=== PATIENT | male | born 1945 | race Caucasian/White ===

== ENCOUNTER 2017-06-19 22:35 | Inpatient (IN) | payer MEDICARE, BC ==
[2017-06-19] MEDS ORDERED: Cefepime 2 GM/10 ML SYR ONE (23:16)
[2017-06-19] MEDS ORDERED: methylPREDNISolone Sod Succ/PF 125 MG/2 ML VIAL ONE (23:16)
[2017-06-19] MEDS ORDERED: Acetaminophen 500 MG TAB ONE (23:16)
--- NOTE | 2017-06-19 23:19 | RAD ---
PORTABLE CHEST: History: Shortness of breath. FINDINGS: Comparison 01-27-17. Heart size is within normal limits. There are chronic lung changes with elevation of the right hemidi aphragm. No definite acute process. Interstitial change in the left base appears to be scarring and i s less prominent than on the prior exam. IMPRESSION: Chronic lung change. POS: H
[2017-06-19 23:21] LABS: INR-International Normal Ratio 1.1; PTT 29.1 SEC (22.9-36.1); Prothrombin Time 14.1 SEC (12.0-14.7)
[2017-06-19 23:29] LABS: Band 24 % (5-11); Hemoglobin 14.3 g/dL (14.0-18.0); Lymphocytes 5 % (21-51); MDiff Complete? YES; Mean Corpuscular HGB CONC 33.5 g/dL (32.0-36.0); Mean Corpuscular Hemoglobin 31.5 pg (27.0-31.0); Mean Corpuscular Volume 93.9 fl (80.0-94.0); Mean Platelet Volume 7.3 fL (7.4-10.4); Monocytes 2 % (0-10); Neutrophil 69 % (42-75); PLT Morphology Comment Appears Adequate; Platelet Count 261 thou/uL (130-400); RBC Distribution Width 13.5 % (11.5-14.5); Red Blood Cell (RBC) Count 4.54 mill/uL (4.70-6.10); White Blood Cell (WBC) Count 20.5 thou/uL (4.8-10.8)
[2017-06-19] MEDS ORDERED: Oseltamivir 75 MG CAP PO SCH (23:30)
[2017-06-19 23:36] LABS: pH, Arterial 7.34 (7.35-7.45)
[2017-06-19 23:37] LABS: Actual Bicarbonate (HCO3a) 29.7 mEq/L (22-26); Base Excess (BEa) 2.9 mEq/L (0 (+/-) 2.5); CO2 Tension 56.2 mmHg (35.0-45.0); O2 Tension (PaO2) 79.3 mmHg (80.0-100.0)
[2017-06-19 23:38] LABS: ALT (SGPT) 31 U/L (8-55); AST (SGOT) 30 U/L (5-34); Albumin 3.8 g/dL (3.4-4.8); Alkaline Phosphatase 67 U/L (40-150); Anion Gap 13 mmol/L (10-20); BUN (Urea Nitrogen) 12 mg/dL (8.4-25.7); Bilirubin, Total 0.9 mg/dL (0.2-1.2); CK (CPK) 143 U/L (30-200); Calc. Creatinine Clearance 0 mL/min (70-130); Calcium 9.1 mg/dL (7.8-10.44); Carbon Dioxide 29 mmol/L (23-31); Chloride 99 mmol/L (98-107); Estimated GFR-MDRD Greater than 90; Globulin 2.7 g/dL (2.4-3.5); Glucose 116 mg/dL (83-110); Lipase 10 U/L (8-78); Potassium 3.9 mmol/L (3.5-5.1); Protein, Total 6.5 g/dL (5.8-8.1); Sodium 137 mmol/L (136-145)
[2017-06-19 23:38] LABS: Analyzer IN Cardio ER; Calcium, Ionized 1.1 mmol/L (1.12-1.30); Puncture Site RRA
[2017-06-19 23:41] LABS: CKMB 4.6 ng/mL (0-6.6); Troponin I Less than 0.010 ng/mL (< 0.028)
[2017-06-19] MEDS ORDERED: Albuterol Sulfate 2.5 mg/3 ml Neb ONE (23:56)
[2017-06-20] MEDS ORDERED: HYDROcodone/Acetaminophen 10/325 mg Tablet PO PRN (03:18)
[2017-06-20] MEDS ORDERED: Ondansetron HCl/PF 4 MG/2 ML Vial IVP PRN (03:18)
[2017-06-20] MEDS ORDERED: HYDROcodone/Acetaminophen 5/325 mg Tablet PO PRN (03:18)
[2017-06-20] MEDS ORDERED: Ondansetron ODT 4 MG TAB PO PRN (03:18)
[2017-06-20] MEDS ORDERED: Albuterol Sulfate 2.5 mg/3 ml Neb NEB PRN (03:18)
[2017-06-20 03:48] VITALS: BMI 20.6
--- NOTE | 2017-06-20 03:51 | HP ---
DATE OF ADMISSION: 06/20/2017 CHIEF COMPLAINT: Shortness of breath. HISTORY OF PRESENT ILLNESS: This is a 71-year-old white male known patient to Dr. Tidwell for a COPD . Patient has been following up with Dr. Tidwell last time he visited him was on the last Monday as a regular followup visit and the patient was having some persistent cough with sputum production, so he was started on some antibiotic and following that, the patient had visited at home his grandchi ld 1-year-old was sick with a fever and a cough. The patient since then he was feeling very weak and this was followed by cough and shortness of breath worsening. Patient is a nonsmoker and has been t rying to quit smoking. No history of alcohol, no history of illicit drug use. The patient has felt acutely short of breath today and he decided to come to the ER for further evaluation. When the david ent arrived to the ER, the patient was pretty hypoxic with fever and patient was tested for the flu, which came back negative, but he was given Tamiflu in the ER. Respiratory panel was sent for culture s. The patient had an initial ABG with a pH of 7.3 and CO2 retention of 56, pO2 of 79. The patient was started on the BiPAP and he was doing fine. He was able to speak in sentences while he was on th e BiPAP. He denies having any chest pain, no nausea, no vomiting. He had low blood pressures while on the BiPAP, but according to the , he always runs low blood pressures. He was given 2 liters o f fluid bolus in the ER, he still remained in 91/55 with a map of 100. PAST MEDICAL HISTORY: 1. Chronic obstructive pulmonary disease. 2. History of chronic respiratory failure on home oxygen. 3. Posttraumatic stress disorder. 4. Multiple thoracic spine compression fractures. PAST SURGICAL HISTORY: Significant for left knee surgery and bilateral cataract surgery. ALLERGIES: No known drug allergies. SOCIAL HISTORY: The patient is an ex-smoker, quit smoking a few weeks ago. He drinks alcohol occasi onally. No history of illicit drug use. FAMILY HISTORY: Has a history of congestive heart failure at the age of 70s, both the parents. HOME MEDICATIONS: Home medications have been reconciled. Please see the medication list. ALLERGIES: No known drug allergies. REVIEW OF SYSTEMS: All 12 systems are reviewed with the patient thoroughly and found to be negative at this time. Constitutional: Weight loss or gain, sense of well-being, ability to conduct usual ac tivities, exercise tolerance. Skin/Breast: Rash, itching, changes in hair growth or loss, nail herrera ges, breast lumps, tenderness, swelling, nipple discharge. Eyes: Vision, double vision, tearing, bl ind spots, pain. ENT/Mouth: Headaches (location, time of onset, duration, precipitating factors), v ertigo, lightheadedness, injury. Vision, double vision, tearing, blind spots, pain, nose bleeding, c olds, obstruction, discharge, dental difficulties, gingival bleeding, dentures, neck stiffness, pain, tenderness, masses in thyroid or other areas. Cardiovascular: Precordial pain, substernal distress , palpitations, syncope, dyspnea on exertion, orthopnea, nocturnal paroxysmal dyspnea, edema, cyanosi s, hypertension, heart murmurs, varicosities, phlebitis, claudication. Respiratory: Pain, shortness of breath, wheezing, stridor, cough, hemoptysis, fever or night sweats. Gastrointestinal: Poor yoav etite, dysphagia, indigestion, abdominal pain, heartburn, eructation, nausea, vomiting, hematemesis, jaundice, constipation, or diarrhea, abnormal stools (jossie-colored, tarry, bloody, greasy, foul smell ing), flatulence, hemorrhoids, recent changes in bowel habits. Genitourinary: Urgency, frequency, d ysuria, nocturia, hematuria, polyuria, oliguria, unusual (or change in) color of urine, stones, hesit salty, change in size of stream, dribbling, acute retention or incontinence, libido, potency. Musculo skeletal: Pain, swelling, redness or heat of muscles or joints, limitation, of motion, muscular weak ness, atrophy, cramps. Neurologic/Psychiatric: Convulsions, paralyses, tremor, incoordination, para sthesias, difficulties with memory of speech, sensory or motor disturbances, or muscular coordination (ataxia, tremor), emotional problems, anxiety, depression, previous psychiatric care, unusual percep tions, hallucinations. Allergy/Immunologic: Skin rash, anemia, bleeding tendency, polydipsia, polyu mirtha, intolerance to heat or cold. PHYSICAL EXAMINATION: VITAL SIGNS: Blood pressures are 91/55, heart rate is 90, respiratory rate is 18, saturation is 92% on 30% FiO2 on BiPAP. GENERAL: The patient is seen lying in the bed on BiPAP, is alert and oriented. HEENT: Atraumatic, normocephalic. PERRLA. Extraocular movements were intact. Oral mucosa is pink and moist. CARDIOVASCULAR: S1, S2 normal. No murmurs, rubs, or gallops. LUNGS: Bilateral air entry was equal. No wheezing, no crackles. ABDOMEN: Soft, nontender, no guarding, no rebound tenderness. Bowel sounds are normal. MUSCULOSKELETAL: No calf tenderness. No pedal edema. No joint tenderness, no joint swelling. SKIN: No cyanosis, no edema, no rash, no pallor. NEUROLOGIC: Cranial nerve examination II through XII intact. No focal deficits are noted. LABORATORY DATA: WBC is 20.5, hemoglobin is 14.3, hematocrit 42.7, platelets 261. Sodium 137, potas sium 3.9, chloride is 99, bicarbonate is 29, BUN 12, creatinine 0.83. Blood gases pH was 7.3, pCO2 56.2, pO2 of 79.3. Influenza A and B were negative. ASSESSMENT AND PLAN: 1. Acute hypoxic respiratory failure. 2. Acute chronic obstructive pulmonary disease exacerbation. 3. Acute hypotension. 4. Sepsis. 5. Hypertension. PLAN: 1. Plan is to admit this patient to the IMCU. At this time, we will continue the patient on the BiP AP at this settings and we will repeat the ABG in the morning. Patient was on BiPAP almost for an ho ur and he continues to be short of breath, but his wheezing has much improved. We will continue with the DuoNebs and albuterol nebulizer treatments. We will start the patient on Solu-Medrol at 40 mg I V q.6 hours. We will consult Dr. Tidwell, who was known patient to him and has been recently followi ng up. 2. The patient was on antibiotic from Dr. Tidwell. At this time, we will start the patient on Levof loxacin 750 mg IV daily for his sepsis-like picture at this time. We will get the sputum cultures an d blood cultures pending at this time. 3. Patient has low blood pressures, likely from the sepsis. He was given 2 liters of fluid boluses in the ER. We will continue with the normal saline at 100 mL an hour and closely monitor for any rhonda dence of volume overload. 4. Deep venous thrombosis prophylaxis, Lovenox 40 mg subcu daily. I spent 75 minutes of this patient. Of this, one hour is the critical care time.
[2017-06-20] MEDS: Sodium Chloride 0.9% 1,000 ML IV SCH ×3 (04:22→23:10)
[2017-06-20 04:57] LABS: Anion Gap 10 mmol/L (10-20); BUN (Urea Nitrogen) 11 mg/dL (8.4-25.7); Calc. Creatinine Clearance 74 mL/min (70-130); Calcium 7.8 mg/dL (7.8-10.44); Carbon Dioxide 25 mmol/L (23-31); Chloride 105 mmol/L (98-107); Estimated GFR-MDRD Greater than 90; Glucose 162 mg/dL (83-110); Potassium 4.1 mmol/L (3.5-5.1); Sodium 136 mmol/L (136-145)
[2017-06-20 05:20] LABS: Band 34 % (5-11); Hemoglobin 11.9 g/dL (14.0-18.0); Lymphocytes 1 % (21-51); MDiff Complete? YES; Mean Corpuscular HGB CONC 32.2 g/dL (32.0-36.0); Mean Corpuscular Hemoglobin 30.6 pg (27.0-31.0); Mean Corpuscular Volume 94.9 fl (80.0-94.0); Mean Platelet Volume 7.4 fL (7.4-10.4); Monocytes 3 % (0-10); Neutrophil 62 % (42-75); PLT Morphology Comment Appears Adequate; Platelet Count 227 thou/uL (130-400); RBC Distribution Width 13.5 % (11.5-14.5); Red Blood Cell (RBC) Count 3.89 mill/uL (4.70-6.10); White Blood Cell (WBC) Count 26.5 thou/uL (4.8-10.8)
[2017-06-20] MEDS: Budesonide 0.5 MG/2 ML NEB INH SCH ×2 (07:10→19:43)
[2017-06-20] MEDS ORDERED: Oseltamivir 75 MG CAP PO SCH (09:00)
[2017-06-20] MEDS: Enoxaparin Sodium 40 MG/0.4 ML SYRINGE SC SCH (09:36)
[2017-06-20] MEDS: Famotidine/PF 20 mg/2ml Vial SLOW IVP SCH ×2 (09:37→20:34)
[2017-06-20] MEDS: Docusate 100 MG CAP PO SCH ×2 (09:37→20:35)
--- NOTE | 2017-06-20 09:53 | CON ---
DATE OF CONSULTATION: 06/20/2017 HISTORY: He is a 71-year-old gentleman who saw Dr. Tidwell a few days ago with symptoms of shortness of breath. He presents now with fever, cough, and chest discomfort. X-ray in the ER showed elevated right hemidiaphragm. He has a temperature of 102. The patient has known history of COPD. This morning he is on BiPAP. He feels better. Denies any pa in, breathing is better. His sputum is still relatively clear. PAST MEDICAL HISTORY: Pertinent for severe COPD requiring low flow O2 at home. History of reflux. PAST SURGICAL HISTORY: Cataract surgery, knee surgery. HOSPITALIZATIONS: Previous hospitalization here prolonged with reviewing his old medical records lef t-sided pneumonia, posttraumatic stress syndrome, multiple thoracic spine fractures during his last v isit 01/2017. TOBACCO/ALCOHOL: Tobacco, quit smoking last year, no alcohol abuse. SOCIAL/FAMILY HISTORY: Otherwise unremarkable. MEDICATIONS: His list of medication from home included DuoNeb, ibuprofen, budesonide, aspirin, Brova na, clonazepam 0.5, prednisone 10 a day, low flow O2. ALLERGIES: None. FAMILY HISTORY: Unremarkable. Please note I reviewed all his old medical records. No family members here to discuss additional inf ormation from them. REVIEW OF SYSTEMS: Ten point negative. PHYSICAL EXAMINATION: VITAL SIGNS: He sats are 90% on BiPAP. Blood pressure 90/80, respiration 18, pulse 80. GENERAL: Awake, responsive. CHEST: Decreased breath sounds, no wheezing. CARDIAC: Normal S1-S2. No gallops. ABDOMEN: Soft. No masses. NEUROLOGIC: Awake, alert, responsive. LABORATORY: White count 26,000, H&H 9 and 36, platelet count is 270, pO2 of 59, pO2 63.7. Electroly silvana are normal. I reviewed all of his x-ray reports and all of his lab tests. His influenza titer was negative. IMPRESSION: 1. Chronic obstructive pulmonary disease exacerbation with elevated hemidiaphragm. 2. Negative influenza titer 3. Leukocytosis. PLAN: I agree with broad-spectrum antibiotics, Tamiflu. I will repeat influenza titer, if it is neg ative I will discontinue the Tamiflu. Continue hydration, neb treatments, steroids. PT and supportive care. This is a consultation note on the patient of which was 70 minutes, [facility].
[2017-06-20] MEDS: Mometasone/Formoterol 120 PUFF INHALER INH SCH (20:04)
[2017-06-21] MEDS ORDERED: clonazePAM 0.5 MG TAB PO PRN (03:23)
[2017-06-21] MEDS: Sodium Chloride 0.9% 1,000 ML IV SCH (07:35)
[2017-06-21] MEDS: Docusate 100 MG CAP PO SCH (07:57)
[2017-06-21] MEDS: Enoxaparin Sodium 40 MG/0.4 ML SYRINGE SC SCH (07:57)
[2017-06-21] MEDS: Famotidine/PF 20 mg/2ml Vial SLOW IVP SCH (07:57)
[2017-06-21] MEDS: Budesonide 0.5 MG/2 ML NEB INH SCH (08:29)
--- NOTE | 2017-06-21 08:29 | PDOC.PULPN ---
Progress Note: Subj/Obj - Subjective Date: 06/21/17 Time: 08:28 Narrative: Feels better and wants to go home - ROS Constitutional: weakness Respiratory: congestion, short of breath - Objective Allergies/Adverse Reactions: Allergies Allergy/AdvReac Type Severity Reaction Status Date / Time No Known Allergies Allergy Verified 06/20/17 03:47 Medications: Current Medications Hydrocodone Bitart/Acetaminophen ([place] 10/325) 1 tab PO Q4H PRN PRN Reason: Moderate Pain (4-6) Hydrocodone Bitart/Acetaminophen (Independence 5/325) 1 tab PO Q4H PRN PRN Reason: Moderate Pain (4-6) Albuterol Sulfate (Ventolin) 2.5 mg NEB Q2H PRN PRN Reason: SOB &/or Wheezing Albuterol/Ipratropium (Duoneb) 3 ml NEB [id number] [facility] Last Admin: 06/21/17 03:02 Dose: 3 ml Budesonide (Pulmicort Neb Solution) 0.5 mg INH BID-RT [facility] Last Admin: 06/20/17 19:43 Dose: 0.5 mg Clonazepam (Klonopin) 0.5 mg PO BIDPRN PRN PRN Reason: Anxiety/Agitation Last Admin: 06/21/17 03:28 Dose: 0.5 mg Docusate Sodium (Colace) 100 mg PO BID [facility] Last Admin: 06/21/17 07:57 Dose: Not Given Enoxaparin Sodium (Lovenox) 40 mg SC 0900 [facility] Last Admin: 06/21/17 07:57 Dose: 40 mg Famotidine (Pepcid) 20 mg SLOW IVP Q12HR [facility] Last Admin: 06/21/17 07:57 Dose: 20 mg Levofloxacin 750 mg/ Device 150 mls @ 100 mls/hr IVPB Q24HR [facility] Last Admin: 06/20/17 23:09 Dose: 150 mls Sodium Chloride (Normal Saline 0.9%) 1,000 mls @ 100 mls/hr IV .Q10H [facility] Last Admin: 06/21/17 07:35 Dose: Not Given Methylprednisolone Sodium Succinate (Solu-Medrol) 40 mg IVP Q6HR [facility] Last Admin: 06/21/17 05:46 Dose: 40 mg Mometasone Furoate/Formoterol Fumar (Dulera 200 Mcg/5 Mcg Inhaler) 2 puff INH BID-RT [facility] Last Admin: 06/20/17 20:04 Dose: 2 puff Ondansetron HCl (Zofran Odt) 4 mg PO Q6H PRN PRN Reason: Nausea/Vomiting Ondansetron HCl (Zofran) 4 mg IVP Q6H PRN PRN Reason: Nausea/Vomiting MAR Reviewed: Yes Vital Signs: Vital Signs Temp 98.6 F 06/21/17 07:11 Pulse 94 06/21/17 07:11 Resp 19 06/21/17 07:11 BP 97/50 L 06/21/17 07:11 Pulse Ox 100 06/21/17 07:11 Intake & Output 06/20/17 06/21/17 06/21/17 18:59 06:59 18:59 Intake Total 1591 1200 Output Total 2024 610 Balance -434 590 Intake: Intake, IV Amount 891 800 Sodium Chloride 0.9% 1, 891 000 ml @ 100 mls/hr IV . Q10H [facility] Rx#:[id number] Oral 700 400 Output: Urine 2024 610 Other: Voiding Method Urinal Urinal # Bowel Movements 1 Progress Note: Exam - Physical Exam Deviation from normal: chronically dyspnic HEENT: PERRLA Neck: no nodes, no JVD Cardiovascular: RRR Focused Respiratory Location: decreased breath sounds: Right, Left (no wheezes) Gastrointestinal: soft, non-tender Musculoskeletal: edema present Neurological: non-focal, normal sensation, moves all 4 limbs Lymphatic: no nodes Psychiatric: normal affect, A&O x 3 Skin: no rash Progress Note: Data - Labs Result Diagrams: 06/20/17 04:29 06/20/17 04:29 Lab results: Laboratory Results 06/20/17 06/20/17 04:29 04:29 WBC 26.5 H RBC 3.89 L Hgb 11.9 L Hct 36.9 L MCV 94.9 H MCH 30.6 MCHC 32.2 RDW 13.5 Plt Count 227 MPV 7.4 Neutrophils % (Manual) 62 Band Neuts % (Manual) 34 H Lymphocytes % (Manual) 1 L Monocytes % (Manual) 3 Plt Morphology Comment Appears Adequate Sodium 136 Potassium 4.1 Chloride 105 Carbon Dioxide 25 Anion Gap 10 BUN 11 Creatinine 0.75 Estimated GFR (MDRD) Greater than 90 Glucose 162 H Calcium 7.8 Progress Note: A/P - Problems (1) Acute on chronic respiratory failure with hypoxia Current Visit: No Status: Acute Code(s): J96.21 - ACUTE AND CHRONIC RESPIRATORY FAILURE WITH HYPOXIA (2) COPD exacerbation Current Visit: No Status: Acute Code(s): J44.1 - CHRONIC OBSTRUCTIVE PULMONARY DISEASE W (ACUTE) EXACERBATION - Plan Plan: Back to baseline Should be good to go home (he has trilogy ventilator at home) Finish out 10 days of levaquin Can wean back down to his home prednisone dose over the next week
[2017-06-21] MEDS: Mometasone/Formoterol 120 PUFF INHALER INH SCH (08:30)
[2017-06-21 08:45] LABS: Hemoglobin 12.8 g/dL (14.0-18.0); Mean Corpuscular HGB CONC 31.5 g/dL (32.0-36.0); Mean Corpuscular Hemoglobin 30.3 pg (27.0-31.0); Mean Corpuscular Volume 96.2 fl (80.0-94.0); Mean Platelet Volume 7.7 fL (7.4-10.4); Platelet Count 227 thou/uL (130-400); RBC Distribution Width 13.7 % (11.5-14.5); Red Blood Cell (RBC) Count 4.23 mill/uL (4.70-6.10); White Blood Cell (WBC) Count 24.8 thou/uL (4.8-10.8)
[2017-06-21] MEDS ORDERED: predniSONE 20 MG TAB PO SCH (09:00)
[2017-06-21] MEDS ORDERED: clonazePAM 0.5 MG TAB PO SCH (09:00)
[2017-06-21 09:01] LABS: Band 23 % (5-11); Lymphocytes 2 % (21-51); MDiff Complete? YES; Monocytes 2 % (0-10); Neutrophil 73 % (42-75); PLT Morphology Comment Appears Adequate; Toxic Granulation SLIGHT
[2017-06-21 09:03] LABS: Anion Gap 10 mmol/L (10-20); BUN (Urea Nitrogen) 8 mg/dL (8.4-25.7); Calc. Creatinine Clearance 81 mL/min (70-130); Calcium 8.8 mg/dL (7.8-10.44); Carbon Dioxide 29 mmol/L (23-31); Chloride 104 mmol/L (98-107); Estimated GFR-MDRD Greater than 90; Glucose 161 mg/dL (83-110); Magnesium 2.4 mg/dL (1.6-2.6); Potassium 4.3 mmol/L (3.5-5.1); Sodium 139 mmol/L (136-145)
[2017-06-21 11:15] VITALS: BP 113/50; TEMP 99.4
--- NOTE | 2017-06-22 14:41 | DIS ---
DATE OF ADMISSION: 06/20/2017 DATE OF DISCHARGE: 06/21/2017 DISCHARGE DIAGNOSES: 1. Acute hypoxic respiratory failure. 2. Acute exacerbation of chronic obstructive pulmonary disease. 3. Acute hypotension. 4. Essential hypertension, chronic. 5. Sepsis. 6. Posttraumatic stress disorder. 7. History of multiple thoracic spine compression fractures. 8. Acute on chronic hypoxic respiratory failure. CONSULTATIONS: 1. Pulmonary Critical Care, Rolo Vasques M.D. 2. Andres Tidwell M.D. PROCEDURES: None. HISTORY AND PHYSICAL: Mr. Montelongo is a 72-year-old male with a history of chronic hypoxic respiratory failure and COPD who follows with Dr. Tidwell. The patient presented to the Emergency Department wi th shortness of breath and he has recently been having persistent cough and sputum production. He wa s started on antibiotic, visited family members with a sick child and since then he was feeling badly and feeling worse. He felt acutely worse on the day of admission and so he presented to the Emergen cy Department for evaluation. He was reportedly hypoxic with a heart rate of 90, oxygen saturation 9 2% on 30% FIO2 BiPAP, blood pressure low at 91/55 and reportedly febrile. White blood cell count was elevated at 20.5. We were called to admit. HOSPITAL COURSE: The patient was seen by Dr. Hernandez in the Emergency Department. The patient was adm itted to the intermediate care unit on BiPAP and Pulmonary was consulted. The patient was seen by Dr. Vasques same day. He recommended broad spectrum antibiotics, Tamiflu, repea ting influenza titer and hydration and treatment with steroids. Overnight 06/20 to 06/21, Dr. Tidwell took over for the Pulmonary Service. The patient was feeling b michael and wanting to go home. White blood cell count was 26.5 from the steroids. Vital signs were n ormal and his chemistry was normal. The patient has a Trilogy ventilator at home and was cleared for discharge by Dr. Tidwell and was recommended to finish a 10-day course of Levaquin. PHYSICAL EXAMINATION: The patient was seen and examined on the day of discharge. Discharge plan and disposition were discussed with the patient [id number] at the bedside. DISCHARGE MEDICATIONS: 1. Albuterol nebulizer treatment 2.5 mg nebulized every 2 hours as needed. 2. Levofloxacin 750 mg p.o. daily to finish 10 days. 3. Prednisone 20 mg p.o. b.i.d. to decrease by 10 mg every day, every second or third day until tape red off. 4. DuoNeb q.4. hours p.r.n. 5. Brovana 15 mcg inhaled b.i.d. 6. Budesonide 500 mg nebulized b.i.d. 7. Clonazepam 0.5 mg b.i.d. p.r.n. anxiety. 8. Ibuprofen 600 mg p.o. daily as needed for pain. 9. Aspirin 81 mg daily. He is to hold his regular dose of prednisone until he finishes his current steroids. DISCHARGE ACTIVITY: As tolerated per cardiopulmonary limits. DISCHARGE DIET: Heart healthy recommended. FOLLOWUP APPOINTMENTS: 1. Primary care physician within a week, Dr. Cyn Florian. 2. Dr. Andres Tidwell in 2-3 weeks. DISCHARGE CONDITION: Stable. DISPOSITION: Being discharged home via private vehicle.
== END 2017-06-21 13:46 | disposition home or self-care (01) | DRG 871 ==
LOC: ERS 22:35 → CCU 06-20 01:00 → IMCU/EMU 06-20 16:47
PROVIDERS: ADMIT Family Medicine; ATTEND Family Medicine
PROC: 5A09357 Assistance with Respiratory Ventilation, Less than 24 Consecutive Hours, Continuous Positive Airway Pressure (ICD-10-PCS; principal; 2017-06-20)
DX: A41.9 Sepsis, unspecified organism (principal); J96.21 Acute and chronic respiratory failure with hypoxia; J44.1 Chronic obstructive pulmonary disease with (acute) exacerbation; I10 Essential (primary) hypertension; Z87.891 Personal history of nicotine dependence
CPT/HCPCS: 36415; 71045; 80048; 80053; 82553; 82805; 83605; 83690; 83735; 83880; 84443; 84484; 85025; 85610; 85730; 86850; 86900; 86901; 87040; 87070; 87205; 87633; 87804; 93005; 94640; 94660; 94664; 96361; 96365; 96366; 96375; G8978-GP-CM; G8979-GP-CK; J0692; J1650; J1956; J2920; J2930; J3370; J7611; J7620; J7626; S0028

== ENCOUNTER 2017-12-06 09:47 | Outpatient (CLI) | payer MEDICARE, BC ==
--- NOTE | 2017-12-06 11:02 | RAD ---
TWO VIEWS CHEST: 12/06/2017 HISTORY: A 72-year-old with a history of dyspnea. COMPARISON: 07/02/2015 FINDINGS: Two views of the chest demonstrate multiple midthoracic compression fractures, which have increased s jami the previous exam from 2016, with developing kyphosis also being present. There is diffuse oste oporosis seen. There is some elevation of the right hemidiaphragm. There are areas of air space opacities in the left lung base, concerning for areas of left lower lobe pneumonia. IMPRESSION: 1. Marked developing kyphosis and compression fractures in the mid thoracic region. 2. Left lower lobe area of opacity, concerning for possible pneumonia. Follow-up films to resolutio n recommended. POS: [facility]
== END 2017-12-06 09:48 | disposition home or self-care (01) ==
LOC: RAD 09:47
PROVIDERS: ATTEND Internal Medicine Critical Care Medicine
DX: R06.00 Dyspnea, unspecified (principal); M40.209 Unspecified kyphosis, site unspecified; S22.009A Unspecified fracture of unspecified thoracic vertebra, initial encounter for closed fracture; R91.8 Other nonspecific abnormal finding of lung field
CPT/HCPCS: 71046

== ENCOUNTER 2018-04-13 11:10 | Emergency (ER) | payer MEDICARE, BC ==
--- NOTE | 2018-04-13 13:50 | RAD ---
RIGHT WRIST 3 VIEWS: HISTORY: Fall. COMPARISON: None. FINDINGS: There is mild degenerative disease of the distal radial ulnar joint. There is no acute fracture or m alalignment. IMPRESSION: No acute fracture or malalignment. POS: [facility]
--- NOTE | 2018-04-13 13:54 | RAD ---
LUMBAR SPINE 3 VIEWS: HISTORY: Fall. COMPARISON: Lumbar spine radiograph of 2011. FINDINGS: New from the comparison examination is a wedge compression fracture of T12. Moderate degenerative di sk space height loss at L3-4, L4-5, and L5-S1. Advanced disk arthrosis lower lumbar spine. Extensive vascular calcifications. IMPRESSION: New since the prior examination wedge compression fracture of T12 with approximately 10-15% height lo ss. POS: [facility]
--- NOTE | 2018-04-13 13:57 | RAD ---
RIGHT HAND 3 VIEWS: HISTORY: Fall. COMPARISON: None. FINDINGS: No acute displaced fracture or malalignment. Soft tissues are unremarkable. IMPRESSION: No acute displaced fracture or malalignment. POS: [facility]
--- NOTE | 2018-04-13 13:59 | CT ---
CT BRAIN WITHOUT CONTRAST: HISTORY: Fall. COMPARISON: None. FINDINGS: Mild to moderate microvascular ischemic changes in the subcortical and deep white matter. No acute h emorrhage. No infarction. There is a right frontal soft tissue contusion. IMPRESSION: 1. No acute posttraumatic intracranial sequelae. 2. Small forehead soft tissue contusion with intact underlying calvarium. POS: [facility]
--- NOTE | 2018-04-13 16:15 | RAD ---
RADIOGRAPH CERVICAL SPINE 3 VIEWS: DATE: 04/13/2018 TIME: 3:46 p.m. HISTORY: A 72-year-old male status post acute cervical trauma from fall. FINDINGS: The levels inferior to the C5-C6 level are obscured by the shoulders on the lateral view. The odonto id is obscured on the open-mouth view. Hypertrophic degenerative facet changes at several levels on the left. The visualized vertebral body heights are maintained. Moderate disk space narrowing at C4 -C5 and C5-C6. No prevertebral soft tissue swelling. Diffuse osteopenia. IMPRESSION: 1. Significant portions of the cervical spine are not visualized and cannot be evaluated. 2. cervical spondylosis: Moderate degenerative disk changes at C4-C5 and C5-C6, and multilevel left facet osteoarthrosis. 3. Osteopenia. SHIVAM [] POS: [facility]
--- NOTE | 2018-04-13 16:18 | RAD ---
RADIOGRAPH THORACIC SPINE THREE VIEWS: DATE: 04/13/2018 TIME: 3:49 p.m. HISTORY: A 72-year-old male, status post acute thoracic trauma from fall. COMPARISON: 01/08/2016 FINDINGS: Diffuse osteopenia. Multiple compression fractures in the mid and lower thoracic spine. There is a greater number of vertebral bodies involved with the compression fractures, and some of the loss of h eight has worsened, since the previous. Again noted are the old, displaced, healed fracture deformities at the posterior aspects of the right third, fourth, and fifth ribs. IMPRESSION: 1. Multiple compression fractures of the thoracic spine, at the mid and lower levels. At least some of them are old. Others are of indeterminate age, but occurred some time after the previous thoraci c spine radiograph of 01/08/2016. 2. Diffuse osteopenia. 3. Old right rib fracture deformities. POS: [facility]
[2018-04-13] MEDS ORDERED: Acetaminophen 325 MG TAB ONE (16:19)
--- NOTE | 2018-04-13 16:20 | RAD ---
RADIOGRAPH SACRUM AND COCCYX TWO VIEWS: 04/13/2018 HISTORY: A 72-year-old male with acute, traumatic sacrococcygeal pain. FINDINGS: There is diffuse osteopenia. No obvious fracture is identified, but the osteopenia and the overlying bowel gas and stool could easily obscure a fracture. There are high-grade degenerative facet change s in the lower lumbar spine. IMPRESSION: 1. No fracture identified. 2. Osteopenia. 3. Lower lumbar spondylosis with facet osteoarthrosis. POS: [facility]
== END 2018-04-13 19:37 | disposition left against medical advice (07) ==
LOC: ERS 11:10
DX: S22.089A Unspecified fracture of T11-T12 vertebra, initial encounter for closed fracture (principal); J44.9 Chronic obstructive pulmonary disease, unspecified; F90.9 Attention-deficit hyperactivity disorder, unspecified type; Z79.1 Long term (current) use of non-steroidal anti-inflammatories (NSAID); Z79.82 Long term (current) use of aspirin; Z79.899 Other long term (current) drug therapy; W18.09XA Striking against other object with subsequent fall, initial encounter
CPT/HCPCS: 70450; 72040; 72072; 72100; 72220

== ENCOUNTER 2018-04-20 09:40 | Inpatient (IN) | payer MEDICARE, BC ==
[2018-04-20] MEDS ORDERED: EPINEPHrine 1 MG/10 ML Abboject SYRINGE ONE (09:56)
[2018-04-20] MEDS ORDERED: EPINEPHrine 1 MG/ML AMP ONE (09:56)
[2018-04-20] MEDS ORDERED: Midazolam HCl 5 mg/ml Vial ONE (10:03)
[2018-04-20] MEDS ORDERED: fentaNYL Citrate/PF 2,000 MCG in Sodium Chloride 0.9% 60 ML IV SCH (10:09)
[2018-04-20 10:25] LABS: Mean Corpuscular HGB CONC 32.3 g/dL (32.0-36.0); Mean Corpuscular Hemoglobin 31.4 pg (27.0-31.0); Mean Corpuscular Volume 97.1 fL (78.0-98.0); Mean Platelet Volume 7.4 fL (7.4-10.4); Platelet Count 296 thou/uL (130-400); RBC Distribution Width 13.6 % (11.5-14.5); Red Blood Cell (RBC) Count 4.45 mill/uL (4.70-6.10); White Blood Cell (WBC) Count 14.3 thou/uL (4.8-10.8)
[2018-04-20] MEDS ORDERED: Piperacillin/Tazobactam 4.5 GM VIAL ONE (10:35)
--- NOTE | 2018-04-20 10:36 | RAD ---
SUPINE FRONTAL CHEST: Date: 04/20/18 COMPARISON: 06/19/17. HISTORY: Shortness of breath. FINDINGS: An endotracheal tube projects over the tracheal air column, the distal tip approximately 4-5 cm proxi mal to the edgardo. An enteric tube extends into the left upper quadrant. Supine imaging is provided, demonstrating elevation of right hemidiaphragm, stable. There is nonspecific increased linear density in the medial aspect of both lung bases. This nonspecific linear density has increased in the right cardiophrenic angle when compared to the prior examination. The increased linear density in the left base appears stable. Supine imaging limits assessment for pneumothorax and pleural fluid. There are old right-sided rib fr actures. IMPRESSION: Lines and tubes as above. Hazy increased density in the medial lung bases, right greater than left, w hich may signify infectious pneumonitis or aspiration. Follow-up to resolution advised. POS: [facility]
[2018-04-20 10:37] LABS: Actual Bicarbonate (HCO3a) 34.1 mEq/L (22-28); Analyzer IN Cardio ER; Base Excess (BEa) 6.5 mEq/L (-2.0 to +3.0); Calcium, Ionized 1.12 mmol/L (1.12-1.30); Carboxyhemoglobin (COHb) 0.9 gm% (0.0-3.0); Hemoglobin (Hb) 13.7 g/dL (14.0-18.0); Potassium - ABG Lab 3.52 mmol/L (3.70-5.30); pH, Arterial 7.36 (7.35-7.45)
[2018-04-20 10:39] LABS: CO2 Tension 62.3 mmHg (35.0-45.0)
[2018-04-20 10:40] LABS: ALV-art Gradient 162.325 (0-20); Puncture Site RBA
[2018-04-20 10:43] LABS: ALT (SGPT) 61 U/L (8-55); AST (SGOT) 33 U/L (5-34); Albumin 3.3 g/dL (3.4-4.8); Alkaline Phosphatase 135 U/L (40-150); BUN (Urea Nitrogen) 17 mg/dL (8.4-25.7); Bilirubin, Total 1.1 mg/dL (0.2-1.2); Calc. Creatinine Clearance 0 mL/min (70-130); Calcium 9.6 mg/dL (7.8-10.44); Estimated GFR-MDRD Greater than 90; Globulin 3.6 g/dL (2.4-3.5); Glucose 168 mg/dL (83-110); Protein, Total 6.9 g/dL (5.8-8.1)
[2018-04-20 10:47] LABS: CKMB 2.7 ng/mL (0-6.6); Troponin I Less than 0.010 ng/mL (< 0.028)
[2018-04-20 10:49] LABS: Band 38 % (5-11); Lymphocytes 6 % (21-51); MDiff Complete? YES; Monocytes 5 % (0-10); Neutrophil 51 % (42-75); PLT Morphology Comment Appears Adequate; Toxic Granulation SLIGHT
[2018-04-20 10:54] LABS: Anion Gap 18 mmol/L (10-20); Carbon Dioxide 32 mmol/L (23-31); Chloride 93 mmol/L (98-107); Potassium 4.2 mmol/L (3.5-5.1); Sodium 139 mmol/L (136-145)
[2018-04-20 11:31] LABS: Bilirubin Small (Negative); Blood, Urine Negative (Negative); Clarity CLEAR (Clear); Glucose, Urine (Dipstick) Negative (Negative); Leukocyte Negative (Negative); Nitrite Negative (Negative); Protein, Urine (Dipstick) 30 mg/dL (Neg-Trace); Specific Gravity, Urine 1.026 (1.002-1.036); pH, Urine 6.5 (5.0-9.0)
[2018-04-20 11:33] LABS: Bacteria/HPF None Seen HPF (None Seen); Hyaline Casts/LPF 7-10 HYALINE CAST LPF (0-3 Hyaline); Pathc Cast-AUWi Flag 0.58 (0-2.49); RBC/HPF 0-3 HPF (0-3); Squamous Epithelial 0-3 HPF (0-3); WBC/HPF None Seen HPF (0-3)
[2018-04-20] MEDS ORDERED: Norepinephrine 8 MG/0.9% NS 250 ML ONE (11:43)
--- NOTE | 2018-04-20 12:04 | CT ---
CTA OF THE THORAX UTILIZING IV CONTRAST WITH 3D REFORMATTED IMAGING: Date: 04/20/18 COMPARISON: Prior exam dated 06/26/15 and radiograph dated 01/08/16. FINDINGS: There is aspiration pneumonitis involving both lower lobes, as well as the right middle lobe. The con solidation slightly limits evaluation of the segmental vasculature of both lower lobes, right greater than left. No definite central or segmental pulmonary embolus is grossly evident within limitations of exam. There is severe emphysema. There is a calcified granuloma of the right upper lobe. There are calcifications involving the thoracic aorta and coronary arteries. The patient is intubated with a g astric catheter projecting into the stomach. Please see the separately dictated CT of the abdomen for results concerning the abdomen. There are compression abnormalities of T12, T10, T9, T8, and T7. The T8, T10, and T12 compression abnormalities are new from the comparison radiograph dated 01/08/16, bu t are otherwise age-indeterminate. There is diffuse osteopenia. IMPRESSION: 1. Bibasilar aspiration pneumonitis. 2. No definite central pulmonary embolus demonstrated. 3. Age-indeterminate compression abnormalities of T8, T10, and T12. T9 and T7 compression abnormalities were seen on comparison radiograph dated 01/08/16. POS: [facility]
--- NOTE | 2018-04-20 12:12 | CT ---
CT ABDOMEN WITH CONTRAST CT PELVIS WITH CONTRAST: DATE: 04/20/18 HISTORY: 72-year-old male with fever and respiratory distress. COMPARISON: CT abdomen and pelvis of 04/11/14. TECHNIQUE: IV injection of iodinated contrast media: Administered. Oral contrast media: Not administered. FINDINGS: There is chronic elevation of the right hemidiaphragm. There is a new finding of consolidations in th e posterior bilateral lower lobe lung bases. See separate of the chest CT of today. There is colonic interposition. Heavy atherosclerotic calcification of abdominal aorta, common iliac arteries, externa l iliac arteries, and internal iliac arteries, but no aneurysm. Dial catheter within a nearly empty urinary bladder. Diffuse mural thickening of the urinary bladder up to 12 mm. Large amount of stool w ithin the rectum. Normal rectal wall thickness. Multiple sigmoid and descending colonic diverticula a re present, but no signs of diverticulitis. Left renal lower pole parenchymal 1 cm Cyst. Otherwise no rmal kidneys, liver parenchyma, pancreas, adrenals, and spleen. No appendicitis. No small bowel dilat ion. No abscess, free fluid, or pneumoperitoneum, within the abdominal cavity or pelvic cavity. Nasog astric tube distal tip is in the proximal stomach. There is multilevel degenerative disc disease and degenerative facet disease, with scoliosis, in the lumbar spine. IMPRESSION: 1. Bilateral lower lobe pulmonary consolidations. 2. Dial catheter within a collapsed urinary bladder that apparently has mural thickening. It is unc ertain whether the mural thickening is entirely due to its collapsed state, or whether there is an ac stebbins cystitis. Clinical correlation is recommended. 3. Colonic diverticulosis without acute diverticulitis. 4. Severe lumbar spondylosis, with scoliosis. 5. Atherosclerosis of the abdominal aorta and iliac arteries. JNR POS: [facility]
[2018-04-20] MEDS ORDERED: Norepinephrine 8 MG/0.9% NS 250 ML IVPB SCH (12:59)
[2018-04-20] MEDS ORDERED: Ventilator Sedation Protocol 1 EACH FS ONE (12:59)
[2018-04-20] MEDS ORDERED: CCU Electrolyte Replacement 1 EACH FS ONE (12:59)
[2018-04-20] MEDS ORDERED: Potassium Chloride 40 MEQ in Sodium Chloride 0.9% 250 ML 250 ML IVPB PRN (13:03)
[2018-04-20] MEDS ORDERED: Potassium Phosphate 9 MMOL in Sodium Chloride 0.9% 100 ML IVPB PRN (13:03)
[2018-04-20] MEDS ORDERED: Magnesium 2 GM/NS 0.9% 100 ML 2 GM in Premix Bag 1 BAG IVPB PRN (13:03)
[2018-04-20] MEDS ORDERED: Magnesium Oxide 400 MG TAB PO PRN ×2 (13:03)
[2018-04-20] MEDS ORDERED: Potassium Chloride 40 MEQ in Premix Bag 1 BAG IVPB PRN (13:03)
[2018-04-20] MEDS ORDERED: Potassium Chloride 20 MEQ TAB PO PRN (13:03)
[2018-04-20] MEDS ORDERED: CCU ELECTROLYTE REPLACEMENT PROTOCOL FS PRN (13:03)
[2018-04-20] MEDS ORDERED: Potassium Phosphate 15 MMOL in Sodium Chloride 0.9% 250 ML 250 ML IV PRN (13:03)
[2018-04-20] MEDS ORDERED: Potassium Phosphate 12 MMOL in Sodium Chloride 0.9% 250 ML 250 ML IV PRN (13:03)
[2018-04-20] MEDS ORDERED: DISCONTINUE PREVIOUS NARCOTIC PAIN MEDICATIONS AND BENZODIAZEPINES FS SCH (13:05)
[2018-04-20] MEDS ORDERED: Propofol BOLUS 1,000 MG/100 ML VIAL IV PRN (13:05)
[2018-04-20] MEDS ORDERED: Fentanyl BOLUS 250 ML IVPB PRN (13:05)
[2018-04-20] MEDS ORDERED: Fentanyl CADD 250 ML IVPB SCH (13:05)
[2018-04-20] MEDS ORDERED: Morphine 2 MG/ML SYRINGE SLOW IVP PRN (13:05)
[2018-04-20] MEDS ORDERED: Propofol 1,000 MG/100 ML VIAL IV PRN (13:05)
[2018-04-20 13:52] LABS: Troponin I 0.013 ng/mL (< 0.028)
[2018-04-20] MEDS ORDERED: Piperacillin/Tazobactam 3.375 GM in Sodium Chloride 0.9% 100 ML IVPB SCH (14:00)
[2018-04-20] MEDS: Sodium Chloride 0.9% 1,000 ML IV SCH ×2 (14:00→23:51)
[2018-04-20 14:07] LABS: Lactic Acid 1.7 mmol/L (0.5-2.2)
[2018-04-20] MEDS: Piperacillin/Tazobactam 3.375 GM in Sodium Chloride 0.9% 100 ML IVPB SCH ×2 (14:55→21:53)
--- NOTE | 2018-04-20 15:11 | HP ---
PRIMARY CARE PHYSICIAN: Cyn Florian MD REASON FOR ADMISSION: Acute respiratory failure, bibasilar aspiration pneumonia. HISTORY OF PRESENT ILLNESS: A 72-year-old male who has severe COPD, on home oxygen therapy, who was brought to emergency room by paramedics for respiratory distress. The patient was tachypneic, tachycardic, and he was not maintaining oxygen saturation on BiPAP when he came to ER, and he was febrile. The patient was completely incoherent and that is why he required intubation. The patient had a right femoral central line placed and after intubation, his blood pressure dropped to 85/41. He remained tachycardic and febrile. He was in septic shock and that is why Levophed drip was started. Subsequently, the patient is being admitted to ICU for acute respiratory failure with hypoxia and hypercapnia, as well as septic shock, secondary to bibasilar pneumonia secondarily from aspiration. This patient has severe COPD. He has home oxygen therapy. He gets around at home by himself with some support. On when he was going to restroom , he tripped from tube and he fell down. At that time, he injured little bit on his head as well as his glass made him bruised around eye and he had laceration of the skin and that is why they went to local urgent care and the skin care was done. The patient Next day after , the patient was started having intermittent low-grade fever with chills, and he was also having increasing shortness of breath. He was also having cough as well as runny nose and sore throat. He was trying to manage his symptoms with a home medication and [id number] medication without any help. The patient also went to primary care physician who prescribed Augmentin, but the patient was taking those medication , but it was not helping per his . The patient's is present at bedside, who provides most of the history. When paramedics was called today, at that time he was saturating 77%, he was having very poor air entry, he was incoherent, and he was febrile. The patient was given 3 DuoNeb therapies by paramedics, and subsequently, he was brought to ER and then , he was intubated. REVIEW OF SYSTEMS: All review of systems tried to review with the patient, but unable to review at this point because of intubated status. PAST MEDICAL HISTORY: Chronic respiratory failure, on home oxygen therapy, severe COPD, hiatal hernia, and multiple thoracic spine compression fractures. PAST PSYCHIATRIC HISTORY: Posttraumatic stress disorder. PAST SURGICAL HISTORY: Bilateral cataract surgeries and left knee surgery. SOCIAL HISTORY: The patient is . He lives at home. He quit smoking 4 years ago. He drinks alcohol socially and rarely. He denies any other illicit drug abuse. FAMILY HISTORY: The patient's both parents had congestive heart failure in their 70s. CURRENT HOME MEDICATIONS: Based on our hospital record, the patient is on following medications; 1. DuoNeb q.4 hourly. 2. Brovana 15 mcg nebulization b.i.d. 3. Aspirin 81 mg daily. 4. Pulmicort nebulization b.i.d. 5. Clonazepam 0.2 mg b.i.d. p.r.n. 6. Albuterol nebulization q.2 hourly p.r.n. ALLERGIES: NO KNOWN DRUG ALLERGIES. EMERGENCY ROOM COURSE: So far in emergency room, the patient has given Levaquin , Levophed drip, vancomycin, IV fluid, Zosyn, fentanyl drip, and Versed. The patient was also given Zemuron and for intubation. PHYSICAL EXAMINATION: VITAL SIGNS: Currently, blood pressure 86/53, pulse 110, respiratory rate 20, temperature 101.8, and saturation 94% on ventilator. When he came to ER, he was hypotensive, tachycardic, tachypneic, and hypoxic. GENERAL: The patient is currently intubated, sedated. HEENT: Head, normocephalic and atraumatic. Eyes; pupils round and reactive to light. Extraocular muscle intact. ENT, dry mucous membranes. Purulent nasal discharge noted. Pharyngeal erythema noted. NECK: Supple. No JVD. No thyromegaly. No carotid bruits. LUNGS: Bilateral significantly reduced air entry. Few and expiratory wheezing heard at the lower part. Few rales heard. CARDIAC: S1 and S2, regular. Tachycardia. No murmur. No gallop. No rub. ABDOMEN: Soft. Bowel sounds present. No distension. No organomegaly. No mass. No suprapubic tenderness. BACK: Unremarkable. EXTREMITIES: Upper extremities; passive movement of all joints is normal. Lower extremities; passive movement of all joints is normal. SKIN: We noted variable healing stages of multiple bruises on his skin. His skin is very thin. NEUROLOGIC: Unable to assess at this point because the patient is intubated. PSYCHIATRIC: Unable to assess at this point because the patient is intubated. SIGNIFICANT LABORATORY DATA: CT angiography based on my review, bibasilar aspiration pneumonitis, age-indeterminate compression fracture of T8, T10, and T12. CT abdomen and pelvis showing bilateral lower lobe pulmonary consolidation, colonic diverticulitis, severe lumbar spondylosis, scoliosis and atherosclerosis. Chest x-ray based on my review, consistent with basilar pneumonia. CBC; WBC 14.3, hemoglobin 14.0, platelets 296 with bandemia. ABG; pH 7.36, CO2 of 62.3, O2 of 45.0, saturation 80.5%, bicarb 34.1. Sodium 139, potassium 4.2, BUN 17, creatinine 0.76, glucose 168, calcium 9.6, and lactic acid 2.3. LFT; AST 33, ALT 61, alkaline phosphatase 135, albumin 3.3. Urinalysis, unremarkable. ASSESSMENT AND PLAN: Impression: 1. Acute respiratory failure with history of chronic respiratory failure associated with hypoxia and hypercapnia, secondary to underlying bibasilar pneumonia as well as severe chronic obstructive pulmonary disease exacerbation. At this point, the patient is intubated. He did not tolerate BiPAP and require intubation. Pulmonary group is already consulted and evaluated this patient. The patient will remain in CCU. Ventilator will defer to Pulmonary group. Ventilation-sedation protocol will be initiated. We will monitor daily chest x-ray, CBC, BMP, and ABG, and we will treat underlying problem of pneumonia and chronic obstructive pulmonary disease. 2. Septic shock. This patient is hypotensive. He has severe sepsis with acute organ dysfunction with leukocytosis, bandemia, high-grade fever, and tachycardia. Source of infection is likely basilar pneumonia. The patient is already started on broad-spectrum antibiotic therapy with Levaquin 750 mg, Zosyn, and vancomycin. We will follow up on culture result and change antibiotic therapy accordingly. 3. Aspiration/community-acquired pneumonia, suspecting gram-positive cocci and gram-negative isauro. The patient is already on broad-spectrum antibiotic therapy with Levaquin, Zosyn, and vancomycin. 4. Chronic obstructive pulmonary disease exacerbation. DuoNeb therapy q.4 hourly, Brovana nebulization twice daily, Solu-Medrol 40 mg IV q.6 hourly, and empiric antibiotic therapy as mentioned above. 5. Goal of care and advance care directive discussion with . The patient's reports that the patient did not want to be tracheostomy, in case if this patient is not able to extubated successfully, then he does not want to be a tracheostomy. The patient's reports that one-time CPR is okay, but she does not want anymore. At this point, based on her request, we are keeping him as a full code. 6. Posttraumatic stress disorder. At this point, we will hold on anxiety medication. 7. Deep venous thrombosis prophylaxis. Lovenox 40 mg subcu daily. 8. Gastrointestinal prophylaxis. Protonix 40 mg IV daily. 9. Code status. As mentioned above, the patient will be full code. 10. Disposition plan; based on clinical course. We are expecting the patient to stay in hospital more than 2 midnights. Plan of care discussed with the patient 's at bedside in emergency room. Total time spent providing critical care to this patient in the emergency room, 35 minutes. Job ID: [id number] MTDD
[2018-04-20] MEDS ORDERED: Iopamidol 370 76% 100 ML VIAL ONE (16:16)
[2018-04-20] MEDS ORDERED: Acetaminophen 650 MG in Premix Bag 1 BAG IVPB PRN (16:58)
[2018-04-20] MEDS ORDERED: Pantoprazole 40 MG VIAL IVP SCH (17:30)
[2018-04-20] MEDS ORDERED: Enoxaparin Sodium 40 MG/0.4 ML SYRINGE SC SCH (17:30)
[2018-04-20 17:37] LABS: Troponin I 0.011 ng/mL (< 0.028)
[2018-04-20] MEDS: Arformoterol 15 MCG/2 ML NEB NEB SCH (18:42)
[2018-04-20] MEDS: Vancomycin HCl 1 GM in Premix Bag 1 BAG IVPB SCH (20:32)
[2018-04-21] MEDS: Piperacillin/Tazobactam 3.375 GM in Sodium Chloride 0.9% 100 ML IVPB SCH ×4 (03:58→21:49)
[2018-04-21] MEDS: fentaNYL Citrate/PF 2,000 MCG in Sodium Chloride 0.9% 60 ML IV SCH (05:12)
[2018-04-21 05:32] LABS: Anion Gap 10 mmol/L (10-20); BUN (Urea Nitrogen) 14 mg/dL (8.4-25.7); Calc. Creatinine Clearance 79 mL/min (70-130); Calcium 8.3 mg/dL (7.8-10.44); Carbon Dioxide 34 mmol/L (23-31); Chloride 99 mmol/L (98-107); Estimated GFR-MDRD Greater than 90; Glucose 172 mg/dL (83-110); Magnesium 1.8 mg/dL (1.6-2.6); Potassium 3.8 mmol/L (3.5-5.1); Sodium 139 mmol/L (136-145)
[2018-04-21 05:40] LABS: Band 29 % (5-11); Hemoglobin 11.1 g/dL (14.0-18.0); Lymphocytes 1 % (21-51); MDiff Complete? YES; Mean Corpuscular HGB CONC 31.1 g/dL (32.0-36.0); Mean Corpuscular Hemoglobin 30.5 pg (27.0-31.0); Mean Platelet Volume 7.4 fL (7.4-10.4); Monocytes 7 % (0-10); Neutrophil 63 % (42-75); PLT Morphology Comment Appears Adequate; Platelet Count 246 thou/uL (130-400); RBC Distribution Width 13.6 % (11.5-14.5); RBC Morphology Normal; Red Blood Cell (RBC) Count 3.65 mill/uL (4.70-6.10); White Blood Cell (WBC) Count 17.7 thou/uL (4.8-10.8)
[2018-04-21] MEDS: Arformoterol 15 MCG/2 ML NEB NEB SCH ×2 (06:44→18:25)
[2018-04-21 06:52] LABS: Actual Bicarbonate (HCO3a) 37.5 mEq/L (22-28); CO2 Tension 58.8 mmHg (35.0-45.0); Calcium, Ionized 1.15 mmol/L (1.12-1.30); Carboxyhemoglobin (COHb) 0.5 gm% (0.0-3.0); Hemoglobin (Hb) 11.8 g/dL (14.0-18.0); O2 Tension (PaO2) 106.3 mmHg (> 70.0); Potassium - ABG Lab 3.78 mmol/L (3.70-5.30); pH, Arterial 7.42 (7.35-7.45)
[2018-04-21 06:55] LABS: Puncture Site RRA
[2018-04-21 07:36] LABS: Phosphorus 2.5 mg/dL (2.3-4.7)
--- NOTE | 2018-04-21 08:15 | RAD ---
CHEST 1 VIEW: Date: 04/21/18 INDICATION: History of intubation. COMPARISON: Prior study dated 04/20/18. IMPRESSION: Tubes and lines appear unchanged. There is worsening air space opacity in the right lower lobe which may reflect subsegmental atelectasis or pneumonia. No pneumothorax is grossly evident. Positioning li mits the examination. POS: [facility]
[2018-04-21] MEDS: Sodium Chloride 0.9% 1,000 ML IV SCH ×2 (09:09→23:07)
[2018-04-21] MEDS: Vancomycin HCl 1 GM in Premix Bag 1 BAG IVPB SCH ×2 (09:22→20:19)
--- NOTE | 2018-04-21 09:22 | PRG ---
DATE OF SERVICE: 04/21/2018 TIME SPENT: 35 minutes of critical care time SUBJECTIVE: The patient remains intubated on mechanical ventilation. He is awake and alert, and follows commands. There have been no adverse events overnight. OBJECTIVE: VITAL SIGNS: His temperature is 99.0 with a T-max of 101.1, pulse is 91, blood pressure 94/52. He is currently on Levophed at 1 mcg/minute. His intake since admission has been 2133 mL, output 898. HEENT: Unremarkable. NECK: No JVD. LUNGS: Clear, but distant breath sounds. CARDIOVASCULAR: S1, S2 regular without audible murmur. ABDOMEN: Soft, nontender. EXTREMITIES: No clubbing, cyanosis, or edema. LABORATORY DATA: White blood cell count 17.7, hematocrit 35.7, platelet count 246. PH 7.42, pCO2 of 59, PO2 of 106, rate 16, tidal volume 450, PEEP 8, , FiO2 is 50%. Sodium 139, potassium 3.8, chloride 99, CO2 34, BUN 14, creatinine 0.6, glucose 172. ASSESSMENT: 1. Chronic obstructive pulmonary disease with exacerbation. 2. Chronic hypoxic and hypercapnic respiratory failure. 3. Hypotension. 4. Pneumonia. PLAN: I have adjusted the ventilator settings, increased the tube feeds, decreased his IV fluids. We will continue the IV antibiotics. He is not weanable at the current time, but I hope to proceed in that direction in the next day or so. I have adjusted this steroid dose downward. Job ID: [id number]
[2018-04-21] MEDS: Pantoprazole 40 MG VIAL IVP SCH (09:23)
[2018-04-21] MEDS: Enoxaparin Sodium 40 MG/0.4 ML SYRINGE SC SCH (09:23)
--- NOTE | 2018-04-21 09:43 | PDOC.PN ---
- Subjective Encounter Start Date: 04/21/18 Encounter Start Time: 09:20 -: old records requested/rev pt is intubated, he is awake on vent, still on levophed Patient seen and examined. No overnight events - Objective Resuscitation Status - Order Detail: 04/20/18 12:07 Resuscitation Status Routine Resuscitation Status: FULL: Full Resuscitation Discussed with: Dr. Tidwell discussed with pts . She wants one round of CPR MAR Reviewed: Yes Vital Signs & Weight: Vital Signs (12 hours) Pulse Resp Pulse Ox 04/21/18 06:45 82 04/21/18 06:00 16 04/21/18 04:00 16 04/21/18 02:12 87 16 99 04/21/18 02:00 16 04/21/18 00:00 16 04/20/18 22:04 83 04/20/18 22:03 91 16 100 04/20/18 22:00 16 Weight Weight 127 lb 10.362 oz Most Recent Monitor Data Heart Rate from ECG 91 NIBP 94/52 NIBP BP-Mean 66 Respiration from ECG 16 SpO2 99 I&O: 04/20/18 04/21/18 04/22/18 06:59 06:59 06:59 Intake Total 2133 Output Total 898 Balance 1235 Result Diagrams: 04/21/18 04:27 04/21/18 04:27 Additional Labs: Accuchecks 04/20/18 17:02 POC Glucose 159 H Radiology Reviewed by me: Yes (chest xray reviewed) EKG Reviewed by me: Yes (nsr) Phys Exam - Physical Examination Constitutional: NAD intubated HEENT: PERRLA, sclera anicteric Neck: no JVD, supple Respiratory: no wheezing, no rales, no rhonchi reduced air entry both side Cardiovascular: RRR, no significant murmur, no rub Gastrointestinal: soft, non-tender, no distention, positive bowel sounds Musculoskeletal: no edema, pulses present Neurological: moves all 4 limbs Lymphatic: no nodes Psychiatric: normal affect Skin: no rash, normal turgor Dx/Plan (1) Acute on chronic respiratory failure with hypoxia and hypercapnia Code(s): J96.21 - ACUTE AND CHRONIC RESPIRATORY FAILURE WITH HYPOXIA; J96.22 - ACUTE AND CHRONIC RESPIRATORY FAILURE WITH HYPERCAPNIA Status: Acute (2) COPD exacerbation Code(s): J44.1 - CHRONIC OBSTRUCTIVE PULMONARY DISEASE W (ACUTE) EXACERBATION Status: Acute (3) Pneumonia, aspiration Code(s): J69.0 - PNEUMONITIS DUE TO INHALATION OF FOOD AND VOMIT Status: Acute (4) Septic shock Code(s): A41.9 - SEPSIS, UNSPECIFIED ORGANISM; R65.21 - SEVERE SEPSIS WITH SEPTIC SHOCK Status: Acute (5) Anxiety and depression Code(s): F41.9 - ANXIETY DISORDER, UNSPECIFIED; F32.9 - MAJOR DEPRESSIVE DISORDER, SINGLE EPISODE, UNSPECIFIED Status: Chronic (6) Compression fracture of thoracic vertebra Code(s): S22.000A - WEDGE COMPRESSION FRACTURE OF UNSP THORACIC VERTEBRA, INIT Status: Chronic (7) End stage chronic obstructive pulmonary disease Code(s): J44.9 - CHRONIC OBSTRUCTIVE PULMONARY DISEASE, UNSPECIFIED Status: Chronic (8) Former smoker Status: Chronic (9) Physical deconditioning Code(s): R53.81 - OTHER MALAISE Status: Chronic Comment: - Plan cont current plan of care, continue antibiotics, respiratory therapy * continue current iv antibiotics vancomycin, zosyn, levaquin * continue solumedrol * continue respiratory therapy * vent as per pulmonary, not weanable. * follow culture * wean off levophed * medication reviewed as below * symptomatic treatment Review of Systems - Review of Systems Other: unable to review due to intubated status - Medications/Allergies Allergies/Adverse Reactions: Allergies Allergy/AdvReac Type Severity Reaction Status Date / Time No Known Allergies Allergy Verified 06/20/17 03:47 Medications: Current Medications Albuterol/Ipratropium (Duoneb) 3 ml NEB [id number] [facility] Last Admin: 04/21/18 06:44 Dose: 3 ml Arformoterol Tartrate (Brovana) 15 mcg NEB BID-RT [facility] Last Admin: 04/21/18 06:44 Dose: 15 mcg Enoxaparin Sodium (Lovenox) 40 mg SC 0900 [facility] Last Admin: 04/21/18 09:23 Dose: 40 mg Ascorbic Acid 1,500 mg/ Sodium (Chloride) 53 mls @ 100 mls/hr IVPB Q6HR [facility] Stop: 04/24/18 18:01 Last Admin: 04/21/18 05:39 Dose: 53 mls Levofloxacin 750 mg/ Device 150 mls @ 100 mls/hr IVPB 1330 [facility] Last Admin: 04/20/18 14:56 Dose: 150 mls Norepinephrine Bitartrate (Levophed) 250 mls @ 0 mls/hr IVPB INF [facility]; Protocol Thiamine HCl 200 mg/ Sodium (Chloride) 52 mls @ 100 mls/hr IVPB Q12HR [facility] Stop: 04/24/18 21:01 Last Admin: 04/21/18 09:22 Dose: 52 mls Vancomycin HCl 1 gm/ Device 200 mls @ 200 mls/hr IVPB Q12HR [facility] Last Admin: 04/21/18 09:22 Dose: 200 mls Potassium Chloride 40 meq/ (Sodium Chloride) 270 mls @ 135 mls/hr IVPB ASDIR PRN PRN Reason: FOR SERUM K+ 2.5 - 3.5 Potassium Chloride 40 meq/ (Device) 100 mls @ 50 mls/hr IVPB ASDIR PRN PRN Reason: FOR SERUM K+ 2.5 - 3.5 Magnesium Sulfate 1 gm/ Sodium (Chloride) 102 mls @ 102 mls/hr IV PRN PRN PRN Reason: MAG LEVEL 1.4 - 2.0 Magnesium Sulfate 2 gm/ Device 100 mls @ 100 mls/hr IVPB ASDIR PRN PRN Reason: MAGNESIUM < 1.4 Potassium Phosphate 9 mmol/ (Sodium Chloride) 103 mls @ 25.75 mls/hr IVPB ASDIR PRN PRN Reason: Phosphate 1.0-1.8 Potassium Phosphate 12 mmol/ (Sodium Chloride) 254 mls @ 63.5 mls/hr IV ASDIR PRN PRN Reason: Serum phosphate 0.5-0.9 Potassium Phosphate 15 mmol/ (Sodium Chloride) 255 mls @ 63.75 mls/hr IV ASDIR PRN PRN Reason: Serum Phos < 0.5 Fentanyl Citrate 2,000 mcg/ (Sodium Chloride) 100 mls @ 0 mls/hr IV INF [facility]; Protocol Stop: 05/20/18 13:05 Last Admin: 04/21/18 05:12 Dose: 100 mls Fentanyl Citrate (Fentanyl Bolus) 250 mls @ 0 mls/hr IVPB PRN PRN PRN Reason: Breakthrough pain/agitation Stop: 05/20/18 13:05 Piperacillin Sod/Tazobactam (Sod 3.375 gm/ Sodium Chloride) 100 mls @ 200 mls/ hr IVPB 0400,1000,1600,2200 [facility] Last Admin: 04/21/18 09:23 Dose: 100 mls Acetaminophen 650 mg/ Device 65 mls @ 260 mls/hr IVPB Q6H PRN PRN Reason: TEMP > 101 Stop: 04/21/18 16:59 Last Admin: 04/20/18 17:38 Dose: 65 mls Sodium Chloride (Normal Saline 0.9%) 1,000 mls @ 70 mls/hr IV .[id number] [facility] Last Admin: 04/21/18 09:09 Dose: Not Given Lorazepam (Ativan) 2 mg SLOW IVP Q1H PRN PRN Reason: Breakthrough agitation Stop: 05/20/18 13:05 Magnesium Oxide (Magnesium Oxide) 400 mg PO BIDPRN PRN PRN Reason: FOR SERUM MAG 1.4 - 2.0 Magnesium Oxide (Magnesium Oxide) 800 mg PO PRN PRN PRN Reason: FOR SERUM MAG < 1.4 Methylprednisolone Sodium Succinate (Solu-Medrol) 20 mg IVP 0300,0900,1500, 2100 [facility] Last Admin: 04/21/18 09:24 Dose: 20 mg Miscellaneous Medication (Phos-Nak) 1 pkt PO TIDPRN PRN PRN Reason: FOR PHOS LEVEL 1.0 - 1.8 Miscellaneous Medication (Phos-Nak) 2 pkt PO TIDPRN PRN PRN Reason: FOR PHOS LEVEL 0.5 - 1.0 Morphine Sulfate (Morphine) 2 mg SLOW IVP Q1H PRN PRN Reason: BREAKTHROUGH PAIN/Agitation Stop: 05/20/18 13:05 Ccu Electrolyte (Replacement Protocol) 0 each FS PRN PRN PRN Reason: FOR ELECTROLYTE REPLACEMENT Discontinue Previous Narcotic Pain Medications And Benzodiazepines 1 each FS .ONE [facility] Stop: 05/20/18 13:05 Pantoprazole Sodium (Protonix) 40 mg IVP DAILY [facility] Last Admin: 04/21/18 09:23 Dose: 40 mg Potassium Chloride (K-Dur) 40 meq PO ASDIR PRN PRN Reason: FOR SERUM K+ 2.5 - 3.5 Potassium Chloride (Klor-Con) 40 meq PER TUBE ASDIR PRN PRN Reason: FOR SERUM K+ 2.5-3.5 Propofol (Diprivan) 1,000 mg IV INF PRN; Protocol PRN Reason: TO ACHIEVE GOAL RASS Stop: 05/20/18 13:05 Propofol (Diprivan Bolus) 20 mg IV Q5MIN PRN PRN Reason: BREAKTHROUGH AGITATION Stop: 05/20/18 13:05
[2018-04-21] MEDS: Lorazepam 2 MG/ML VIAL SLOW IVP PRN (09:49)
[2018-04-22] MEDS: fentaNYL Citrate/PF 2,000 MCG in Sodium Chloride 0.9% 60 ML IV SCH ×2 (00:15→18:25)
[2018-04-22] MEDS: Acetaminophen 650 MG/20.3 ML UDCUP PO PRN ×3 (00:25→17:08)
[2018-04-22] MEDS: Piperacillin/Tazobactam 3.375 GM in Sodium Chloride 0.9% 100 ML IVPB SCH ×4 (03:00→21:04)
[2018-04-22 04:54] LABS: Anion Gap 10 mmol/L (10-20); BUN (Urea Nitrogen) 22 mg/dL (8.4-25.7); Calc. Creatinine Clearance 78 mL/min (70-130); Calcium 8.7 mg/dL (7.8-10.44); Carbon Dioxide 36 mmol/L (23-31); Chloride 102 mmol/L (98-107); Estimated GFR-MDRD Greater than 90; Glucose 158 mg/dL (83-110); Magnesium 2.1 mg/dL (1.6-2.6); Potassium 4.2 mmol/L (3.5-5.1); Sodium 144 mmol/L (136-145)
[2018-04-22 05:34] LABS: Band 13 % (5-11); Hemoglobin 10.9 g/dL (14.0-18.0); Hypochromia SLIGHT = 6-15 cells (100X) (0-5/hpf); Lymphocytes 2 % (21-51); MDiff Complete? YES; Macrocytosis SLIGHT = 6-15 cells (100X) (0-5/hpf); Mean Corpuscular HGB CONC 31.9 g/dL (32.0-36.0); Mean Corpuscular Hemoglobin 31.5 pg (27.0-31.0); Mean Corpuscular Volume 98.8 fL (78.0-98.0); Mean Platelet Volume 7.2 fL (7.4-10.4); Metamyelocyte 2 % (0-0); Monocytes 5 % (0-10); Myelocyte 2 % (0-0); Neutrophil 76 % (42-75); PLT Morphology Comment Appears Adequate; Platelet Count 292 thou/uL (130-400); RBC Distribution Width 13.7 % (11.5-14.5); Red Blood Cell (RBC) Count 3.46 mill/uL (4.70-6.10); White Blood Cell (WBC) Count 19.3 thou/uL (4.8-10.8)
[2018-04-22 07:22] LABS: Actual Bicarbonate (HCO3a) 38.3 mEq/L (22-28); Calcium, Ionized 1.17 mmol/L (1.12-1.30); Carboxyhemoglobin (COHb) 0.5 gm% (0.0-3.0); Hemoglobin (Hb) 10.8 g/dL (14.0-18.0); O2 Tension (PaO2) 75.5 mmHg (> 70.0); Potassium - ABG Lab 4.07 mmol/L (3.70-5.30); pH, Arterial 7.38 (7.35-7.45)
[2018-04-22 07:24] LABS: ALV-art Gradient 126.325 (0-20); CO2 Tension 66.7 mmHg (35.0-45.0); Puncture Site RRA
[2018-04-22] MEDS: Enoxaparin Sodium 40 MG/0.4 ML SYRINGE SC SCH (07:36)
[2018-04-22] MEDS: Vancomycin HCl 1 GM in Premix Bag 1 BAG IVPB SCH (07:37)
[2018-04-22] MEDS: Pantoprazole 40 MG VIAL IVP SCH (07:37)
[2018-04-22] MEDS ORDERED: Sodium Phosphate 60 MEQ/15 ML VIAL IV SCH (07:45)
[2018-04-22] MEDS: Arformoterol 15 MCG/2 ML NEB NEB SCH ×2 (07:46→18:24)
[2018-04-22] MEDS ORDERED: Sodium Phosphate 30 MEQ in Sodium Chloride 0.9% 250 ML 250 ML IVPB SCH (08:30)
--- NOTE | 2018-04-22 09:28 | RAD ---
CHEST ONE VIEW: INDICATIONS: History of intubation. COMPARISON: 04/21/2018 FINDINGS: There is stable elevation of the right hemidiaphragm. The patient is intubated with gastric catheter placement. Mild left basilar atelectasis persists. No pneumothorax is evident. Osseous structures are unchanged from comparison dated 04/21/2018. There is improved aeration of the right lower lobe, likely related to prior atelectasis, seen on the comparison examination. POS: [facility]
--- NOTE | 2018-04-22 09:37 | PDOC.PN ---
- Subjective Encounter Start Date: 04/22/18 Encounter Start Time: 08:40 pt is on ventilator, awake on vent, Patient seen and examined. No overnight events - Objective Resuscitation Status - Order Detail: 04/20/18 12:07 Resuscitation Status Routine Resuscitation Status: FULL: Full Resuscitation Discussed with: Dr. Tidwell discussed with pts . She wants one round of CPR MAR Reviewed: Yes Vital Signs & Weight: Vital Signs (12 hours) Temp Pulse Resp 04/22/18 07:46 93 04/22/18 06:00 14 04/22/18 04:00 101.0 F H 14 04/22/18 02:55 110 H 04/22/18 02:00 13 04/22/18 00:00 100.3 F H 14 04/21/18 22:32 104 H 04/21/18 22:00 14 Weight Admit Weight 127 lb 10.362 oz Weight 128 lb 15.527 oz Most Recent Monitor Data Heart Rate from ECG 94 NIBP 113/56 NIBP BP-Mean 75 Respiration from ECG 10 SpO2 98 I&O: 04/21/18 04/22/18 04/23/18 06:59 06:59 06:59 Intake Total 2133 3603.9 Output Total 898 905 Balance 1235 2698.9 Result Diagrams: 04/22/18 04:18 04/22/18 04:18 Radiology Reviewed by me: Yes (chest xray reviwed) EKG Reviewed by me: Yes (nsr) Phys Exam - Physical Examination Constitutional: NAD intubated, awake HEENT: PERRLA, sclera anicteric Neck: no JVD, supple Respiratory: no wheezing, no rales, no rhonchi reduced air entry anteriorly Cardiovascular: RRR, no significant murmur, no rub Gastrointestinal: soft, no distention, positive bowel sounds Musculoskeletal: no edema, pulses present Lymphatic: no nodes Skin: no rash, normal turgor Dx/Plan (1) Acute on chronic respiratory failure with hypoxia and hypercapnia Code(s): J96.21 - ACUTE AND CHRONIC RESPIRATORY FAILURE WITH HYPOXIA; J96.22 - ACUTE AND CHRONIC RESPIRATORY FAILURE WITH HYPERCAPNIA Status: Acute (2) COPD exacerbation Code(s): J44.1 - CHRONIC OBSTRUCTIVE PULMONARY DISEASE W (ACUTE) EXACERBATION Status: Acute (3) Pneumonia, aspiration Code(s): J69.0 - PNEUMONITIS DUE TO INHALATION OF FOOD AND VOMIT Status: Acute (4) Septic shock Code(s): A41.9 - SEPSIS, UNSPECIFIED ORGANISM; R65.21 - SEVERE SEPSIS WITH SEPTIC SHOCK Status: Acute (5) Anxiety and depression Code(s): F41.9 - ANXIETY DISORDER, UNSPECIFIED; F32.9 - MAJOR DEPRESSIVE DISORDER, SINGLE EPISODE, UNSPECIFIED Status: Chronic (6) Compression fracture of thoracic vertebra Code(s): S22.000A - WEDGE COMPRESSION FRACTURE OF UNSP THORACIC VERTEBRA, INIT Status: Chronic (7) End stage chronic obstructive pulmonary disease Code(s): J44.9 - CHRONIC OBSTRUCTIVE PULMONARY DISEASE, UNSPECIFIED Status: Chronic (8) Former smoker Status: Chronic (9) Physical deconditioning Code(s): R53.81 - OTHER MALAISE Status: Chronic Comment: - Plan cont current plan of care, continue antibiotics, respiratory therapy * continue current IV antibiotics, vancomycin, zosyn, levaquin * continue current optimum COPD treatment. duoneb, solumedrol, antibiotics * ventilator as per pulmonary * medication reviewed as below * symptomatic treatment Review of Systems - Review of Systems Other: not reliable due to intubated status - Medications/Allergies Allergies/Adverse Reactions: Allergies Allergy/AdvReac Type Severity Reaction Status Date / Time No Known Allergies Allergy Verified 06/20/17 03:47 Medications: Current Medications Acetaminophen (Tylenol Elixir) 650 mg PO Q6H PRN PRN Reason: Headache/Fever or Pain Last Admin: 04/22/18 00:25 Dose: 650 mg Albuterol/Ipratropium (Duoneb) 3 ml NEB [id number] MK Last Admin: 04/22/18 07:45 Dose: 3 ml Arformoterol Tartrate (Brovana) 15 mcg NEB BID-RT MK Last Admin: 04/22/18 07:46 Dose: 15 mcg Enoxaparin Sodium (Lovenox) 40 mg SC 0900 [facility] Last Admin: 04/22/18 07:36 Dose: 40 mg Ascorbic Acid 1,500 mg/ Sodium (Chloride) 53 mls @ 100 mls/hr IVPB Q6HR MK Stop: 04/24/18 18:01 Last Admin: 04/22/18 05:21 Dose: 53 mls Levofloxacin 750 mg/ Device 150 mls @ 100 mls/hr IVPB 1330 MK Last Admin: 04/21/18 13:43 Dose: 150 mls Norepinephrine Bitartrate (Levophed) 250 mls @ 0 mls/hr IVPB INF MK; Protocol Last Admin: 04/22/18 05:22 Dose: 250 mls Thiamine HCl 200 mg/ Sodium (Chloride) 52 mls @ 100 mls/hr IVPB Q12HR MK Stop: 04/24/18 21:01 Last Admin: 04/22/18 07:37 Dose: 52 mls Potassium Chloride 40 meq/ (Sodium Chloride) 270 mls @ 135 mls/hr IVPB ASDIR PRN PRN Reason: FOR SERUM K+ 2.5 - 3.5 Potassium Chloride 40 meq/ (Device) 100 mls @ 50 mls/hr IVPB ASDIR PRN PRN Reason: FOR SERUM K+ 2.5 - 3.5 Magnesium Sulfate 1 gm/ Sodium (Chloride) 102 mls @ 102 mls/hr IV PRN PRN PRN Reason: MAG LEVEL 1.4 - 2.0 Last Admin: 04/21/18 12:16 Dose: 102 mls Magnesium Sulfate 2 gm/ Device 100 mls @ 100 mls/hr IVPB ASDIR PRN PRN Reason: MAGNESIUM < 1.4 Potassium Phosphate 9 mmol/ (Sodium Chloride) 103 mls @ 25.75 mls/hr IVPB ASDIR PRN PRN Reason: Phosphate 1.0-1.8 Potassium Phosphate 12 mmol/ (Sodium Chloride) 254 mls @ 63.5 mls/hr IV ASDIR PRN PRN Reason: Serum phosphate 0.5-0.9 Potassium Phosphate 15 mmol/ (Sodium Chloride) 255 mls @ 63.75 mls/hr IV ASDIR PRN PRN Reason: Serum Phos < 0.5 Fentanyl Citrate 2,000 mcg/ (Sodium Chloride) 100 mls @ 0 mls/hr IV INF MK; Protocol Stop: 05/20/18 13:05 Last Admin: 04/22/18 00:15 Dose: 100 mls Fentanyl Citrate (Fentanyl Bolus) 250 mls @ 0 mls/hr IVPB PRN PRN PRN Reason: Breakthrough pain/agitation Stop: 05/20/18 13:05 Piperacillin Sod/Tazobactam (Sod 3.375 gm/ Sodium Chloride) 100 mls @ 200 mls/ hr IVPB 0400,1000,1600,2200 [facility] Last Admin: 04/22/18 03:00 Dose: 100 mls Sodium Chloride (1/2 Normal Saline) 1,000 mls @ 75 mls/hr IV .[id number] [facility] Sodium Phosphate 30 meq/ (Sodium Chloride) 257.5 mls @ 42.917 mls/hr IVPB 0830 [facility] Stop: 04/22/18 14:29 Last Admin: 04/22/18 08:03 Dose: 257.5 mls Lorazepam (Ativan) 2 mg SLOW IVP Q1H PRN PRN Reason: Breakthrough agitation Stop: 05/20/18 13:05 Last Admin: 04/21/18 09:49 Dose: 2 mg Magnesium Oxide (Magnesium Oxide) 400 mg PO BIDPRN PRN PRN Reason: FOR SERUM MAG 1.4 - 2.0 Magnesium Oxide (Magnesium Oxide) 800 mg PO PRN PRN PRN Reason: FOR SERUM MAG < 1.4 Methylprednisolone Sodium Succinate (Solu-Medrol) 20 mg IVP 0300,0900,1500, 2100 [facility] Last Admin: 04/22/18 07:36 Dose: 20 mg Miscellaneous Medication (Phos-Nak) 1 pkt PO TIDPRN PRN PRN Reason: FOR PHOS LEVEL 1.0 - 1.8 Miscellaneous Medication (Phos-Nak) 2 pkt PO TIDPRN PRN PRN Reason: FOR PHOS LEVEL 0.5 - 1.0 Morphine Sulfate (Morphine) 2 mg SLOW IVP Q1H PRN PRN Reason: BREAKTHROUGH PAIN/Agitation Stop: 05/20/18 13:05 Ccu Electrolyte (Replacement Protocol) 0 each FS PRN PRN PRN Reason: FOR ELECTROLYTE REPLACEMENT Discontinue Previous Narcotic Pain Medications And Benzodiazepines 1 each FS .ONE [facility] Stop: 05/20/18 13:05 Pantoprazole Sodium (Protonix) 40 mg IVP DAILY [facility] Last Admin: 04/22/18 07:37 Dose: 40 mg Potassium Chloride (K-Dur) 40 meq PO ASDIR PRN PRN Reason: FOR SERUM K+ 2.5 - 3.5 Potassium Chloride (Klor-Con) 40 meq PER TUBE ASDIR PRN PRN Reason: FOR SERUM K+ 2.5-3.5 Propofol (Diprivan) 1,000 mg IV INF PRN; Protocol PRN Reason: TO ACHIEVE GOAL RASS Stop: 05/20/18 13:05 Propofol (Diprivan Bolus) 20 mg IV Q5MIN PRN PRN Reason: BREAKTHROUGH AGITATION Stop: 05/20/18 13:05
[2018-04-22] MEDS: Lorazepam 2 MG/ML VIAL SLOW IVP PRN ×2 (10:43→17:15)
[2018-04-22] MEDS: Sodium Chloride 0.45% 1,000 ML IV SCH ×2 (14:38→21:08)
[2018-04-23] MEDS: Lorazepam 2 MG/ML VIAL SLOW IVP PRN (00:06)
[2018-04-23] MEDS: Piperacillin/Tazobactam 3.375 GM in Sodium Chloride 0.9% 100 ML IVPB SCH ×4 (03:51→21:42)
[2018-04-23 04:32] LABS: #Eosinphils 0.1 thou/uL (0.0-0.7); #Lymphocytes 0.3 thou/uL (1.20-3.40); #Monocytes 0.5 thou/uL (0.11-0.59); #Neutrophils 15.7 thou/uL (1.40-6.50); %Eosinophils 0.3 % (0.0-10.0); %Lymphocytes 1.7 % (21.0-51.0); Hemoglobin 10.7 g/dL (14.0-18.0); Mean Corpuscular HGB CONC 32.3 g/dL (32.0-36.0); Mean Corpuscular Hemoglobin 32.1 pg (27.0-31.0); Mean Corpuscular Volume 99.3 fL (78.0-98.0); Mean Platelet Volume 6.9 fL (7.4-10.4); Platelet Count 275 thou/uL (130-400); RBC Distribution Width 13.6 % (11.5-14.5); Red Blood Cell (RBC) Count 3.34 mill/uL (4.70-6.10); White Blood Cell (WBC) Count 16.6 thou/uL (4.8-10.8)
[2018-04-23 04:44] LABS: BUN (Urea Nitrogen) 22 mg/dL (8.4-25.7); Calc. Creatinine Clearance 92 mL/min (70-130); Calcium 8.6 mg/dL (7.8-10.44); Estimated GFR-MDRD Greater than 90; Glucose 154 mg/dL (83-110); Magnesium 2.1 mg/dL (1.6-2.6)
[2018-04-23 04:45] LABS: Phosphorus 2.5 mg/dL (2.3-4.7)
[2018-04-23 04:53] LABS: Anion Gap 12 mmol/L (10-20); Carbon Dioxide 34 mmol/L (23-31); Chloride 103 mmol/L (98-107); Potassium 4.1 mmol/L (3.5-5.1); Sodium 145 mmol/L (136-145)
[2018-04-23 06:37] LABS: Actual Bicarbonate (HCO3a) 41.3 mEq/L (22-28); Base Excess (BEa) 13.5 mEq/L (-2.0 to +3.0); Calcium, Ionized 1.15 mmol/L (1.12-1.30); Carboxyhemoglobin (COHb) 0.3 gm% (0.0-3.0); Hemoglobin (Hb) 11.5 g/dL (14.0-18.0); O2 Tension (PaO2) 76.1 mmHg (> 70.0); Potassium - ABG Lab 4.06 mmol/L (3.70-5.30); pH, Arterial 7.38 (7.35-7.45)
[2018-04-23 06:40] LABS: CO2 Tension 71.1 mmHg (35.0-45.0)
[2018-04-23 06:41] LABS: ALV-art Gradient 120.225 (0-20); Puncture Site RR
[2018-04-23] MEDS: Arformoterol 15 MCG/2 ML NEB NEB SCH ×2 (07:20→18:27)
--- NOTE | 2018-04-23 07:48 | CON ---
DATE OF CONSULTATION: 04/20/2018 CONSULTING PHYSICIAN: [facility]. REASON FOR CONSULTATION: Acute respiratory failure. This encompassed 45 minutes of critical care time. HISTORY OF PRESENT ILLNESS: Mr. Montelongo is a 72-year-old male who presented to the emergency room with a 3-day history of increasing shortness of breath and sputum production. His says he has been doing poorly since about Day. On that day, he took a fall and sustained bruising in his right upper arm and also a black eye on the left. He has been coughing up purulent sputum. He has had a fever up to 100.5. He actually made an appointment to see me in the office yesterday, but refused to come because he felt so bad. PAST MEDICAL HISTORY: 1. Severe end-stage chronic obstructive pulmonary disease. 2. He has had multiple intubations in the past as well as multiple hospitalizations on noninvasive ventilation. At one point, he was on hospice, but revoked that. He is currently using a Trilogy ventilator at home, and is on continuous oxygen as well as daily steroids. 3. Gastroesophageal reflux. 4. Anxiety. PAST SURGICAL HISTORY: 1. Cataract surgery. 2. Left knee surgery. ALLERGIES: NONE. MEDICATIONS: Prior to admission, he was on prednisone 10 mg twice a day, Brovana nebulization treatments twice daily, budesonide twice daily. I do not have the list of his other medications at this time. SOCIAL HISTORY: He formerly smoked quite heavily, has not done so in quite some time. Does not consume alcohol. REVIEW OF SYSTEMS: Cannot be obtained as he is currently intubated in mechanical ventilation. PHYSICAL EXAMINATION: VITAL SIGNS: His pulse is running around 100, blood pressure 86/51, currently on a Levophed drip through a right femoral central line. GENERAL: He is intubated and sedated. HEENT: His pupils are both reactive. He has ecchymosis over his left eyelid and below his left eye. His nares demonstrate mucoid secretions. His mouth has endotracheal tube and orogastric tube present. NECK: No adenopathy, JVD, or bruits. LUNGS: He has poor air movement bilaterally. He has a few crackles on both bases. CARDIOVASCULAR: S1, S2. Slightly tachycardic. There is no audible murmur. ABDOMEN: Soft, nontender. Liver is felt just below the right costal margin. Spleen is not palpable. EXTREMITIES: He has ecchymosis of his right upper extremity. He has 1+ clubbing. No edema. LABORATORY DATA: White blood cell count is 14.3, hematocrit 43.2, platelet count 296 with 51% neutrophils, 38% bands. Sodium 139, potassium 4.2, chloride 93, CO2 of 32, BUN 17, creatinine 0.7, glucose 168. Lactate is 2.3. Troponin less than 0.01. BNP is 127. Albumin 3.3. Blood gas; pH 7.36, pCO2 of 62, PO2 of 45 16, tidal volume 450, PEEP 5, FiO2 of 40%. I suspect that this could be a venous gas. His urinalysis demonstrates proteinuria. No significant white blood cells. His x-ray shows slight elevation of his hemidiaphragm. CT of the chest demonstrates bibasilar infiltrates, right greater than left. ASSESSMENT: 1. Acute respiratory failure, requiring mechanical ventilation. 2. Severe end-stage chronic obstructive pulmonary disease with chronic hypoxic and hypercapnic respiratory failure. 3. Bilateral pneumonia. 4. Severe debilitation. RECOMMENDATIONS: 1. It is quite unfortunate that he is intubated. I have had multiple conversations with the patient and his in the past concerning code status as it is clear that he is at the end of his life. Unfortunately, I have never been able to get either them to budge on this since he was taken off hospice over a year ago. His wishes are to undergo mechanical ventilation. Should he have a cardiac arrest, he wants one attempt at resuscitation. Past that, I think that he and his both have been understanding that he is close to the end. 2. He will be treated with mechanical ventilation. IV antibiotics. IV corticosteroids and nebulization treatments. 3. GI prophylaxis with Protonix. 4. DVT prophylaxis with enoxaparin. 5. The patient's prognosis is quite poor. I spent a significant amount of time with the patient's going over the details of the case and she understands on this. Job ID: [id number]
--- NOTE | 2018-04-23 07:48 | PRG ---
DATE OF SERVICE: 04/22/2018 This is 35 minutes of critical care time. SUBJECTIVE: This patient remains intubated on mechanical ventilation. He will wake up and follow commands. OBJECTIVE: VITAL SIGNS: On exam, his temperature is 101.7, pulse 94, blood pressure 113/56. A 24-hour intake 3603, output 905. HEENT: Unremarkable. NECK: No adenopathy or JVD. LUNGS: He has coarse breath sounds bilaterally without audible wheezing. CARDIAC: S1 and S2 regular without murmur. ABDOMEN: Soft, nontender. EXTREMITIES: Trace edema throughout. IMAGING STUDIES: His chest x-ray demonstrates elevated right hemidiaphragm compared to left, that is not a new finding. His ET tube is in good position. LABORATORY DATA: Sodium 144, potassium 4.2, chloride 102, CO2 36, BUN 22, creatinine 0.6, glucose 158, phosphorus 2.0, magnesium 2.1. PH 7.38, pCO2 of 66, pO2 of 75. White blood cell count 19.3, hematocrit 34.2, platelet count 292. His cultures are growing out gram-positive rods from his central line at the time of admission, that is likely contaminant. ASSESSMENT: 1. Acute respiratory failure. 2. Chronic hypoxic and hypercapnic respiratory failure. 3. Chronic obstructive pulmonary disease with exacerbation. 4. Pneumonia. 5. Hypotension. 6. Sepsis syndrome. PLAN: 1. I have replaced his phosphate. 2. Change IV fluids to half-normal saline. 3. Stop vancomycin, but continue Levaquin and Zosyn. 4. Continue IV steroids. 5. Continue enteral tube feeds. 6. In my opinion, he is not weanable at the current time. I think weaning him mechanical ventilation may be extremely difficult given his underlying illness. Job ID: [id number]
--- NOTE | 2018-04-23 07:52 | PRG ---
DATE OF SERVICE: 04/23/2018 TIME SPENT: 35 minutes of critical care time. SUBJECTIVE: The patient remains intubated on mechanical ventilation. He will wake up and nod to conversation. OBJECTIVE: VITAL SIGNS: On exam, his temperature is 98.8, pulse 84, blood pressure 133/57, and O2 saturation 99%. He is currently on a Levophed drip at 2 mcg/minute. He is also on fentanyl for sedation. A 24-hour intake 4535 and output 1220. HEENT: Unremarkable. NECK: No JVD. LUNGS: Distant breath sounds. CARDIAC: S1 and S2, regular. ABDOMEN: Soft. EXTREMITIES: Edematous. LABORATORY DATA: Chest x-ray shows diaphragmatic blurring on the left base. He has right hemidiaphragm elevation. ET tube is in good position. OG tube is in good position. White blood cell count 16.6, hematocrit 33.2, and platelet count 275. pH 7.38, pCO2 of 71, PO2 of 76, on SIMV rate of 12, tidal volume 450, PEEP 8, pressure support 10, and FiO2 of 40%. Sodium 145, potassium 4.1, chloride 103, CO2 of 34, BUN 22, creatinine 0.5, and glucose 154. ASSESSMENT: 1. Chronic hypoxic and hypercapnic respiratory failure. 2. Acute respiratory failure, requiring mechanical ventilation. 3. Left lower lobe pneumonia. 4. Severe debilitation. PLAN: 1. Hold sedation and try spontaneous breathing trial and further assess if he can be extubated. 2. Continue antibiotics, steroids, and nebulization treatment. 3. Wean off Levophed as tolerated. Job ID: [id number]
[2018-04-23] MEDS: Enoxaparin Sodium 40 MG/0.4 ML SYRINGE SC SCH (08:18)
[2018-04-23] MEDS: Pantoprazole 40 MG VIAL IVP SCH (08:18)
--- NOTE | 2018-04-23 09:07 | RAD ---
PORTABLE SEMIUPRIGHT FRONTAL CHEST RADIOGRAPH: DATE: 04/23/2018. COMPARISON: 04/22/2018. HISTORY: Ventilated patient. FINDINGS: Endotracheal tube and nasogastric tube are in proper position. NO pneumothorax noted. Hazy nonspecific increased linear density noted in the left lung base with increased density in the l eft cardiophrenic angle. There is elevation of the right hemidiaphragm limiting assessment of the ri ght lung base. Stable posteromedial right-sided rib fractures. Dense opacity in the right cardiophr enic angle noted, nonspecific and stable. IMPRESSION: No interval change. POS: [facility]
--- NOTE | 2018-04-23 10:51 | PDOC.PN ---
- Subjective Encounter Start Date: 04/23/18 Encounter Start Time: 07:40 pt is extubated this morning, still short of breath, very weak, has tachycardia , bedside Patient seen and examined. No overnight events - Objective Resuscitation Status - Order Detail: 04/20/18 12:07 Resuscitation Status Routine Resuscitation Status: FULL: Full Resuscitation Discussed with: Dr. Tidwell discussed with pts . She wants one round of CPR MAR Reviewed: Yes Vital Signs & Weight: Vital Signs (12 hours) Pulse Resp BP Pulse Ox 04/23/18 08:47 17 93 L 04/23/18 08:45 107 H 121/101 H 04/23/18 07:21 82 139/61 04/23/18 06:00 12 04/23/18 04:00 12 04/23/18 02:04 85 04/23/18 02:03 85 14 100 04/23/18 02:00 14 04/23/18 00:00 12 Weight Admit Weight 127 lb 10.362 oz Weight 132 lb 15.02 oz Most Recent Monitor Data Heart Rate from ECG 103 NIBP 137/70 NIBP BP-Mean 92 Respiration from ECG 16 SpO2 93 I&O: 04/22/18 04/23/18 04/24/18 06:59 06:59 06:59 Intake Total 3668.9 4535.2 Output Total 905 1220 50 Balance 2763.9 3315.2 -50 Result Diagrams: 04/23/18 04:04 04/23/18 04:04 Radiology Reviewed by me: Yes (chest xray reviewed) EKG Reviewed by me: Yes (sinus tachycardia) Phys Exam - Physical Examination Constitutional: NAD HEENT: PERRLA, moist MMs, sclera anicteric Neck: no JVD, supple reduced air entry both side Cardiovascular: RRR, no significant murmur, no rub tachycardia Gastrointestinal: soft, non-tender, no distention Musculoskeletal: no edema, pulses present Neurological: non-focal, normal sensation, moves all 4 limbs Lymphatic: no nodes Psychiatric: normal affect Skin: no rash, normal turgor Dx/Plan (1) Acute on chronic respiratory failure with hypoxia and hypercapnia Code(s): J96.21 - ACUTE AND CHRONIC RESPIRATORY FAILURE WITH HYPOXIA; J96.22 - ACUTE AND CHRONIC RESPIRATORY FAILURE WITH HYPERCAPNIA Status: Acute (2) COPD exacerbation Code(s): J44.1 - CHRONIC OBSTRUCTIVE PULMONARY DISEASE W (ACUTE) EXACERBATION Status: Acute (3) Pneumonia, aspiration Code(s): J69.0 - PNEUMONITIS DUE TO INHALATION OF FOOD AND VOMIT Status: Acute (4) Septic shock Code(s): A41.9 - SEPSIS, UNSPECIFIED ORGANISM; R65.21 - SEVERE SEPSIS WITH SEPTIC SHOCK Status: Acute (5) Anxiety and depression Code(s): F41.9 - ANXIETY DISORDER, UNSPECIFIED; F32.9 - MAJOR DEPRESSIVE DISORDER, SINGLE EPISODE, UNSPECIFIED Status: Chronic (6) Compression fracture of thoracic vertebra Code(s): S22.000A - WEDGE COMPRESSION FRACTURE OF UNSP THORACIC VERTEBRA, INIT Status: Chronic (7) End stage chronic obstructive pulmonary disease Code(s): J44.9 - CHRONIC OBSTRUCTIVE PULMONARY DISEASE, UNSPECIFIED Status: Chronic (8) Former smoker Status: Chronic (9) Physical deconditioning Code(s): R53.81 - OTHER MALAISE Status: Chronic Comment: - Plan cont current plan of care, plan discussed w/ family, continue antibiotics, respiratory therapy * medication reviewed as below * symptomatic treatment * continue vancomycin, zosyn, levaquin. 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 negative: fever, chills, sweats, other Respiratory: Cough, Shortness of Breath, Sputum. negative: Dry, Hemoptysis, SOB with Excertion, Pleuritic Pain, Wheezing Cardiovascular: negative: chest pain, palpitations, orthopnea, paroxysmal nocturnal dyspnea, edema, light headedness, other Gastrointestinal: negative: Nausea, Vomiting, Abdominal Pain, Diarrhea, Constipation, Melena, Hematochezia, Other Genitourinary: negative: Dysuria, Frequency, Incontinence, Hematuria, Retention , Other Musculoskeletal: negative: Neck Pain, Shoulder Pain, Arm Pain, Back Pain, Hand Pain, Leg Pain, Foot Pain, Other Skin: negative: Rash, Lesions, Alonso, Bruising, Other - Medications/Allergies Allergies/Adverse Reactions: Allergies Allergy/AdvReac Type Severity Reaction Status Date / Time No Known Allergies Allergy Verified 06/20/17 03:47 Medications: Current Medications Acetaminophen (Tylenol Elixir) 650 mg PO Q6H PRN PRN Reason: Headache/Fever or Pain Last Admin: 04/22/18 17:08 Dose: 650 mg Albuterol/Ipratropium (Duoneb) 3 ml NEB [id number] [facility] Last Admin: 04/23/18 07:20 Dose: 3 ml Arformoterol Tartrate (Brovana) 15 mcg NEB BID-RT [facility] Last Admin: 04/23/18 07:20 Dose: 15 mcg Enoxaparin Sodium (Lovenox) 40 mg SC 0900 MK Last Admin: 04/23/18 08:18 Dose: 40 mg Ascorbic Acid 1,500 mg/ Sodium (Chloride) 53 mls @ 100 mls/hr IVPB Q6HR [facility] Stop: 04/24/18 18:01 Last Admin: 04/23/18 05:40 Dose: 53 mls Levofloxacin 750 mg/ Device 150 mls @ 100 mls/hr IVPB 1330 MK Last Admin: 04/22/18 14:37 Dose: 150 mls Norepinephrine Bitartrate (Levophed) 250 mls @ 0 mls/hr IVPB INF MK; Protocol Last Admin: 04/22/18 05:22 Dose: 250 mls Thiamine HCl 200 mg/ Sodium (Chloride) 52 mls @ 100 mls/hr IVPB Q12HR [facility] Stop: 04/24/18 21:01 Last Admin: 04/23/18 09:22 Dose: 52 mls Potassium Chloride 40 meq/ (Sodium Chloride) 270 mls @ 135 mls/hr IVPB ASDIR PRN PRN Reason: FOR SERUM K+ 2.5 - 3.5 Potassium Chloride 40 meq/ (Device) 100 mls @ 50 mls/hr IVPB ASDIR PRN PRN Reason: FOR SERUM K+ 2.5 - 3.5 Magnesium Sulfate 1 gm/ Sodium (Chloride) 102 mls @ 102 mls/hr IV PRN PRN PRN Reason: MAG LEVEL 1.4 - 2.0 Last Admin: 04/21/18 12:16 Dose: 102 mls Magnesium Sulfate 2 gm/ Device 100 mls @ 100 mls/hr IVPB ASDIR PRN PRN Reason: MAGNESIUM < 1.4 Potassium Phosphate 9 mmol/ (Sodium Chloride) 103 mls @ 25.75 mls/hr IVPB ASDIR PRN PRN Reason: Phosphate 1.0-1.8 Potassium Phosphate 12 mmol/ (Sodium Chloride) 254 mls @ 63.5 mls/hr IV ASDIR PRN PRN Reason: Serum phosphate 0.5-0.9 Potassium Phosphate 15 mmol/ (Sodium Chloride) 255 mls @ 63.75 mls/hr IV ASDIR PRN PRN Reason: Serum Phos < 0.5 Piperacillin Sod/Tazobactam (Sod 3.375 gm/ Sodium Chloride) 100 mls @ 200 mls/ hr IVPB 0400,1000,1600,2200 [facility] Last Admin: 04/23/18 09:22 Dose: 100 mls Sodium Chloride (1/2 Normal Saline) 1,000 mls @ 75 mls/hr IV .[id number] [facility] Last Admin: 04/22/18 21:08 Dose: 1,000 mls Magnesium Oxide (Magnesium Oxide) 400 mg PO BIDPRN PRN PRN Reason: FOR SERUM MAG 1.4 - 2.0 Magnesium Oxide (Magnesium Oxide) 800 mg PO PRN PRN PRN Reason: FOR SERUM MAG < 1.4 Methylprednisolone Sodium Succinate (Solu-Medrol) 20 mg IVP 0300,0900,1500, 2100 [facility] Last Admin: 04/23/18 08:18 Dose: 20 mg Miscellaneous Medication (Phos-Nak) 1 pkt PO TIDPRN PRN PRN Reason: FOR PHOS LEVEL 1.0 - 1.8 Miscellaneous Medication (Phos-Nak) 2 pkt PO TIDPRN PRN PRN Reason: FOR PHOS LEVEL 0.5 - 1.0 Ccu Electrolyte (Replacement Protocol) 0 each FS PRN PRN PRN Reason: FOR ELECTROLYTE REPLACEMENT Pantoprazole Sodium (Protonix) 40 mg IVP DAILY [facility] Last Admin: 04/23/18 08:18 Dose: 40 mg Potassium Chloride (K-Dur) 40 meq PO ASDIR PRN PRN Reason: FOR SERUM K+ 2.5 - 3.5 Potassium Chloride (Klor-Con) 40 meq PER TUBE ASDIR PRN PRN Reason: FOR SERUM K+ 2.5-3.5
[2018-04-23] MEDS: Sodium Chloride 0.45% 1,000 ML IV SCH (11:35)
[2018-04-23] MEDS: Cepastat Lozenges 1 LOZ PO PRN (20:34)
[2018-04-23] MEDS: Acetaminophen 650 MG/20.3 ML UDCUP PO PRN (21:43)
[2018-04-24] MEDS: Sodium Chloride 0.45% 1,000 ML IV SCH (02:02)
[2018-04-24] MEDS: Piperacillin/Tazobactam 3.375 GM in Sodium Chloride 0.9% 100 ML IVPB SCH ×4 (03:51→21:03)
[2018-04-24 05:22] LABS: BUN (Urea Nitrogen) 20 mg/dL (8.4-25.7); Calc. Creatinine Clearance 119 mL/min (70-130); Calcium 8.9 mg/dL (7.8-10.44); Estimated GFR-MDRD Greater than 90; Glucose 119 mg/dL (83-110); Magnesium 2.1 mg/dL (1.6-2.6); Phosphorus 2.6 mg/dL (2.3-4.7)
[2018-04-24 05:31] LABS: Anion Gap 11 mmol/L (10-20); Carbon Dioxide 34 mmol/L (23-31); Chloride 100 mmol/L (98-107); Sodium 141 mmol/L (136-145)
[2018-04-24 05:51] LABS: Band 4 % (5-11); Hemoglobin 11.4 g/dL (14.0-18.0); Hypochromia SLIGHT = 6-15 cells (100X) (0-5/hpf); Lymphocytes 6 % (21-51); MDiff Complete? YES; Mean Corpuscular HGB CONC 32.3 g/dL (32.0-36.0); Mean Corpuscular Hemoglobin 31.6 pg (27.0-31.0); Mean Corpuscular Volume 97.8 fL (78.0-98.0); Mean Platelet Volume 6.7 fL (7.4-10.4); Monocytes 1 % (0-10); Neutrophil 89 % (42-75); PLT Morphology Comment Appears Adequate; Platelet Count 257 thou/uL (130-400); RBC Distribution Width 13.5 % (11.5-14.5); Red Blood Cell (RBC) Count 3.61 mill/uL (4.70-6.10); White Blood Cell (WBC) Count 14.1 thou/uL (4.8-10.8)
[2018-04-24] MEDS: Cepastat Lozenges 1 LOZ PO PRN (06:30)
[2018-04-24] MEDS: Arformoterol 15 MCG/2 ML NEB NEB SCH ×2 (06:37→17:58)
[2018-04-24] MEDS ORDERED: acetaZOLAMIDE Sodium 500 mg Vial IVP SCH (08:00)
--- NOTE | 2018-04-24 09:05 | RAD ---
SINGLE VIEW CHEST: Date: 04/24/18 COMPARISON: 04/23/18. HISTORY: Ventilated patient with respiratory failure. FINDINGS: Single view of the chest shows a normal sized cardiomediastinal silhouette. Endotracheal tube and NG tube have been removed. There is stable elevation of the right hemidiaphragm. There is no evidence of consolidation, mass, or pleural effusion. Remote right rib fractures are seen. IMPRESSION: Stable exam status post extubation. POS: [facility]
[2018-04-24] MEDS ORDERED: Sterile Water 10 ML ONE (09:52)
[2018-04-24] MEDS: Enoxaparin Sodium 40 MG/0.4 ML SYRINGE SC SCH (09:53)
[2018-04-24] MEDS: Pantoprazole 40 MG VIAL IVP SCH (09:54)
--- NOTE | 2018-04-24 09:55 | PRG ---
DATE OF SERVICE: 04/24/2018 SUBJECTIVE: Mr. Montelongo was extubated successfully yesterday. He has been wearing the Trilogy ventilator intermittently through the day. OBJECTIVE: VITAL SIGNS: On exam, his temperature is 98.6, pulse 105, blood pressure 168/90, O2 saturation between 88% and 100%. A 24-hour intake 1724, output 1600. Weight yesterday was 132 pounds. HEENT: Unremarkable. NECK: No JVD. LUNGS: Distant, but clear breath sounds. CARDIAC: S1 and S2, regular. ABDOMEN: Soft. Nontender to palpation. EXTREMITIES: Trace edema. LABORATORY DATA: Sodium 141, potassium 4, chloride 100, CO2 34, BUN 20, creatinine 0.5, glucose 119. White blood cell count 14.1, hematocrit 35.3, and platelet count 257. ASSESSMENT: 1. End-stage chronic obstructive pulmonary disease. 2. Acute respiratory failure, requiring mechanical ventilation. 3. Slight fluid overload. 4. Anxiety. PLAN: 1. I will go ahead and stop his IV fluids and give him one dose of Diamox. 2. Continue the antibiotics. 3. Leave in the ICU for the time being. Job ID: [id number]
--- NOTE | 2018-04-24 11:55 | PDOC.PN ---
- Subjective Encounter Start Date: 04/24/18 Encounter Start Time: 09:45 -: old records requested/rev Patient seen and examined. No new complaints. No overnight events - Objective Resuscitation Status - Order Detail: 04/20/18 12:07 Resuscitation Status Routine Resuscitation Status: FULL: Full Resuscitation Discussed with: Dr. Tidwell discussed with pts . She wants one round of CPR MAR Reviewed: Yes Vital Signs & Weight: Vital Signs (12 hours) Temp Pulse Resp Pulse Ox 04/24/18 10:32 96 04/24/18 10:30 101 H 17 96 04/24/18 08:00 98.5 F 96 04/24/18 06:37 90 17 96 04/24/18 06:35 90 17 96 04/24/18 04:06 95 04/24/18 04:00 98.6 F 04/24/18 00:00 98.5 F Weight Admit Weight 127 lb 10.362 oz Weight 162 lb 11.218 oz Most Recent Monitor Data Heart Rate from ECG 105 NIBP 126/78 NIBP BP-Mean 94 Respiration from ECG 21 SpO2 97 I&O: 04/23/18 04/24/18 04/25/18 06:59 06:59 06:59 Intake Total 4535.2 1724.3 Output Total 1220 1600 510 Balance 3315.2 124.3 -510 Result Diagrams: 04/24/18 04:50 04/24/18 04:50 Radiology Reviewed by me: Yes (chest xray reviewed) EKG Reviewed by me: Yes (nsr) Phys Exam - Physical Examination Constitutional: NAD on home cpap HEENT: PERRLA, moist MMs, 2+ tonsils Neck: no JVD, supple Respiratory: no wheezing, no rales, no rhonchi reduced air entry Cardiovascular: RRR, no significant murmur, no rub Gastrointestinal: soft, non-tender, no distention, positive bowel sounds Musculoskeletal: no edema, pulses present Neurological: non-focal, normal sensation Lymphatic: no nodes Psychiatric: normal affect, A&O x 3 Skin: no rash, normal turgor Dx/Plan (1) Acute on chronic respiratory failure with hypoxia and hypercapnia Code(s): J96.21 - ACUTE AND CHRONIC RESPIRATORY FAILURE WITH HYPOXIA; J96.22 - ACUTE AND CHRONIC RESPIRATORY FAILURE WITH HYPERCAPNIA Status: Acute (2) COPD exacerbation Code(s): J44.1 - CHRONIC OBSTRUCTIVE PULMONARY DISEASE W (ACUTE) EXACERBATION Status: Acute (3) Pneumonia, aspiration Code(s): J69.0 - PNEUMONITIS DUE TO INHALATION OF FOOD AND VOMIT Status: Acute (4) Septic shock Code(s): A41.9 - SEPSIS, UNSPECIFIED ORGANISM; R65.21 - SEVERE SEPSIS WITH SEPTIC SHOCK Status: Acute (5) Anxiety and depression Code(s): F41.9 - ANXIETY DISORDER, UNSPECIFIED; F32.9 - MAJOR DEPRESSIVE DISORDER, SINGLE EPISODE, UNSPECIFIED Status: Chronic (6) Compression fracture of thoracic vertebra Code(s): S22.000A - WEDGE COMPRESSION FRACTURE OF UNSP THORACIC VERTEBRA, INIT Status: Chronic (7) End stage chronic obstructive pulmonary disease Code(s): J44.9 - CHRONIC OBSTRUCTIVE PULMONARY DISEASE, UNSPECIFIED Status: Chronic (8) Former smoker Status: Chronic (9) Physical deconditioning Code(s): R53.81 - OTHER MALAISE Status: Chronic Comment: - Plan cont current plan of care, continue antibiotics, respiratory therapy * monitor in ccu * medication reviewed as below * symptomatic treatment * continue current optimum treatment for copd * DC IVF * diamox added and lasix given. Review of Systems - Review of Systems Constitutional: weakness. negative: fever, chills, sweats, malaise, other Respiratory: Cough, Shortness of Breath, SOB with Excertion, Sputum, Wheezing. negative: Dry, Hemoptysis, Pleuritic Pain Cardiovascular: negative: chest pain, palpitations, orthopnea, paroxysmal nocturnal dyspnea, edema, light headedness, other Gastrointestinal: negative: Nausea, Vomiting, Abdominal Pain, Diarrhea, Constipation, Melena, Hematochezia, Other Genitourinary: negative: Dysuria, Frequency, Incontinence, Hematuria, Retention , Other Musculoskeletal: negative: Neck Pain, Shoulder Pain, Arm Pain, Back Pain, Hand Pain, Leg Pain, Foot Pain, Other Skin: negative: Rash, Lesions, Alonso, Bruising, Other - Medications/Allergies Allergies/Adverse Reactions: Allergies Allergy/AdvReac Type Severity Reaction Status Date / Time No Known Allergies Allergy Verified 06/20/17 03:47 Medications: Current Medications Acetaminophen (Tylenol Elixir) 650 mg PO Q6H PRN PRN Reason: Headache/Fever or Pain Last Admin: 04/23/18 21:43 Dose: 650 mg Albuterol/Ipratropium (Duoneb) 3 ml NEB [id number] [facility] Last Admin: 04/24/18 10:30 Dose: 3 ml Arformoterol Tartrate (Brovana) 15 mcg NEB BID-RT MK Last Admin: 04/24/18 06:37 Dose: 15 mcg Aspirin (Aspirin Chewable) 81 mg PO DAILY [facility] Budesonide (Pulmicort Neb Solution) 0.5 mg INH BID-RT MK Clonazepam (Klonopin) 0.5 mg PO BID PRN PRN Reason: Anxiety Enoxaparin Sodium (Lovenox) 40 mg SC 0900 [facility] Last Admin: 04/24/18 09:53 Dose: 40 mg Levofloxacin 750 mg/ Device 150 mls @ 100 mls/hr IVPB 1330 MK Last Admin: 04/23/18 14:09 Dose: 150 mls Norepinephrine Bitartrate (Levophed) 250 mls @ 0 mls/hr IVPB INF MK; Protocol Last Admin: 04/22/18 05:22 Dose: 250 mls Potassium Chloride 40 meq/ (Sodium Chloride) 270 mls @ 135 mls/hr IVPB ASDIR PRN PRN Reason: FOR SERUM K+ 2.5 - 3.5 Potassium Chloride 40 meq/ (Device) 100 mls @ 50 mls/hr IVPB ASDIR PRN PRN Reason: FOR SERUM K+ 2.5 - 3.5 Magnesium Sulfate 1 gm/ Sodium (Chloride) 102 mls @ 102 mls/hr IV PRN PRN PRN Reason: MAG LEVEL 1.4 - 2.0 Last Admin: 04/21/18 12:16 Dose: 102 mls Magnesium Sulfate 2 gm/ Device 100 mls @ 100 mls/hr IVPB ASDIR PRN PRN Reason: MAGNESIUM < 1.4 Potassium Phosphate 9 mmol/ (Sodium Chloride) 103 mls @ 25.75 mls/hr IVPB ASDIR PRN PRN Reason: Phosphate 1.0-1.8 Potassium Phosphate 12 mmol/ (Sodium Chloride) 254 mls @ 63.5 mls/hr IV ASDIR PRN PRN Reason: Serum phosphate 0.5-0.9 Potassium Phosphate 15 mmol/ (Sodium Chloride) 255 mls @ 63.75 mls/hr IV ASDIR PRN PRN Reason: Serum Phos < 0.5 Piperacillin Sod/Tazobactam (Sod 3.375 gm/ Sodium Chloride) 100 mls @ 200 mls/ hr IVPB 0400,1000,1600,2200 [facility] Last Admin: 04/24/18 09:53 Dose: 100 mls Magnesium Oxide (Magnesium Oxide) 400 mg PO BIDPRN PRN PRN Reason: FOR SERUM MAG 1.4 - 2.0 Magnesium Oxide (Magnesium Oxide) 800 mg PO PRN PRN PRN Reason: FOR SERUM MAG < 1.4 Methylprednisolone Sodium Succinate (Solu-Medrol) 20 mg IVP 0300,0900,1500, 2100 [facility] Last Admin: 04/24/18 09:54 Dose: 20 mg Miscellaneous Medication (Phos-Nak) 1 pkt PO TIDPRN PRN PRN Reason: FOR PHOS LEVEL 1.0 - 1.8 Miscellaneous Medication (Phos-Nak) 2 pkt PO TIDPRN PRN PRN Reason: FOR PHOS LEVEL 0.5 - 1.0 Ccu Electrolyte (Replacement Protocol) 0 each FS PRN PRN PRN Reason: FOR ELECTROLYTE REPLACEMENT Pantoprazole Sodium (Protonix) 40 mg IVP DAILY [facility] Last Admin: 04/24/18 09:54 Dose: 40 mg Potassium Chloride (K-Dur) 40 meq PO ASDIR PRN PRN Reason: FOR SERUM K+ 2.5 - 3.5 Potassium Chloride (Klor-Con) 40 meq PER TUBE ASDIR PRN PRN Reason: FOR SERUM K+ 2.5-3.5 Throat Lozenges (Cepastat Lozenges) 1 chao PO Q4H PRN PRN Reason: Sore Throat Last Admin: 04/24/18 06:30 Dose: 1 chao
[2018-04-24] MEDS: clonazePAM 0.5 MG TAB PO PRN ×2 (13:08→20:55)
[2018-04-24] MEDS: Acetaminophen 650 MG/20.3 ML UDCUP PO PRN (17:59)
[2018-04-24] MEDS: Budesonide 0.5 MG/2 ML NEB INH SCH (18:01)
[2018-04-25] MEDS: Piperacillin/Tazobactam 3.375 GM in Sodium Chloride 0.9% 100 ML IVPB SCH (03:33)
[2018-04-25 04:04] LABS: Band 23 % (5-11); Hemoglobin 12.5 g/dL (14.0-18.0); Lymphocytes 1 % (21-51); MDiff Complete? YES; Mean Corpuscular HGB CONC 32.4 g/dL (32.0-36.0); Mean Corpuscular Hemoglobin 31.3 pg (27.0-31.0); Mean Corpuscular Volume 96.6 fL (78.0-98.0); Mean Platelet Volume 6.9 fL (7.4-10.4); Monocytes 1 % (0-10); Neutrophil 75 % (42-75); PLT Morphology Comment Appears Adequate; Platelet Count 269 thou/uL (130-400); RBC Distribution Width 13.7 % (11.5-14.5); Red Blood Cell (RBC) Count 3.99 mill/uL (4.70-6.10); White Blood Cell (WBC) Count 15.7 thou/uL (4.8-10.8)
[2018-04-25 04:06] LABS: Anion Gap 10 mmol/L (10-20); BUN (Urea Nitrogen) 17 mg/dL (8.4-25.7); Calc. Creatinine Clearance 109 mL/min (70-130); Calcium 8.8 mg/dL (7.8-10.44); Carbon Dioxide 30 mmol/L (23-31); Chloride 104 mmol/L (98-107); Estimated GFR-MDRD Greater than 90; Glucose 120 mg/dL (83-110); Magnesium 1.9 mg/dL (1.6-2.6); Potassium 3.9 mmol/L (3.5-5.1); Sodium 140 mmol/L (136-145)
[2018-04-25 04:36] LABS: Phosphorus 3.6 mg/dL (2.3-4.7)
[2018-04-25] MEDS: Budesonide 0.5 MG/2 ML NEB INH SCH ×2 (07:27→19:20)
[2018-04-25] MEDS: Arformoterol 15 MCG/2 ML NEB NEB SCH ×2 (07:28→19:20)
--- NOTE | 2018-04-25 08:44 | PRG ---
DATE OF SERVICE: 04/25/2018 SUBJECTIVE: Mr. Montelongo has done fairly well since extubation. He is still using the Trilogy ventilator OBJECTIVE: VITAL SIGNS: Temperature 98.3, pulse 101, blood pressure 109/76. A 24-hour intake 2413, output 4430. Weight 143 pounds. HEENT: Unremarkable. NECK: No JVD. LUNGS: Distant, but clear breath sounds. CARDIAC: S1 and S2, slightly tachycardic. ABDOMEN: Soft, nontender. EXTREMITIES: No edema. LABORATORY DATA: Sodium 140, potassium 3.9, BUN 17, creatinine 0.6, glucose 120. White blood cell count 13.7, hematocrit 38.5, platelet count 269. ASSESSMENT: 1. Chronic obstructive pulmonary disease with exacerbation. 2. Pneumonia. 3. Acute on chronic respiratory failure. 4. Severe anxiety. PLAN: 1. Moved to the [facility]. 2. Increase Klonopin. 3. Change to oral antibiotics. 4. Continue IV steroids for the time being. Job ID: [id number]
[2018-04-25] MEDS: Enoxaparin Sodium 40 MG/0.4 ML SYRINGE SC SCH (08:46)
[2018-04-25] MEDS: Cefdinir 300 MG CAP PO SCH (08:46)
[2018-04-25] MEDS: clonazePAM 0.5 MG TAB PO PRN ×2 (08:47→20:12)
[2018-04-25] MEDS: Cepastat Lozenges 1 LOZ PO PRN ×2 (08:48→20:38)
--- NOTE | 2018-04-25 09:58 | PDOC.PN ---
- Subjective Encounter Start Date: 04/25/18 Encounter Start Time: 09:00 Patient seen and examined. No new complaints. No overnight events still very weak and dyspnea, heart rate is variable but tachy - Objective Resuscitation Status - Order Detail: 04/20/18 12:07 Resuscitation Status Routine Resuscitation Status: FULL: Full Resuscitation Discussed with: Dr. Tidwell discussed with pts . She wants one round of CPR MAR Reviewed: Yes Vital Signs & Weight: Vital Signs (12 hours) Temp Pulse Resp Pulse Ox 04/25/18 07:57 98 04/25/18 07:27 94 19 97 04/25/18 07:00 98.1 F 04/25/18 04:00 98.3 F 04/25/18 02:15 97 04/25/18 02:14 114 H 18 97 04/25/18 00:00 98.9 F Weight Admit Weight 127 lb 10.362 oz Weight 143 lb 4.807 oz Most Recent Monitor Data Heart Rate from ECG 109 NIBP 123/72 NIBP BP-Mean 89 Respiration from ECG 21 SpO2 99 I&O: 04/24/18 04/25/18 04/26/18 06:59 06:59 06:59 Intake Total 1724.3 2413 120 Output Total 1600 4430 510 Balance 124.3 -2017 -390 Result Diagrams: 04/25/18 03:30 04/25/18 03:30 EKG Reviewed by me: Yes (tachy) Phys Exam - Physical Examination Constitutional: NAD HEENT: PERRLA, sclera anicteric Neck: no JVD, supple very poor air entry Cardiovascular: RRR, no significant murmur, no rub tachycardia distant heart sound Gastrointestinal: soft, non-tender, no distention, positive bowel sounds Musculoskeletal: no edema, pulses present Neurological: non-focal, normal sensation Psychiatric: normal affect Skin: no rash, normal turgor Dx/Plan (1) Acute on chronic respiratory failure with hypoxia and hypercapnia Code(s): J96.21 - ACUTE AND CHRONIC RESPIRATORY FAILURE WITH HYPOXIA; J96.22 - ACUTE AND CHRONIC RESPIRATORY FAILURE WITH HYPERCAPNIA Status: Acute (2) COPD exacerbation Code(s): J44.1 - CHRONIC OBSTRUCTIVE PULMONARY DISEASE W (ACUTE) EXACERBATION Status: Acute (3) Pneumonia, aspiration Code(s): J69.0 - PNEUMONITIS DUE TO INHALATION OF FOOD AND VOMIT Status: Acute (4) Septic shock Code(s): A41.9 - SEPSIS, UNSPECIFIED ORGANISM; R65.21 - SEVERE SEPSIS WITH SEPTIC SHOCK Status: Acute (5) Anxiety and depression Code(s): F41.9 - ANXIETY DISORDER, UNSPECIFIED; F32.9 - MAJOR DEPRESSIVE DISORDER, SINGLE EPISODE, UNSPECIFIED Status: Chronic (6) Compression fracture of thoracic vertebra Code(s): S22.000A - WEDGE COMPRESSION FRACTURE OF UNSP THORACIC VERTEBRA, INIT Status: Chronic (7) End stage chronic obstructive pulmonary disease Code(s): J44.9 - CHRONIC OBSTRUCTIVE PULMONARY DISEASE, UNSPECIFIED Status: Chronic (8) Former smoker Status: Chronic (9) Physical deconditioning Code(s): R53.81 - OTHER MALAISE Status: Chronic Comment: - Plan cont current plan of care, continue antibiotics, respiratory therapy * today transferred to [facility] * antibiotics changed to po * continue IV solumedrol * pulmonary managing * medication reviewed as below * symptomatic treatment * prognosis is poor. Review of Systems - Review of Systems Constitutional: weakness, malaise. negative: fever, chills, sweats, other ENT: negative: Ear Pain, Ear Discharge, Nose Pain, Nose Discharge, Nose Congestion, Mouth Pain, Mouth Swelling, Throat Pain, Throat Swelling, Other Respiratory: Cough, Shortness of Breath, SOB with Excertion, Sputum. negative: Dry, Hemoptysis, Pleuritic Pain, Wheezing Cardiovascular: negative: chest pain, palpitations, orthopnea, paroxysmal nocturnal dyspnea, edema, light headedness, other Gastrointestinal: negative: Nausea, Vomiting, Abdominal Pain, Diarrhea, Constipation, Melena, Hematochezia, Other Genitourinary: negative: Dysuria, Frequency, Incontinence, Hematuria, Retention , Other Musculoskeletal: negative: Neck Pain, Shoulder Pain, Arm Pain, Back Pain, Hand Pain, Leg Pain, Foot Pain, Other - Medications/Allergies Allergies/Adverse Reactions: Allergies Allergy/AdvReac Type Severity Reaction Status Date / Time No Known Allergies Allergy Verified 06/20/17 03:47 Medications: Current Medications Acetaminophen (Tylenol Elixir) 650 mg PO Q6H PRN PRN Reason: Headache/Fever or Pain Last Admin: 04/24/18 17:59 Dose: 650 mg Albuterol/Ipratropium (Duoneb) 3 ml NEB [id number] [facility] Last Admin: 04/25/18 07:27 Dose: 3 ml Arformoterol Tartrate (Brovana) 15 mcg NEB BID-RT [facility] Last Admin: 04/25/18 07:28 Dose: 15 mcg Aspirin (Aspirin Chewable) 81 mg PO DAILY [facility] Last Admin: 04/25/18 08:47 Dose: 81 mg Budesonide (Pulmicort Neb Solution) 0.5 mg INH BID-RT [facility] Last Admin: 04/25/18 07:27 Dose: 0.5 mg Cefdinir (Omnicef) 600 mg PO DAILY [facility] Last Admin: 04/25/18 08:46 Dose: 600 mg Clonazepam (Klonopin) 0.5 mg PO TID PRN PRN Reason: Anxiety Last Admin: 04/25/18 08:47 Dose: 0.5 mg Enoxaparin Sodium (Lovenox) 40 mg SC 0900 [facility] Last Admin: 04/25/18 08:46 Dose: 40 mg Levofloxacin (Levaquin) 500 mg PO 0600 [facility] Levofloxacin (Levaquin) 500 mg PO 0900 [facility] Stop: 04/25/18 11:00 Last Admin: 04/25/18 08:47 Dose: 500 mg Methylprednisolone Sodium Succinate (Solu-Medrol) 20 mg IVP 0300,0900,1500, 2100 [facility] Last Admin: 04/25/18 08:47 Dose: 20 mg Ccu Electrolyte (Replacement Protocol) 0 each FS PRN PRN PRN Reason: FOR ELECTROLYTE REPLACEMENT Pantoprazole Sodium (Protonix) 40 mg PO DAILY [facility] Last Admin: 04/25/18 08:47 Dose: 40 mg Throat Lozenges (Cepastat Lozenges) 1 chao PO Q4H PRN PRN Reason: Sore Throat Last Admin: 04/25/18 08:48 Dose: 1 chao
[2018-04-26] MEDS: Cepastat Lozenges 1 LOZ PO PRN ×3 (02:38→17:20)
[2018-04-26] MEDS: Budesonide 0.5 MG/2 ML NEB INH SCH ×2 (08:00→19:03)
[2018-04-26] MEDS: Arformoterol 15 MCG/2 ML NEB NEB SCH ×2 (08:12→19:02)
[2018-04-26] MEDS: Enoxaparin Sodium 40 MG/0.4 ML SYRINGE SC SCH (09:52)
[2018-04-26] MEDS: Cefdinir 300 MG CAP PO SCH (09:52)
--- NOTE | 2018-04-26 10:20 | PDOC.PN ---
- Subjective Encounter Start Date: 04/26/18 Encounter Start Time: 10:00 Patient seen and examined. No new complaints. No overnight events - Objective Resuscitation Status - Order Detail: 04/20/18 12:07 Resuscitation Status Routine Resuscitation Status: FULL: Full Resuscitation Discussed with: Dr. Tidwell discussed with pts . She wants one round of CPR MAR Reviewed: Yes Vital Signs & Weight: Vital Signs (12 hours) Temp Pulse Resp BP Pulse Ox 04/26/18 08:00 109 H 20 99 04/26/18 07:30 100 04/26/18 07:27 98.1 F 101 H 22 H 106/84 100 04/26/18 03:30 98.1 F 92 20 105/59 L 100 04/26/18 02:35 92 18 100 04/26/18 00:25 93 17 112/56 L 100 04/25/18 22:48 93 18 100 Weight Admit Weight 127 lb 10.362 oz Weight 139 lb 15.896 oz Most Recent Monitor Data Heart Rate from ECG 109 NIBP 123/72 NIBP BP-Mean 89 Respiration from ECG 21 SpO2 99 I&O: 04/25/18 04/26/18 04/27/18 06:59 06:59 06:59 Intake Total 2413 960.5 Output Total 4430 3920 Balance -2016 -2959.5 Result Diagrams: 04/25/18 03:30 04/25/18 03:30 Phys Exam - Physical Examination Constitutional: NAD HEENT: PERRLA, moist MMs, sclera anicteric Neck: no JVD, supple still reduced air entry Cardiovascular: RRR, no significant murmur, no rub Gastrointestinal: soft, non-tender, no distention, positive bowel sounds Musculoskeletal: no edema, pulses present Neurological: non-focal, normal sensation Lymphatic: no nodes Psychiatric: normal affect Skin: no rash, normal turgor Dx/Plan (1) Acute on chronic respiratory failure with hypoxia and hypercapnia Code(s): J96.21 - ACUTE AND CHRONIC RESPIRATORY FAILURE WITH HYPOXIA; J96.22 - ACUTE AND CHRONIC RESPIRATORY FAILURE WITH HYPERCAPNIA Status: Acute (2) COPD exacerbation Code(s): J44.1 - CHRONIC OBSTRUCTIVE PULMONARY DISEASE W (ACUTE) EXACERBATION Status: Acute (3) Pneumonia, aspiration Code(s): J69.0 - PNEUMONITIS DUE TO INHALATION OF FOOD AND VOMIT Status: Acute (4) Septic shock Code(s): A41.9 - SEPSIS, UNSPECIFIED ORGANISM; R65.21 - SEVERE SEPSIS WITH SEPTIC SHOCK Status: Acute (5) Anxiety and depression Code(s): F41.9 - ANXIETY DISORDER, UNSPECIFIED; F32.9 - MAJOR DEPRESSIVE DISORDER, SINGLE EPISODE, UNSPECIFIED Status: Chronic (6) Compression fracture of thoracic vertebra Code(s): S22.000A - WEDGE COMPRESSION FRACTURE OF UNSP THORACIC VERTEBRA, INIT Status: Chronic (7) End stage chronic obstructive pulmonary disease Code(s): J44.9 - CHRONIC OBSTRUCTIVE PULMONARY DISEASE, UNSPECIFIED Status: Chronic (8) Former smoker Status: Chronic (9) Physical deconditioning Code(s): R53.81 - OTHER MALAISE Status: Chronic Comment: - Plan cont current plan of care, continue antibiotics, respiratory therapy * currently on maximum treatment for COPD * pulmonary following * he needs more time to recover * medication reviewed as below * symptomatic treatment. Review of Systems - Review of Systems Constitutional: weakness. negative: fever, chills, sweats, malaise, other Respiratory: Cough, Shortness of Breath, SOB with Excertion, Sputum. negative: Dry, Hemoptysis, Pleuritic Pain, Wheezing Cardiovascular: negative: chest pain, palpitations, orthopnea, paroxysmal nocturnal dyspnea, edema, light headedness, other Gastrointestinal: negative: Nausea, Vomiting, Abdominal Pain, Diarrhea, Constipation, Melena, Hematochezia, Other Genitourinary: negative: Dysuria, Frequency, Incontinence, Hematuria, Retention , Other Musculoskeletal: negative: Neck Pain, Shoulder Pain, Arm Pain, Back Pain, Hand Pain, Leg Pain, Foot Pain, Other Skin: negative: Rash, Lesions, Alonso, Bruising, Other - Medications/Allergies Allergies/Adverse Reactions: Allergies Allergy/AdvReac Type Severity Reaction Status Date / Time No Known Allergies Allergy Verified 06/20/17 03:47 Medications: Current Medications Acetaminophen (Tylenol Elixir) 650 mg PO Q6H PRN PRN Reason: Headache/Fever or Pain Last Admin: 04/24/18 17:59 Dose: 650 mg Albuterol/Ipratropium (Duoneb) 3 ml NEB [id number] [facility] Last Admin: 04/26/18 08:00 Dose: 3 ml Arformoterol Tartrate (Brovana) 15 mcg NEB BID-RT [facility] Last Admin: 04/26/18 08:12 Dose: 15 mcg Aspirin (Aspirin Chewable) 81 mg PO DAILY [facility] Last Admin: 04/26/18 09:52 Dose: 81 mg Budesonide (Pulmicort Neb Solution) 0.5 mg INH BID-RT [facility] Last Admin: 04/26/18 08:00 Dose: 0.5 mg Cefdinir (Omnicef) 600 mg PO DAILY [facility] Last Admin: 04/26/18 09:52 Dose: 600 mg Clonazepam (Klonopin) 0.5 mg PO TID PRN PRN Reason: Anxiety Last Admin: 04/25/18 20:12 Dose: 0.5 mg Enoxaparin Sodium (Lovenox) 40 mg SC 0900 [facility] Last Admin: 04/26/18 09:52 Dose: 40 mg Levofloxacin (Levaquin) 500 mg PO 0600 [facility] Last Admin: 04/26/18 03:28 Dose: 500 mg Methylprednisolone Sodium Succinate (Solu-Medrol) 20 mg IVP 0300,0900,1500, 2100 [facility] Last Admin: 04/26/18 09:52 Dose: 20 mg Ccu Electrolyte (Replacement Protocol) 0 each FS PRN PRN PRN Reason: FOR ELECTROLYTE REPLACEMENT Pantoprazole Sodium (Protonix) 40 mg PO DAILY [facility] Last Admin: 04/26/18 09:52 Dose: 40 mg Throat Lozenges (Cepastat Lozenges) 1 chao PO Q4H PRN PRN Reason: Sore Throat Last Admin: 04/26/18 02:38 Dose: 1 chao
--- NOTE | 2018-04-26 10:57 | PRG ---
DATE OF SERVICE: 04/26/2018 SUBJECTIVE: The patient has been moved to the Intermediate Care Unit. He rested last night. He seems more alert this morning. OBJECTIVE: VITAL SIGNS: His temperature is 98.1, pulse 109, respirations 20, O2 saturation 99% on 3 L, and blood pressure 106/84. HEENT: Remarkable for disheveled appearance. NECK: No JVD. LUNGS: Clear, but distant breath sounds. CARDIAC: S1 and S2. Slightly tachycardic. ABDOMEN: Soft and nontender. EXTREMITIES: No edema. LABORATORY DATA: No labs were done today. ASSESSMENT: 1. Severe chronic obstructive pulmonary disease with exacerbation. 2. End-stage chronic obstructive pulmonary disease. 3. Chronic hypoxic and hypercapnic respiratory failure. PLAN: I have initiated Physical Therapy consult. We are continuing IV steroids, breathing treatments, and oral antibiotics. Job ID: [id number]
[2018-04-26] MEDS: clonazePAM 0.5 MG TAB PO PRN ×2 (12:44→19:02)
[2018-04-26] MEDS: Acetaminophen 650 MG/20.3 ML UDCUP PO PRN (20:32)
[2018-04-27] MEDS: Cepastat Lozenges 1 LOZ PO PRN ×3 (04:08→20:21)
[2018-04-27] MEDS: Arformoterol 15 MCG/2 ML NEB NEB SCH ×2 (07:45→18:26)
[2018-04-27] MEDS: Budesonide 0.5 MG/2 ML NEB INH SCH ×2 (07:45→18:26)
--- NOTE | 2018-04-27 08:56 | PRG ---
DATE OF SERVICE: 04/27/2018 SUBJECTIVE: Mr. Montelongo is in fairly good spirits today. He slept on Trilogy some last night. OBJECTIVE: VITAL SIGNS: On exam, his temperature is 98.3, pulse 102, respirations 19, and O2 sat 98% on 4 L. HEENT: Unremarkable. NECK: No JVD. CHEST: Clear anteriorly. CARDIAC: S1 and S2, regular. ABDOMEN: Soft. EXTREMITIES: No edema. ASSESSMENT: End-stage chronic obstructive pulmonary disease, currently exacerbated. PLAN: I will go ahead and reduce his steroid dose. He will continue his oral antibiotics. We are mainly dealing with deconditioning at this point. The patient is on chronic Trilogy ventilation up to 18 hours per day. He is continuing to insist that he be full code. My hope is to get him home early next week. Job ID: [id number]
[2018-04-27] MEDS: Cefdinir 300 MG CAP PO SCH (10:33)
[2018-04-27] MEDS: Enoxaparin Sodium 40 MG/0.4 ML SYRINGE SC SCH (10:33)
[2018-04-27] MEDS: clonazePAM 0.5 MG TAB PO PRN ×2 (10:35→20:21)
--- NOTE | 2018-04-27 11:03 | PDOC.PN ---
- Subjective Encounter Start Date: 04/27/18 Encounter Start Time: 10:00 Patient seen and examined. No new complaints. No overnight events very weak - Objective Resuscitation Status - Order Detail: 04/20/18 12:07 Resuscitation Status Routine Resuscitation Status: FULL: Full Resuscitation Discussed with: Dr. Tidwell discussed with pts . She wants one round of CPR MAR Reviewed: Yes Vital Signs & Weight: Vital Signs (12 hours) Temp Pulse Resp BP Pulse Ox 04/27/18 10:50 114 H 25 H 96 04/27/18 08:00 94 L 04/27/18 07:46 98 04/27/18 07:43 102 H 19 97 04/27/18 07:36 98.3 F 99 22 H 105/66 99 04/27/18 03:48 97.2 F L 99 18 94/62 94 L 04/27/18 03:10 100 20 94 L 04/26/18 23:40 97.4 F L 102 H 18 116/65 97 Weight Admit Weight 127 lb 10.362 oz Weight 135 lb 2.294 oz Most Recent Monitor Data Heart Rate from ECG 109 NIBP 123/72 NIBP BP-Mean 89 Respiration from ECG 21 SpO2 99 I&O: 04/26/18 04/27/18 04/28/18 06:59 06:59 06:59 Intake Total 960.5 701 Output Total 3920 2350 Balance -2959.5 -1649 Result Diagrams: 04/25/18 03:30 04/25/18 03:30 EKG Reviewed by me: Yes (nsr) Phys Exam - Physical Examination Constitutional: NAD HEENT: PERRLA, moist MMs, sclera anicteric Neck: no JVD, supple Respiratory: no wheezing, no rhonchi reduced air entry Cardiovascular: RRR, no significant murmur, no rub Gastrointestinal: soft, non-tender, no distention, positive bowel sounds Musculoskeletal: no edema, pulses present Neurological: non-focal Lymphatic: no nodes Psychiatric: normal affect Skin: no rash, normal turgor Dx/Plan (1) Acute on chronic respiratory failure with hypoxia and hypercapnia Code(s): J96.21 - ACUTE AND CHRONIC RESPIRATORY FAILURE WITH HYPOXIA; J96.22 - ACUTE AND CHRONIC RESPIRATORY FAILURE WITH HYPERCAPNIA Status: Acute (2) COPD exacerbation Code(s): J44.1 - CHRONIC OBSTRUCTIVE PULMONARY DISEASE W (ACUTE) EXACERBATION Status: Acute (3) Pneumonia, aspiration Code(s): J69.0 - PNEUMONITIS DUE TO INHALATION OF FOOD AND VOMIT Status: Acute (4) Septic shock Code(s): A41.9 - SEPSIS, UNSPECIFIED ORGANISM; R65.21 - SEVERE SEPSIS WITH SEPTIC SHOCK Status: Acute (5) Anxiety and depression Code(s): F41.9 - ANXIETY DISORDER, UNSPECIFIED; F32.9 - MAJOR DEPRESSIVE DISORDER, SINGLE EPISODE, UNSPECIFIED Status: Chronic (6) Compression fracture of thoracic vertebra Code(s): S22.000A - WEDGE COMPRESSION FRACTURE OF UNSP THORACIC VERTEBRA, INIT Status: Chronic (7) End stage chronic obstructive pulmonary disease Code(s): J44.9 - CHRONIC OBSTRUCTIVE PULMONARY DISEASE, UNSPECIFIED Status: Chronic (8) Former smoker Status: Chronic (9) Physical deconditioning Code(s): R53.81 - OTHER MALAISE Status: Chronic Comment: - Plan cont current plan of care, continue antibiotics, respiratory therapy * today dose of steroid reduced * continue PT * continue current respiratory therapy * he still not ready for discharge * medication reviewed as below * symptomatic treatment. Review of Systems - Review of Systems Constitutional: weakness. negative: fever, chills, sweats, malaise, other ENT: negative: Ear Pain, Ear Discharge, Nose Pain, Nose Discharge, Nose Congestion, Mouth Pain, Mouth Swelling, Throat Pain, Throat Swelling, Other Respiratory: Cough, Shortness of Breath, SOB with Excertion, Sputum. negative: Dry, Hemoptysis, Pleuritic Pain, Wheezing Cardiovascular: negative: chest pain, palpitations, orthopnea, paroxysmal nocturnal dyspnea, edema, light headedness, other Gastrointestinal: negative: Nausea, Vomiting, Abdominal Pain, Diarrhea, Constipation, Melena, Hematochezia, Other Genitourinary: negative: Dysuria, Frequency, Incontinence, Hematuria, Retention , Other Musculoskeletal: negative: Neck Pain, Shoulder Pain, Arm Pain, Back Pain, Hand Pain, Leg Pain, Foot Pain, Other Skin: negative: Rash, Lesions, Alonso, Bruising, Other - Medications/Allergies Allergies/Adverse Reactions: Allergies Allergy/AdvReac Type Severity Reaction Status Date / Time No Known Allergies Allergy Verified 06/20/17 03:47 Medications: Current Medications Acetaminophen (Tylenol Elixir) 650 mg PO Q6H PRN PRN Reason: Headache/Fever or Pain Last Admin: 04/26/18 20:32 Dose: 650 mg Albuterol/Ipratropium (Duoneb) 3 ml NEB [id number] [facility] Last Admin: 04/27/18 10:50 Dose: 3 ml Arformoterol Tartrate (Brovana) 15 mcg NEB BID-RT [facility] Last Admin: 04/27/18 07:45 Dose: 15 mcg Aspirin (Aspirin Chewable) 81 mg PO DAILY [facility] Last Admin: 04/27/18 10:33 Dose: 81 mg Budesonide (Pulmicort Neb Solution) 0.5 mg INH BID-RT [facility] Last Admin: 04/27/18 07:45 Dose: 0.5 mg Cefdinir (Omnicef) 600 mg PO DAILY [facility] Last Admin: 04/27/18 10:33 Dose: 600 mg Clonazepam (Klonopin) 0.5 mg PO TID PRN PRN Reason: Anxiety Last Admin: 04/27/18 10:35 Dose: 0.5 mg Enoxaparin Sodium (Lovenox) 40 mg SC 0900 [facility] Last Admin: 04/27/18 10:33 Dose: 40 mg Levofloxacin (Levaquin) 500 mg PO 0600 [facility] Last Admin: 04/27/18 05:00 Dose: 500 mg Methylprednisolone Sodium Succinate (Solu-Medrol) 20 mg IVP BID [facility] Last Admin: 04/27/18 10:33 Dose: 20 mg Ccu Electrolyte (Replacement Protocol) 0 each FS PRN PRN PRN Reason: FOR ELECTROLYTE REPLACEMENT Pantoprazole Sodium (Protonix) 40 mg PO DAILY [facility] Last Admin: 04/27/18 10:33 Dose: 40 mg Throat Lozenges (Cepastat Lozenges) 1 chao PO Q4H PRN PRN Reason: Sore Throat Last Admin: 04/27/18 04:08 Dose: 1 chao
[2018-04-27] MEDS: Acetaminophen 650 MG/20.3 ML UDCUP PO PRN ×2 (14:42→20:20)
[2018-04-28] MEDS: Cepastat Lozenges 1 LOZ PO PRN ×3 (00:45→20:37)
[2018-04-28] MEDS: clonazePAM 0.5 MG TAB PO PRN ×2 (05:55→20:38)
[2018-04-28] MEDS: Budesonide 0.5 MG/2 ML NEB INH SCH ×2 (07:16→19:34)
[2018-04-28] MEDS: Arformoterol 15 MCG/2 ML NEB NEB SCH ×2 (07:16→19:34)
[2018-04-28] MEDS: Enoxaparin Sodium 40 MG/0.4 ML SYRINGE SC SCH (08:19)
[2018-04-28] MEDS: Cefdinir 300 MG CAP PO SCH (08:20)
[2018-04-28] MEDS: Acetaminophen 650 MG/20.3 ML UDCUP PO PRN ×3 (08:32→20:38)
--- NOTE | 2018-04-28 10:40 | PDOC.PN ---
- Subjective Encounter Start Date: 04/28/18 Encounter Start Time: 09:45 pt has very little reserve with activity, he gets tachycardic and tachypneic, that requires time to settle down , very weak, appears depressed - Objective Resuscitation Status - Order Detail: 04/20/18 12:07 Resuscitation Status Routine Resuscitation Status: FULL: Full Resuscitation Discussed with: Dr. Tidwell discussed with pts . She wants one round of CPR MAR Reviewed: Yes Vital Signs & Weight: Vital Signs (12 hours) Temp Pulse Resp BP Pulse Ox 04/28/18 07:58 93 L 04/28/18 07:40 97.9 F 108 H 32 H 114/62 96 04/28/18 07:17 95 04/28/18 07:14 109 H 22 H 95 04/28/18 04:00 97.5 F L 115 H 21 H 105/60 95 04/28/18 02:50 112 H 20 92 L 04/28/18 00:30 98.0 F 107 H 23 H 117/69 94 L Weight Admit Weight 127 lb 3.307 oz Weight 136 lb 14.513 oz Most Recent Monitor Data Heart Rate from ECG 109 NIBP 123/72 NIBP BP-Mean 89 Respiration from ECG 21 SpO2 99 I&O: 04/27/18 04/28/18 04/29/18 06:59 06:59 06:59 Intake Total 701 700 Output Total 2350 600 Balance -1649 100 Result Diagrams: 04/25/18 03:30 04/25/18 03:30 EKG Reviewed by me: Yes (tachycardia) Phys Exam - Physical Examination Constitutional: NAD weak HEENT: PERRLA, moist MMs, sclera anicteric Neck: no JVD, supple reduced air entry, perse lip breathing, tachypneic Cardiovascular: RRR, no significant murmur tachycardia Gastrointestinal: soft, non-tender, no distention, positive bowel sounds Musculoskeletal: no edema, pulses present Neurological: non-focal, normal sensation Lymphatic: no nodes Psychiatric: normal affect Skin: no rash, normal turgor Dx/Plan (1) Acute on chronic respiratory failure with hypoxia and hypercapnia Code(s): J96.21 - ACUTE AND CHRONIC RESPIRATORY FAILURE WITH HYPOXIA; J96.22 - ACUTE AND CHRONIC RESPIRATORY FAILURE WITH HYPERCAPNIA Status: Acute (2) COPD exacerbation Code(s): J44.1 - CHRONIC OBSTRUCTIVE PULMONARY DISEASE W (ACUTE) EXACERBATION Status: Acute (3) Pneumonia, aspiration Code(s): J69.0 - PNEUMONITIS DUE TO INHALATION OF FOOD AND VOMIT Status: Acute (4) Septic shock Code(s): A41.9 - SEPSIS, UNSPECIFIED ORGANISM; R65.21 - SEVERE SEPSIS WITH SEPTIC SHOCK Status: Acute (5) Anxiety and depression Code(s): F41.9 - ANXIETY DISORDER, UNSPECIFIED; F32.9 - MAJOR DEPRESSIVE DISORDER, SINGLE EPISODE, UNSPECIFIED Status: Chronic (6) Compression fracture of thoracic vertebra Code(s): S22.000A - WEDGE COMPRESSION FRACTURE OF UNSP THORACIC VERTEBRA, INIT Status: Chronic (7) End stage chronic obstructive pulmonary disease Code(s): J44.9 - CHRONIC OBSTRUCTIVE PULMONARY DISEASE, UNSPECIFIED Status: Chronic (8) Former smoker Status: Chronic (9) Physical deconditioning Code(s): R53.81 - OTHER MALAISE Status: Chronic Comment: - Plan cont current plan of care, continue antibiotics, respiratory therapy * medication reviewed as below * symptomatic treatment * continue current optimum respiratory therapy * 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 Review of Systems - Review of Systems Constitutional: weakness, malaise. negative: fever, chills, sweats, other Respiratory: Cough, Shortness of Breath, SOB with Excertion, Sputum. negative: Dry, Hemoptysis, Pleuritic Pain, Wheezing Cardiovascular: negative: chest pain, palpitations, orthopnea, paroxysmal nocturnal dyspnea, edema, light headedness, other Gastrointestinal: negative: Nausea, Vomiting, Abdominal Pain, Diarrhea, Constipation, Melena, Hematochezia, Other Genitourinary: negative: Dysuria, Frequency, Incontinence, Hematuria, Retention , Other Musculoskeletal: negative: Neck Pain, Shoulder Pain, Arm Pain, Back Pain, Hand Pain, Leg Pain, Foot Pain, Other Skin: negative: Rash, Lesions, Alonso, Bruising, Other - Medications/Allergies Allergies/Adverse Reactions: Allergies Allergy/AdvReac Type Severity Reaction Status Date / Time No Known Allergies Allergy Verified 06/20/17 03:47 Medications: Current Medications Acetaminophen (Tylenol Elixir) 650 mg PO Q6H PRN PRN Reason: Headache/Fever or Pain Last Admin: 04/28/18 08:32 Dose: 650 mg Albuterol/Ipratropium (Duoneb) 3 ml NEB [id number] Last Admin: 04/28/18 07:14 Dose: 3 ml Arformoterol Tartrate (Brovana) 15 mcg NEB BID-RT [facility] Last Admin: 04/28/18 07:16 Dose: 15 mcg Aspirin (Aspirin Chewable) 81 mg PO DAILY [facility] Last Admin: 04/28/18 08:19 Dose: 81 mg Budesonide (Pulmicort Neb Solution) 0.5 mg INH BID-RT [facility] Last Admin: 04/28/18 07:16 Dose: 0.5 mg Cefdinir (Omnicef) 600 mg PO DAILY [facility] Last Admin: 04/28/18 08:20 Dose: 600 mg Clonazepam (Klonopin) 0.5 mg PO TID PRN PRN Reason: Anxiety Last Admin: 04/28/18 05:55 Dose: 0.5 mg Enoxaparin Sodium (Lovenox) 40 mg SC 0900 [facility] Last Admin: 04/28/18 08:19 Dose: 40 mg Levofloxacin (Levaquin) 500 mg PO 0600 [facility] Last Admin: 04/28/18 05:55 Dose: 500 mg Methylprednisolone Sodium Succinate (Solu-Medrol) 20 mg IVP BID [facility] Last Admin: 04/28/18 08:20 Dose: 20 mg Ccu Electrolyte (Replacement Protocol) 0 each FS PRN PRN PRN Reason: FOR ELECTROLYTE REPLACEMENT Pantoprazole Sodium (Protonix) 40 mg PO DAILY [facility] Last Admin: 04/28/18 08:20 Dose: 40 mg Throat Lozenges (Cepastat Lozenges) 1 chao PO Q4H PRN PRN Reason: Sore Throat Last Admin: 04/28/18 08:19 Dose: 1 chao
--- NOTE | 2018-04-28 12:05 | EKG ---
Test Reason : Blood Pressure : / mmHG Vent. Rate : 150 BPM Atrial Rate : 150 BPM P-R Int : 130 ms QRS Dur : 078 ms QT Int : 272 ms P-R-T Axes : 081 -13 071 degrees QTc Int : 429 ms Sinus tachycardia with frequent Premature ventricular complexes Possible Left atrial enlargement Borderline ECG Confirmed by DI MONROY DO ([id number]), editorial director KAMAR BELL ([id number]) on 04/28/2018 12:05:17 PM Referred By: Confirmed By:DI MONROY DO
[2018-04-28] MEDS ORDERED: Furosemide 20 MG/2 ML VIAL SLOW IVP SCH (19:45)
--- NOTE | 2018-04-28 20:27 | PRG ---
DATE OF SERVICE: 04/28/2018 SERVICE: Pulmonary Medicine. INTERVAL HISTORY: The patient is doing okay from respiratory standpoint. He is breathing okay. He is coughing up a lot of yellow sputum. Otherwise, there has been no interval change to his condition. OBJECTIVE: VITAL SIGNS: Afebrile, pulse 112, blood pressure is 122/66, respirations 33, saturation 95% on AVAPS. HEENT: Normocephalic and atraumatic. Sclerae white. Conjunctivae pink. Oral mucosa is moist without lesions. LUNGS: Really reduced air entry. There is prolonged expiratory phase. I cannot appreciate any adventitious sounds because he is not moving enough air. HEART: Normal rate and regular. ABDOMEN: Soft, nontender, and nondistended. Bowel sounds are positive. MUSCULOSKELETAL: No cyanosis or clubbing. There is 1 to 2+ pitting in the bilateral lower extremities. NEUROLOGIC: Grossly nonfocal. ASSESSMENT: 1. Acute on chronic hypoxic and hypercapnic respiratory failure. 2. Chronic obstructive pulmonary disease with current exacerbation, end-stage. 3. Minimal volume overload. DISCUSSION AND PLAN: We will continue our nebulized medications, steroids, and antibiotics. I will give him a dose of Lasix today and tomorrow morning to see if we can optimize his volume status slightly. I will repeat some laboratories tomorrow morning as it has been a while since we have had them. Pulmonary/Critical Care will continue to follow along in the [facility]. Job ID: [id number]
[2018-04-29] MEDS: Acetaminophen 650 MG/20.3 ML UDCUP PO PRN ×2 (05:24→10:52)
[2018-04-29 06:01] LABS: #Lymphocytes 0.3 thou/uL (1.20-3.40); #Monocytes 0.8 thou/uL (0.11-0.59); #Neutrophils 12.1 thou/uL (1.40-6.50); %Basophils 0.1 % (0.0-1.0); %Eosinophils 0.2 % (0.0-10.0); %Lymphocytes 2.5 % (21.0-51.0); %Monocytes 6.1 % (0.0-10.0); %Neutrophils 91.2 % (42.0-75.0); Hemoglobin 12.9 g/dL (14.0-18.0); Mean Corpuscular Hemoglobin 31.4 pg (27.0-31.0); Mean Corpuscular Volume 98.2 fL (78.0-98.0); Mean Platelet Volume 7.7 fL (7.4-10.4); Platelet Count 291 thou/uL (130-400); RBC Distribution Width 14.1 % (11.5-14.5); Red Blood Cell (RBC) Count 4.11 mill/uL (4.70-6.10); White Blood Cell (WBC) Count 13.3 thou/uL (4.8-10.8)
[2018-04-29 06:14] LABS: Phosphorus 3.5 mg/dL (2.3-4.7)
[2018-04-29 06:15] LABS: BUN (Urea Nitrogen) 16 mg/dL (8.4-25.7); Calc. Creatinine Clearance 109 mL/min (70-130); Calcium 8.5 mg/dL (7.8-10.44); Estimated GFR-MDRD Greater than 90; Glucose 109 mg/dL (83-110)
[2018-04-29 06:29] LABS: Anion Gap 12 mmol/L (10-20); Carbon Dioxide 38 mmol/L (23-31); Chloride 93 mmol/L (98-107); Potassium 4.3 mmol/L (3.5-5.1); Sodium 139 mmol/L (136-145)
[2018-04-29] MEDS: Budesonide 0.5 MG/2 ML NEB INH SCH ×2 (07:27→18:48)
[2018-04-29] MEDS: Arformoterol 15 MCG/2 ML NEB NEB SCH ×2 (07:27→18:47)
--- NOTE | 2018-04-29 08:26 | PDOC.PN ---
- Subjective Encounter Start Date: 04/29/18 Encounter Start Time: 06:50 -: old records requested/rev Patient seen and examined. No overnight events still very weak, - Objective Resuscitation Status - Order Detail: 04/20/18 12:07 Resuscitation Status Routine Resuscitation Status: FULL: Full Resuscitation Discussed with: Dr. Tidwell discussed with pts . She wants one round of CPR MAR Reviewed: Yes Vital Signs & Weight: Vital Signs (12 hours) Temp Pulse Resp BP Pulse Ox 04/29/18 08:00 97.6 F 95 18 109/54 L 98 04/29/18 07:32 94 L 04/29/18 07:27 96 04/29/18 07:25 94 25 H 96 04/29/18 03:58 97.5 F L 105 H 18 111/53 L 93 L 04/29/18 02:44 101 H 20 95 04/28/18 23:53 97.8 F 113 H 20 113/46 L 94 L 04/28/18 22:23 103 H 20 97 Weight Admit Weight 127 lb 3.307 oz Weight 130 lb 15.273 oz Most Recent Monitor Data Heart Rate from ECG 109 NIBP 123/72 NIBP BP-Mean 89 Respiration from ECG 21 SpO2 99 I&O: 04/28/18 04/29/18 04/30/18 06:59 06:59 06:59 Intake Total 700 1450 Output Total 600 1950 Balance 100 -500 Result Diagrams: 04/29/18 05:39 04/29/18 05:39 EKG Reviewed by me: Yes (sinus tachycardia) Phys Exam - Physical Examination Constitutional: NAD HEENT: PERRLA, sclera anicteric Neck: no JVD, supple Respiratory: no wheezing, no rhonchi reduced air entry Cardiovascular: RRR, no significant murmur, no rub tachycardia Gastrointestinal: soft, non-tender, no distention, positive bowel sounds Musculoskeletal: no edema, pulses present Neurological: non-focal, normal sensation Lymphatic: no nodes Psychiatric: normal affect Skin: no rash, normal turgor Dx/Plan (1) Acute on chronic respiratory failure with hypoxia and hypercapnia Code(s): J96.21 - ACUTE AND CHRONIC RESPIRATORY FAILURE WITH HYPOXIA; J96.22 - ACUTE AND CHRONIC RESPIRATORY FAILURE WITH HYPERCAPNIA Status: Acute (2) COPD exacerbation Code(s): J44.1 - CHRONIC OBSTRUCTIVE PULMONARY DISEASE W (ACUTE) EXACERBATION Status: Acute (3) Pneumonia, aspiration Code(s): J69.0 - PNEUMONITIS DUE TO INHALATION OF FOOD AND VOMIT Status: Acute (4) Septic shock Code(s): A41.9 - SEPSIS, UNSPECIFIED ORGANISM; R65.21 - SEVERE SEPSIS WITH SEPTIC SHOCK Status: Acute (5) Anxiety and depression Code(s): F41.9 - ANXIETY DISORDER, UNSPECIFIED; F32.9 - MAJOR DEPRESSIVE DISORDER, SINGLE EPISODE, UNSPECIFIED Status: Chronic (6) Compression fracture of thoracic vertebra Code(s): S22.000A - WEDGE COMPRESSION FRACTURE OF UNSP THORACIC VERTEBRA, INIT Status: Chronic (7) End stage chronic obstructive pulmonary disease Code(s): J44.9 - CHRONIC OBSTRUCTIVE PULMONARY DISEASE, UNSPECIFIED Status: Chronic (8) Former smoker Status: Chronic (9) Physical deconditioning Code(s): R53.81 - OTHER MALAISE Status: Chronic Comment: - Plan cont current plan of care, continue antibiotics, PT/OT, respiratory therapy * medication reviewed as below * symptomatic treatment * continue current maximum treatment for COPD * he is still very dyspneic even with current treatment. Review of Systems - Review of Systems Constitutional: weakness. negative: fever, chills, sweats, malaise, other Respiratory: Cough, Shortness of Breath, SOB with Excertion. negative: Dry, Hemoptysis, Pleuritic Pain, Sputum, Wheezing Cardiovascular: negative: chest pain, palpitations, orthopnea, paroxysmal nocturnal dyspnea, edema, light headedness, other Gastrointestinal: negative: Nausea, Vomiting, Abdominal Pain, Diarrhea, Constipation, Melena, Hematochezia, Other Genitourinary: negative: Dysuria, Frequency, Incontinence, Hematuria, Retention , Other Musculoskeletal: negative: Neck Pain, Shoulder Pain, Arm Pain, Back Pain, Hand Pain, Leg Pain, Foot Pain, Other - Medications/Allergies Allergies/Adverse Reactions: Allergies Allergy/AdvReac Type Severity Reaction Status Date / Time No Known Allergies Allergy Verified 06/20/17 03:47 Medications: Current Medications Acetaminophen (Tylenol Elixir) 650 mg PO Q6H PRN PRN Reason: Headache/Fever or Pain Last Admin: 04/29/18 05:24 Dose: 650 mg Albuterol/Ipratropium (Duoneb) 3 ml NEB [id number] [facility] Last Admin: 04/29/18 07:25 Dose: 3 ml Arformoterol Tartrate (Brovana) 15 mcg NEB BID-RT [facility] Last Admin: 04/29/18 07:27 Dose: 15 mcg Aspirin (Aspirin Chewable) 81 mg PO DAILY [facility] Last Admin: 04/28/18 08:19 Dose: 81 mg Budesonide (Pulmicort Neb Solution) 0.5 mg INH BID-RT [facility] Last Admin: 04/29/18 07:27 Dose: 0.5 mg Cefdinir (Omnicef) 600 mg PO DAILY [facility] Last Admin: 04/28/18 08:20 Dose: 600 mg Clonazepam (Klonopin) 0.5 mg PO TID PRN PRN Reason: Anxiety Last Admin: 04/28/18 20:38 Dose: 0.5 mg Enoxaparin Sodium (Lovenox) 40 mg SC 0900 [facility] Last Admin: 04/28/18 08:19 Dose: 40 mg Furosemide (Lasix) 20 mg SLOW IVP DAILY [facility] Stop: 04/29/18 11:00 Levofloxacin (Levaquin) 500 mg PO 0600 [facility] Last Admin: 04/29/18 05:24 Dose: 500 mg Methylprednisolone Sodium Succinate (Solu-Medrol) 20 mg IVP BID [facility] Last Admin: 04/28/18 20:38 Dose: 20 mg Ccu Electrolyte (Replacement Protocol) 0 each FS PRN PRN PRN Reason: FOR ELECTROLYTE REPLACEMENT Pantoprazole Sodium (Protonix) 40 mg PO DAILY [facility] Last Admin: 04/28/18 08:20 Dose: 40 mg Throat Lozenges (Cepastat Lozenges) 1 chao PO Q4H PRN PRN Reason: Sore Throat Last Admin: 04/28/18 20:37 Dose: 1 chao
[2018-04-29] MEDS ORDERED: Furosemide 20 MG/2 ML VIAL SLOW IVP SCH (09:00)
[2018-04-29] MEDS: Cefdinir 300 MG CAP PO SCH (09:05)
[2018-04-29] MEDS: Enoxaparin Sodium 40 MG/0.4 ML SYRINGE SC SCH (09:05)
[2018-04-29] MEDS ORDERED: Fluconazole In NaCl,Iso-Osm 200 MG in Premix Bag 1 BAG IVPB SCH (13:00)
--- NOTE | 2018-04-29 16:05 | PRG ---
DATE OF SERVICE: 04/29/2018 SERVICE: Pulmonary Medicine. INTERVAL HISTORY: The patient is doing fine today. He is breathing a little easier. His biggest complaint once again is his sore throat. By looking in his mouth, he has a little bit of white plaque that is easily dislodged from his tongue. He likely has some thrush back there. He denies any current fevers or chills. There were no significant overnight events. He is using his ventilator at night , but currently he is comfortable on a break. OBJECTIVE: VITAL SIGNS: Afebrile, pulse 95, blood pressure 109/54, respirations 18, saturation 98%, and on 4 L nasal cannula. GENERAL: The patient is awake and alert. He is in mild respiratory distress with accessory muscle use. HEENT: Normocephalic and atraumatic. Sclerae white. Conjunctivae pink. Oral mucosa is moist without lesions. LUNGS: There is improved air entry. There is a prolonged expiratory phase. Wheezing is present. No crackles or rhonchi appreciated. HEART: Normal rate, regular. ABDOMEN: Soft, nontender, and nondistended. Bowel sounds are positive. MUSCULOSKELETAL: No cyanosis or clubbing. There is trace pitting in the bilateral lower extremities. NEUROLOGIC: Grossly nonfocal. LABORATORY DATA: WBC 13.3 and downtrending, hemoglobin 12.9, platelets 291,000 and stable. Chloride 93, bicarb 38. Basic metabolic profile, magnesium and phosphorus are otherwise unremarkable. ASSESSMENT: 1. Acute on chronic hypoxic and hypercapnic respiratory failure. 2. Chronic obstructive pulmonary disease with current exacerbation. 3. Minimal volume overload, resolved. 4. Thrush. DISCUSSION AND PLAN: The patient has already been started on fluconazole. We will give him a little bit of Magic mouthwash to see if this improves on some of his sore throat. We will repeat laboratory holiday starting tomorrow morning. Pulmonary will continue to follow in this location. Ultimately, the patient has end-stage COPD and it is a possibility that he will not recover from this hospital stay. If we can, we will start mobilization efforts. Job ID: [id number] [facility]
[2018-04-29] MEDS: Aluminum & Magnesium Hydroxide 60 ML, diphenhydrAMINE 150 MG, Lidocaine 2% Viscous Solu... SSW PRN (17:59)
[2018-04-29] MEDS: clonazePAM 0.5 MG TAB PO PRN (20:55)
[2018-04-30] MEDS: Acetaminophen 650 MG/20.3 ML UDCUP PO PRN ×3 (01:37→20:51)
[2018-04-30] MEDS: Budesonide 0.5 MG/2 ML NEB INH SCH ×2 (07:26→18:31)
[2018-04-30] MEDS: Arformoterol 15 MCG/2 ML NEB NEB SCH ×2 (07:27→18:31)
[2018-04-30] MEDS: Cefdinir 300 MG CAP PO SCH (09:18)
[2018-04-30] MEDS: Enoxaparin Sodium 40 MG/0.4 ML SYRINGE SC SCH (09:18)
[2018-04-30] MEDS: clonazePAM 0.5 MG TAB PO PRN ×2 (09:35→20:41)
[2018-04-30] MEDS: Aluminum & Magnesium Hydroxide 60 ML, diphenhydrAMINE 150 MG, Lidocaine 2% Viscous Solu... SSW PRN (09:35)
--- NOTE | 2018-04-30 09:43 | PRG ---
DATE OF SERVICE: 04/30/2018 SUBJECTIVE: Mr. Montelongo is about the same. He is complaining of sore throat. He is currently being treated for thrush. He has gotten out of bed some with help. He has not walked any. He has been very minimal and is using a Trilogy ventilator. He says it dries his throat out too much. OBJECTIVE: VITAL SIGNS: On exam, his temperature is 99.0, pulse 97, respirations 22, and O2 saturation 97% on 3 L. HEENT: Exam is remarkable for faint whitish plaque on tongue. NECK: No JVD. CHEST: Distant, but clear breath sounds. CARDIAC: S1 and S2. Regular. ABDOMEN: Soft. EXTREMITIES: No edema. LABORATORY DATA: No labs were done today. ASSESSMENT: 1. End-stage chronic obstructive pulmonary disease. 2. Chronic obstructive pulmonary disease exacerbation. 3. Chronic respiratory failure. 4. Thrush. PLAN: 1. Rehab screen. 2. Increase activity as tolerated. 3. Try to humidify his Trilogy ventilator if at all possible. 4. Prognosis is quite poor. Job ID: [id number]
--- NOTE | 2018-04-30 09:55 | PDOC.PN ---
- Subjective Encounter Start Date: 04/30/18 Encounter Start Time: 08:30 Patient seen and examined. No new complaints. No overnight events - Objective Resuscitation Status - Order Detail: 04/20/18 12:07 Resuscitation Status Routine Resuscitation Status: FULL: Full Resuscitation Discussed with: Dr. Tidwell discussed with pts . She wants one round of CPR MAR Reviewed: Yes Vital Signs & Weight: Vital Signs (12 hours) Temp Pulse Resp BP Pulse Ox 04/30/18 07:27 97 22 H 97 04/30/18 07:26 97 22 H 97 04/30/18 07:24 97 22 H 97 04/30/18 04:00 99.0 F 112 H 24 H 102/50 L 95 04/30/18 02:15 110 H 20 94 L 04/30/18 00:00 97.9 F 119 H 28 H 124/59 L 91 L 04/29/18 22:14 109 H 20 91 L Weight Admit Weight 127 lb 3.307 oz Weight 134 lb 1.6 oz Most Recent Monitor Data Heart Rate from ECG 109 NIBP 123/72 NIBP BP-Mean 89 Respiration from ECG 21 SpO2 99 I&O: 04/29/18 04/30/18 05/01/18 06:59 06:59 06:59 Intake Total 1450 800 Output Total 1950 2275 Balance -500 -1475 Result Diagrams: 04/29/18 05:39 04/29/18 05:39 EKG Reviewed by me: Yes Phys Exam - Physical Examination Constitutional: NAD HEENT: PERRLA, moist MMs, sclera anicteric Neck: no JVD, supple Respiratory: no wheezing, no rales, no rhonchi reduced air entry Cardiovascular: RRR, no significant murmur, no rub Gastrointestinal: soft, non-tender, no distention, positive bowel sounds Musculoskeletal: no edema, pulses present Neurological: non-focal, normal sensation Lymphatic: no nodes Psychiatric: normal affect Skin: no rash, normal turgor Dx/Plan (1) Acute on chronic respiratory failure with hypoxia and hypercapnia Code(s): J96.21 - ACUTE AND CHRONIC RESPIRATORY FAILURE WITH HYPOXIA; J96.22 - ACUTE AND CHRONIC RESPIRATORY FAILURE WITH HYPERCAPNIA Status: Acute (2) COPD exacerbation Code(s): J44.1 - CHRONIC OBSTRUCTIVE PULMONARY DISEASE W (ACUTE) EXACERBATION Status: Acute (3) Pneumonia, aspiration Code(s): J69.0 - PNEUMONITIS DUE TO INHALATION OF FOOD AND VOMIT Status: Acute (4) Septic shock Code(s): A41.9 - SEPSIS, UNSPECIFIED ORGANISM; R65.21 - SEVERE SEPSIS WITH SEPTIC SHOCK Status: Resolved (5) Anxiety and depression Code(s): F41.9 - ANXIETY DISORDER, UNSPECIFIED; F32.9 - MAJOR DEPRESSIVE DISORDER, SINGLE EPISODE, UNSPECIFIED Status: Chronic (6) Compression fracture of thoracic vertebra Code(s): S22.000A - WEDGE COMPRESSION FRACTURE OF UNSP THORACIC VERTEBRA, INIT Status: Chronic (7) End stage chronic obstructive pulmonary disease Code(s): J44.9 - CHRONIC OBSTRUCTIVE PULMONARY DISEASE, UNSPECIFIED Status: Chronic (8) Former smoker Status: Chronic (9) Physical deconditioning Code(s): R53.81 - OTHER MALAISE Status: Chronic Comment: (10) Dysphagia Code(s): R13.10 - DYSPHAGIA, UNSPECIFIED Status: Acute - Plan cont current plan of care, continue antibiotics, PT/OT, health social work professor, respiratory therapy * continue omnicef * continue steroid * add diflucan * rehab screen * medication reviewed as below * symptomatic treatment * prognosis is poor. Review of Systems - Review of Systems Constitutional: weakness, malaise. negative: fever, chills, sweats, other ENT: negative: Ear Pain, Ear Discharge, Nose Pain, Nose Discharge, Nose Congestion, Mouth Pain, Mouth Swelling, Throat Pain, Throat Swelling, Other Respiratory: Cough, Shortness of Breath, SOB with Excertion, Wheezing. negative : Dry, Hemoptysis, Pleuritic Pain, Sputum Cardiovascular: negative: chest pain, palpitations, orthopnea, paroxysmal nocturnal dyspnea, edema, light headedness, other Gastrointestinal: negative: Nausea, Vomiting, Abdominal Pain, Diarrhea, Constipation, Melena, Hematochezia, Other Genitourinary: negative: Dysuria, Frequency, Incontinence, Hematuria, Retention , Other Musculoskeletal: negative: Neck Pain, Shoulder Pain, Arm Pain, Back Pain, Hand Pain, Leg Pain, Foot Pain, Other - Medications/Allergies Allergies/Adverse Reactions: Allergies Allergy/AdvReac Type Severity Reaction Status Date / Time No Known Allergies Allergy Verified 06/20/17 03:47 Medications: Current Medications Acetaminophen (Tylenol Elixir) 650 mg PO Q6H PRN PRN Reason: Headache/Fever or Pain Last Admin: 04/30/18 09:35 Dose: 650 mg Albuterol/Ipratropium (Duoneb) 3 ml NEB [id number] [facility] Last Admin: 04/30/18 07:24 Dose: 3 ml Arformoterol Tartrate (Brovana) 15 mcg NEB BID-RT [facility] Last Admin: 04/30/18 07:27 Dose: 15 mcg Aspirin (Aspirin Chewable) 81 mg PO DAILY [facility] Last Admin: 04/30/18 09:18 Dose: 81 mg Budesonide (Pulmicort Neb Solution) 0.5 mg INH BID-RT [facility] Last Admin: 04/30/18 07:26 Dose: 0.5 mg Cefdinir (Omnicef) 600 mg PO DAILY [facility] Last Admin: 04/30/18 09:18 Dose: 600 mg Clonazepam (Klonopin) 0.5 mg PO TID PRN PRN Reason: Anxiety Last Admin: 04/30/18 09:35 Dose: 0.5 mg Al Hydroxide/Mg Hydroxide 60 ml/ Diphenhydramine HCl 150 mg / Lidocaine HCl 60 ml/Nystatin 6,000,000 units 0 ml SSW PRN PRN PRN Reason: Mouth Irritation Last Admin: 04/30/18 09:35 Dose: 10 ml Enoxaparin Sodium (Lovenox) 40 mg SC 0900 [facility] Last Admin: 04/30/18 09:18 Dose: 40 mg Fluconazole/Sodium Chloride 100 mg/ Miscellaneous Medication 50 mls @ 100 mls/ hr IVPB 1400 [facility] Levofloxacin (Levaquin) 500 mg PO 0600 [facility] Last Admin: 04/30/18 05:59 Dose: 500 mg Methylprednisolone Sodium Succinate (Solu-Medrol) 20 mg IVP BID [facility] Last Admin: 04/30/18 09:18 Dose: 20 mg Ccu Electrolyte (Replacement Protocol) 0 each FS PRN PRN PRN Reason: FOR ELECTROLYTE REPLACEMENT Pantoprazole Sodium (Protonix) 40 mg PO DAILY [facility] Last Admin: 04/30/18 09:19 Dose: 40 mg Sodium Chloride ([place] Nasal [place] 0.65%) 1 ml EA NARE TID [facility] Throat Lozenges (Cepastat Lozenges) 1 chao PO Q4H PRN PRN Reason: Sore Throat Last Admin: 04/28/18 20:37 Dose: 1 chao
[2018-04-30] MEDS: Sodium Chloride 0.65% Nasal 44 ML BOT EA NARE SCH ×2 (10:09→14:22)
[2018-04-30] MEDS: ADMIXTURE FEE CHEMO IVPB SCH (14:21)
[2018-04-30] MEDS: NACL ISO OSM IVPB SCH (14:21)
[2018-04-30] MEDS: FLUCONAZOLE IVPB SCH (14:21)
[2018-05-01] MEDS: Sodium Chloride 0.65% Nasal 44 ML BOT EA NARE SCH ×4 (00:13→21:09)
[2018-05-01] MEDS: Budesonide 0.5 MG/2 ML NEB INH SCH ×2 (07:14→18:28)
[2018-05-01] MEDS: Arformoterol 15 MCG/2 ML NEB NEB SCH ×2 (07:14→18:28)
[2018-05-01] MEDS: Cefdinir 300 MG CAP PO SCH (09:19)
[2018-05-01] MEDS: Enoxaparin Sodium 40 MG/0.4 ML SYRINGE SC SCH (09:19)
[2018-05-01] MEDS: Acetaminophen 650 MG/20.3 ML UDCUP PO PRN (09:20)
--- NOTE | 2018-05-01 10:27 | PRG ---
DATE OF SERVICE: 05/01/2018 SUBJECTIVE: The patient remains in the intermediate care unit, extremely weak since he did get up yesterday and participate some with physical therapy. OBJECTIVE: VITAL SIGNS: Temperature 97.8, pulse 104, respirations are about 30, O2 saturation 94% on 4 L, and blood pressure 104/71. HEENT: Remarkable for clearing of the thrush on his tongue. NECK: No JVD. LUNGS: Clear, but distant breath sounds. CARDIAC: S1 and S2, regular. ABDOMEN: Soft. EXTREMITIES: Trace edema. LABORATORY DATA: No labs were done today. ASSESSMENT: 1. End-stage chronic obstructive pulmonary disease, which is currently exacerbated. 2. Thrush. 3. Severe debilitation. PLAN: 1. Continue the antifungal therapy. 2. Continue physical therapy. 3. Waiting rehab recommendations. The patient is in very poor shape, and I doubt he would be able to tolerate transfer to home at the current time. Job ID: [id number]
--- NOTE | 2018-05-01 11:49 | PDOC.PN ---
- Subjective Encounter Start Date: 05/01/18 Encounter Start Time: 08:50 Patient seen and examined. No new complaints. No overnight events very weak, poor apatite - Objective Resuscitation Status - Order Detail: 04/20/18 12:07 Resuscitation Status Routine Resuscitation Status: FULL: Full Resuscitation Discussed with: Dr. Tidwell discussed with pts . She wants one round of CPR MAR Reviewed: Yes Vital Signs & Weight: Vital Signs (12 hours) Temp Pulse Resp BP Pulse Ox 05/01/18 11:45 98.1 F 105 H 20 94/57 L 97 05/01/18 10:54 109 H 36 H 95 05/01/18 07:39 97.8 F 104 H 20 104/71 94 L 05/01/18 07:22 96 05/01/18 07:14 106 H 22 H 94 L 05/01/18 07:12 106 H 22 H 94 L 05/01/18 04:32 98.2 F 103 H 23 H 114/74 95 05/01/18 02:58 95 18 98 05/01/18 00:26 98.0 F 102 H 25 H 107/70 98 Weight Admit Weight 127 lb 3.307 oz Weight 125 lb 12.8 oz Most Recent Monitor Data Heart Rate from ECG 109 NIBP 123/72 NIBP BP-Mean 89 Respiration from ECG 21 SpO2 99 I&O: 04/30/18 05/01/18 05/02/18 06:59 06:59 06:59 Intake Total 800 1120 Output Total 2275 1200 Balance -1475 -80 Result Diagrams: 04/29/18 05:39 04/29/18 05:39 EKG Reviewed by me: Yes (tachycardia) Phys Exam - Physical Examination Constitutional: NAD HEENT: PERRLA, sclera anicteric Neck: no JVD, supple Respiratory: no wheezing, no rales, no rhonchi reduced air entry Cardiovascular: RRR, no significant murmur, no rub Gastrointestinal: soft, non-tender, no distention Musculoskeletal: no edema, pulses present Neurological: non-focal, normal sensation Lymphatic: no nodes Psychiatric: normal affect Skin: no rash, normal turgor Dx/Plan (1) Acute on chronic respiratory failure with hypoxia and hypercapnia Code(s): J96.21 - ACUTE AND CHRONIC RESPIRATORY FAILURE WITH HYPOXIA; J96.22 - ACUTE AND CHRONIC RESPIRATORY FAILURE WITH HYPERCAPNIA Status: Acute (2) COPD exacerbation Code(s): J44.1 - CHRONIC OBSTRUCTIVE PULMONARY DISEASE W (ACUTE) EXACERBATION Status: Acute (3) Pneumonia, aspiration Code(s): J69.0 - PNEUMONITIS DUE TO INHALATION OF FOOD AND VOMIT Status: Acute (4) Septic shock Code(s): A41.9 - SEPSIS, UNSPECIFIED ORGANISM; R65.21 - SEVERE SEPSIS WITH SEPTIC SHOCK Status: Resolved (5) Anxiety and depression Code(s): F41.9 - ANXIETY DISORDER, UNSPECIFIED; F32.9 - MAJOR DEPRESSIVE DISORDER, SINGLE EPISODE, UNSPECIFIED Status: Chronic (6) Compression fracture of thoracic vertebra Code(s): S22.000A - WEDGE COMPRESSION FRACTURE OF UNSP THORACIC VERTEBRA, INIT Status: Chronic (7) End stage chronic obstructive pulmonary disease Code(s): J44.9 - CHRONIC OBSTRUCTIVE PULMONARY DISEASE, UNSPECIFIED Status: Chronic (8) Former smoker Status: Chronic (9) Physical deconditioning Code(s): R53.81 - OTHER MALAISE Status: Chronic Comment: (10) Dysphagia Code(s): R13.10 - DYSPHAGIA, UNSPECIFIED Status: Acute - Plan cont current plan of care, plan discussed w/ family, continue antibiotics, PT/OT , social worker psychiatric, respiratory therapy * overall he is very weak, he can not tolerate even little effort * he can not be managed by at home * he appears depressed, not getting better * hospice is best option but he refuses * medication reviewed as below * symptomatic treatment. Review of Systems - Review of Systems Constitutional: weakness, malaise. negative: fever, chills, sweats, other Respiratory: Cough, Shortness of Breath, SOB with Excertion, Wheezing. negative : Dry, Hemoptysis, Pleuritic Pain, Sputum Cardiovascular: negative: chest pain, palpitations, orthopnea, paroxysmal nocturnal dyspnea, edema, light headedness, other Gastrointestinal: negative: Nausea, Vomiting, Abdominal Pain, Diarrhea, Constipation, Melena, Hematochezia, Other Genitourinary: negative: Dysuria, Frequency, Incontinence, Hematuria, Retention , Other Musculoskeletal: negative: Neck Pain, Shoulder Pain, Arm Pain, Back Pain, Hand Pain, Leg Pain, Foot Pain, Other Skin: negative: Rash, Lesions, Alonso, Bruising, Other - Medications/Allergies Allergies/Adverse Reactions: Allergies Allergy/AdvReac Type Severity Reaction Status Date / Time No Known Allergies Allergy Verified 06/20/17 03:47 Medications: Current Medications Acetaminophen (Tylenol Elixir) 650 mg PO Q6H PRN PRN Reason: Headache/Fever or Pain Last Admin: 05/01/18 09:20 Dose: 650 mg Albuterol/Ipratropium (Duoneb) 3 ml NEB [id number] [facility] Last Admin: 05/01/18 10:54 Dose: 3 ml Arformoterol Tartrate (Brovana) 15 mcg NEB BID-RT [facility] Last Admin: 05/01/18 07:14 Dose: 15 mcg Aspirin (Aspirin Chewable) 81 mg PO DAILY [facility] Last Admin: 05/01/18 09:19 Dose: 81 mg Budesonide (Pulmicort Neb Solution) 0.5 mg INH BID-RT [facility] Last Admin: 05/01/18 07:14 Dose: 0.5 mg Cefdinir (Omnicef) 600 mg PO DAILY [facility] Last Admin: 05/01/18 09:19 Dose: 600 mg Clonazepam (Klonopin) 0.5 mg PO TID PRN PRN Reason: Anxiety Last Admin: 04/30/18 20:41 Dose: 0.5 mg Al Hydroxide/Mg Hydroxide 60 ml/ Diphenhydramine HCl 150 mg / Lidocaine HCl 60 ml/Nystatin 6,000,000 units 0 ml SSW PRN PRN PRN Reason: Mouth Irritation Last Admin: 04/30/18 09:35 Dose: 10 ml Enoxaparin Sodium (Lovenox) 40 mg SC 0900 [facility] Last Admin: 05/01/18 09:19 Dose: 40 mg Fluconazole/Sodium Chloride 100 mg/ Miscellaneous Medication 50 mls @ 100 mls/ hr IVPB 1400 [facility] Last Admin: 04/30/18 14:21 Dose: 50 mls Methylprednisolone Sodium Succinate (Solu-Medrol) 20 mg IVP BID [facility] Last Admin: 05/01/18 09:19 Dose: 20 mg Ccu Electrolyte (Replacement Protocol) 0 each FS PRN PRN PRN Reason: FOR ELECTROLYTE REPLACEMENT Pantoprazole Sodium (Protonix) 40 mg PO DAILY [facility] Last Admin: 05/01/18 09:20 Dose: 40 mg Sodium Chloride ([place] Nasal [place] 0.65%) 1 ml EA NARE TID [facility] Last Admin: 05/01/18 09:17 Dose: 1 spr Throat Lozenges (Cepastat Lozenges) 1 chao PO Q4H PRN PRN Reason: Sore Throat Last Admin: 04/28/18 20:37 Dose: 1 chao
[2018-05-01] MEDS: NACL ISO OSM IVPB SCH (14:46)
[2018-05-01] MEDS: Aluminum & Magnesium Hydroxide 60 ML, diphenhydrAMINE 150 MG, Lidocaine 2% Viscous Solu... SSW PRN (14:46)
[2018-05-01] MEDS: ADMIXTURE FEE CHEMO IVPB SCH (14:46)
[2018-05-01] MEDS: FLUCONAZOLE IVPB SCH (14:46)
[2018-05-01] MEDS: clonazePAM 0.5 MG TAB PO PRN (22:23)
[2018-05-02] MEDS: Arformoterol 15 MCG/2 ML NEB NEB SCH ×2 (07:17→19:07)
[2018-05-02] MEDS: Budesonide 0.5 MG/2 ML NEB INH SCH ×2 (07:17→19:07)
[2018-05-02] MEDS: Cefdinir 300 MG CAP PO SCH (09:42)
[2018-05-02] MEDS: Sodium Chloride 0.65% Nasal 44 ML BOT EA NARE SCH ×3 (09:43→20:02)
[2018-05-02] MEDS: Enoxaparin Sodium 40 MG/0.4 ML SYRINGE SC SCH (09:43)
--- NOTE | 2018-05-02 09:48 | PRG ---
DATE OF SERVICE: SUBJECTIVE: The patient is about the same. He has not used his Trelegy in several days. OBJECTIVE: VITAL SIGNS: Temperature 98.1, pulse 106, respirations 22, O2 sat 98% on 3 L, blood pressure 160/61. GENERAL: He has a general disheveled appearance. HEENT: His oropharynx does not show any yeast. NECK: No JVD. LUNGS: Distant breath sounds. CARDIAC: S1, S2 regular. ABDOMEN: Soft. EXTREMITIES: Severe muscle wasting. LABORATORY DATA: No labs were done today. ASSESSMENT: 1. Chronic obstructive pulmonary disease with exacerbation. 2. Extreme deconditioning. PLAN: Basically needs rehab and strengthening. Physical therapy can be more aggressive with him. Job ID: [id number]
--- NOTE | 2018-05-02 10:05 | PDOC.PN ---
- Subjective Encounter Start Date: 05/02/18 Encounter Start Time: 08:15 Patient seen and examined. No new complaints. No overnight events - Objective Resuscitation Status - Order Detail: 04/20/18 12:07 Resuscitation Status Routine Resuscitation Status: FULL: Full Resuscitation Discussed with: Dr. Tidwell discussed with pts . She wants one round of CPR MAR Reviewed: Yes Vital Signs & Weight: Vital Signs (12 hours) Temp Pulse Resp BP Pulse Ox 05/02/18 07:29 98.1 F 106 H 22 H 106/61 90 L 05/02/18 07:17 103 H 26 H 90 L 05/02/18 03:51 97.1 F L 98 16 103/58 L 100 05/02/18 02:07 107 H 28 H 92 L 05/02/18 00:00 99.5 F 93 16 105/57 L 94 L 05/01/18 22:33 102 H 24 H 95 Weight Admit Weight 127 lb 3.307 oz Weight 124 lb 12.8 oz Most Recent Monitor Data Heart Rate from ECG 109 NIBP 123/72 NIBP BP-Mean 89 Respiration from ECG 21 SpO2 99 I&O: 05/01/18 05/02/18 05/03/18 06:59 06:59 06:59 Intake Total 1120 240 Output Total 1200 950 Balance -80 -710 Result Diagrams: 04/29/18 05:39 04/29/18 05:39 EKG Reviewed by me: Yes (nsr) Phys Exam - Physical Examination Constitutional: NAD HEENT: PERRLA, moist MMs, sclera anicteric Neck: no JVD, supple Respiratory: no wheezing, no rales, no rhonchi Cardiovascular: RRR, no significant murmur, no rub Gastrointestinal: soft, non-tender, no distention, positive bowel sounds Musculoskeletal: no edema, pulses present Neurological: non-focal, normal sensation Lymphatic: no nodes Psychiatric: normal affect Skin: no rash, normal turgor Dx/Plan (1) Acute on chronic respiratory failure with hypoxia and hypercapnia Code(s): J96.21 - ACUTE AND CHRONIC RESPIRATORY FAILURE WITH HYPOXIA; J96.22 - ACUTE AND CHRONIC RESPIRATORY FAILURE WITH HYPERCAPNIA Status: Acute (2) COPD exacerbation Code(s): J44.1 - CHRONIC OBSTRUCTIVE PULMONARY DISEASE W (ACUTE) EXACERBATION Status: Acute (3) Pneumonia, aspiration Code(s): J69.0 - PNEUMONITIS DUE TO INHALATION OF FOOD AND VOMIT Status: Acute (4) Septic shock Code(s): A41.9 - SEPSIS, UNSPECIFIED ORGANISM; R65.21 - SEVERE SEPSIS WITH SEPTIC SHOCK Status: Resolved (5) Anxiety and depression Code(s): F41.9 - ANXIETY DISORDER, UNSPECIFIED; F32.9 - MAJOR DEPRESSIVE DISORDER, SINGLE EPISODE, UNSPECIFIED Status: Chronic (6) Compression fracture of thoracic vertebra Code(s): S22.000A - WEDGE COMPRESSION FRACTURE OF UNSP THORACIC VERTEBRA, INIT Status: Chronic (7) End stage chronic obstructive pulmonary disease Code(s): J44.9 - CHRONIC OBSTRUCTIVE PULMONARY DISEASE, UNSPECIFIED Status: Chronic (8) Former smoker Status: Chronic (9) Physical deconditioning Code(s): R53.81 - OTHER MALAISE Status: Chronic Comment: (10) Dysphagia Code(s): R13.10 - DYSPHAGIA, UNSPECIFIED Status: Acute - Plan cont current plan of care, continue antibiotics, respiratory therapy * will continue current treatment plan * will consider discharge when pulmonary ok * medication reviewed as below * symptomatic treatment. Review of Systems - Review of Systems ENT: negative: Ear Pain, Ear Discharge, Nose Pain, Nose Discharge, Nose Congestion, Mouth Pain, Mouth Swelling, Throat Pain, Throat Swelling, Other Respiratory: negative: Cough, Dry, Shortness of Breath, Hemoptysis, SOB with Excertion, Pleuritic Pain, Sputum, Wheezing Cardiovascular: negative: chest pain, palpitations, orthopnea, paroxysmal nocturnal dyspnea, edema, light headedness, other Gastrointestinal: negative: Nausea, Vomiting, Abdominal Pain, Diarrhea, Constipation, Melena, Hematochezia, Other Genitourinary: negative: Dysuria, Frequency, Incontinence, Hematuria, Retention , Other Musculoskeletal: negative: Neck Pain, Shoulder Pain, Arm Pain, Back Pain, Hand Pain, Leg Pain, Foot Pain, Other - Medications/Allergies Allergies/Adverse Reactions: Allergies Allergy/AdvReac Type Severity Reaction Status Date / Time No Known Allergies Allergy Verified 06/20/17 03:47 Medications: Current Medications Acetaminophen (Tylenol Elixir) 650 mg PO Q6H PRN PRN Reason: Headache/Fever or Pain Last Admin: 05/01/18 09:20 Dose: 650 mg Albuterol/Ipratropium (Duoneb) 3 ml NEB [id number] [facility] Last Admin: 05/02/18 07:17 Dose: 3 ml Arformoterol Tartrate (Brovana) 15 mcg NEB BID-RT [facility] Last Admin: 05/02/18 07:17 Dose: 15 mcg Aspirin (Aspirin Chewable) 81 mg PO DAILY [facility] Last Admin: 05/02/18 09:42 Dose: 81 mg Budesonide (Pulmicort Neb Solution) 0.5 mg INH BID-RT [facility] Last Admin: 05/02/18 07:17 Dose: 0.5 mg Cefdinir (Omnicef) 600 mg PO DAILY [facility] Last Admin: 05/02/18 09:42 Dose: 600 mg Clonazepam (Klonopin) 0.5 mg PO TID PRN PRN Reason: Anxiety Last Admin: 05/01/18 22:23 Dose: 0.5 mg Al Hydroxide/Mg Hydroxide 60 ml/ Diphenhydramine HCl 150 mg / Lidocaine HCl 60 ml/Nystatin 6,000,000 units 0 ml SSW PRN PRN PRN Reason: Mouth Irritation Last Admin: 05/01/18 14:46 Dose: 10 ml Enoxaparin Sodium (Lovenox) 40 mg SC 0900 [facility] Last Admin: 05/02/18 09:43 Dose: 40 mg Fluconazole/Sodium Chloride 100 mg/ Miscellaneous Medication 50 mls @ 100 mls/ hr IVPB 1400 [facility] Last Admin: 05/01/18 14:46 Dose: 50 mls Methylprednisolone Sodium Succinate (Solu-Medrol) 20 mg IVP BID [facility] Last Admin: 05/02/18 09:43 Dose: 20 mg Ccu Electrolyte (Replacement Protocol) 0 each FS PRN PRN PRN Reason: FOR ELECTROLYTE REPLACEMENT Pantoprazole Sodium (Protonix) 40 mg PO DAILY [facility] Last Admin: 05/02/18 09:43 Dose: 40 mg Sodium Chloride ([place] Nasal [place] 0.65%) 1 ml EA NARE TID [facility] Last Admin: 05/02/18 09:43 Dose: 1 spr Throat Lozenges (Cepastat Lozenges) 1 chao PO Q4H PRN PRN Reason: Sore Throat Last Admin: 04/28/18 20:37 Dose: 1 chao
[2018-05-02] MEDS: NACL ISO OSM IVPB SCH (15:42)
[2018-05-02] MEDS: ADMIXTURE FEE CHEMO IVPB SCH (15:42)
[2018-05-02] MEDS: FLUCONAZOLE IVPB SCH (15:42)
[2018-05-02] MEDS: Acetaminophen 650 MG/20.3 ML UDCUP PO PRN ×2 (15:43→23:37)
[2018-05-02] MEDS: Aluminum & Magnesium Hydroxide 60 ML, diphenhydrAMINE 150 MG, Lidocaine 2% Viscous Solu... SSW PRN (18:15)
[2018-05-02] MEDS: clonazePAM 0.5 MG TAB PO PRN (19:55)
[2018-05-03] MEDS: Arformoterol 15 MCG/2 ML NEB NEB SCH ×2 (07:32→18:31)
[2018-05-03] MEDS: Budesonide 0.5 MG/2 ML NEB INH SCH ×2 (07:34→18:32)
[2018-05-03] MEDS: Sodium Chloride 0.65% Nasal 44 ML BOT EA NARE SCH ×3 (09:15→20:33)
[2018-05-03] MEDS: Enoxaparin Sodium 40 MG/0.4 ML SYRINGE SC SCH (09:20)
[2018-05-03] MEDS: Cefdinir 300 MG CAP PO SCH (09:20)
[2018-05-03] MEDS: predniSONE 20 MG TAB PO SCH ×2 (10:33→20:29)
[2018-05-03] MEDS: Fluconazole 100 MG TAB PO SCH (10:33)
--- NOTE | 2018-05-03 10:33 | PRG ---
DATE OF SERVICE: 05/03/2018 SUBJECTIVE: Mr. Montelongo still looks very depressed. He says that he wants to go home. OBJECTIVE: VITAL SIGNS: Temperature 97.6, pulse 97, respirations 21 to 28, O2 saturation 95% on 3 L, and blood pressure 116/64. GENERAL: He looks disheveled. HEENT: Improved mucositis. NECK: No JVD. LUNGS: Distant, but clear breath sounds. CARDIOVASCULAR: S1 and S2. Regular. ABDOMEN: Soft and nontender. EXTREMITIES: Bruising, but no edema. LABORATORY DATA: No labs were obtained today. ASSESSMENT: 1. Severe chronic obstructive pulmonary disease with exacerbation. 2. End-stage chronic obstructive pulmonary disease and some chronic hypercapnic and hypoxic respiratory failure. RECOMMENDATIONS: 1. I will go ahead and switch him over to oral prednisone and stop his IV steroids. 2. Switch to oral antifungals. 3. I told him he had to increase his level of activity with physical therapy. I think in his current condition, he would not do well at home. I do not think that his is capable of doing everything that is necessary to take care of him. Unfortunately, the patient had a bad experience with hospice in the past and is reluctant to go that route. Job ID: [id number]
--- NOTE | 2018-05-03 11:04 | PDOC.PN ---
- Subjective Encounter Start Date: 05/03/18 Encounter Start Time: 07:40 Patient seen and examined. No new complaints. No overnight events he is very weak, not participating with therapy, he needs help even for eating food - Objective Resuscitation Status - Order Detail: 04/20/18 12:07 Resuscitation Status Routine Resuscitation Status: FULL: Full Resuscitation Discussed with: Dr. Tidwell discussed with pts . She wants one round of CPR MAR Reviewed: Yes Vital Signs & Weight: Vital Signs (12 hours) Temp Pulse Resp BP Pulse Ox 05/03/18 07:48 97.6 F 97 21 H 116/64 95 05/03/18 07:32 84 20 93 L 05/03/18 04:00 96.6 F L 96 20 110/60 95 05/03/18 02:45 93 20 95 05/03/18 00:00 97.6 F 93 22 H 117/67 95 Weight Admit Weight 127 lb 3.307 oz Weight 125 lb 1.6 oz Most Recent Monitor Data Heart Rate from ECG 109 NIBP 123/72 NIBP BP-Mean 89 Respiration from ECG 21 SpO2 99 I&O: 05/02/18 05/03/18 05/04/18 06:59 06:59 06:59 Intake Total 240 240 Output Total 950 600 Balance -710 -360 Result Diagrams: 04/29/18 05:39 04/29/18 05:39 EKG Reviewed by me: Yes (sinus tachycardia) Phys Exam - Physical Examination Constitutional: NAD HEENT: PERRLA, moist MMs, sclera anicteric Neck: no JVD, supple Respiratory: no wheezing, no rales, no rhonchi reduced air entry Cardiovascular: RRR, no significant murmur, no rub Gastrointestinal: soft, non-tender, no distention, positive bowel sounds Musculoskeletal: no edema, pulses present Neurological: non-focal, normal sensation Lymphatic: no nodes Psychiatric: normal affect Skin: no rash, normal turgor Dx/Plan (1) Acute on chronic respiratory failure with hypoxia and hypercapnia Code(s): J96.21 - ACUTE AND CHRONIC RESPIRATORY FAILURE WITH HYPOXIA; J96.22 - ACUTE AND CHRONIC RESPIRATORY FAILURE WITH HYPERCAPNIA Status: Acute (2) COPD exacerbation Code(s): J44.1 - CHRONIC OBSTRUCTIVE PULMONARY DISEASE W (ACUTE) EXACERBATION Status: Acute (3) Pneumonia, aspiration Code(s): J69.0 - PNEUMONITIS DUE TO INHALATION OF FOOD AND VOMIT Status: Acute (4) Septic shock Code(s): A41.9 - SEPSIS, UNSPECIFIED ORGANISM; R65.21 - SEVERE SEPSIS WITH SEPTIC SHOCK Status: Resolved (5) Anxiety and depression Code(s): F41.9 - ANXIETY DISORDER, UNSPECIFIED; F32.9 - MAJOR DEPRESSIVE DISORDER, SINGLE EPISODE, UNSPECIFIED Status: Chronic (6) Compression fracture of thoracic vertebra Code(s): S22.000A - WEDGE COMPRESSION FRACTURE OF UNSP THORACIC VERTEBRA, INIT Status: Chronic (7) End stage chronic obstructive pulmonary disease Code(s): J44.9 - CHRONIC OBSTRUCTIVE PULMONARY DISEASE, UNSPECIFIED Status: Chronic (8) Former smoker Status: Chronic (9) Physical deconditioning Code(s): R53.81 - OTHER MALAISE Status: Chronic Comment: (10) Dysphagia Code(s): R13.10 - DYSPHAGIA, UNSPECIFIED Status: Acute - Plan cont current plan of care, continue antibiotics, PT/OT, 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 Review of Systems - Review of Systems Constitutional: weakness Respiratory: Cough, Shortness of Breath, SOB with Excertion. negative: Dry, Hemoptysis, Pleuritic Pain, Sputum, Wheezing Cardiovascular: negative: chest pain, palpitations, orthopnea, paroxysmal nocturnal dyspnea, edema, light headedness, other Gastrointestinal: negative: Nausea, Vomiting, Abdominal Pain, Diarrhea, Constipation, Melena, Hematochezia, Other Genitourinary: negative: Dysuria, Frequency, Incontinence, Hematuria, Retention , Other Musculoskeletal: negative: Neck Pain, Shoulder Pain, Arm Pain, Back Pain, Hand Pain, Leg Pain, Foot Pain, Other Skin: negative: Rash, Lesions, Alonso, Bruising, Other - Medications/Allergies Allergies/Adverse Reactions: Allergies Allergy/AdvReac Type Severity Reaction Status Date / Time No Known Allergies Allergy Verified 06/20/17 03:47 Medications: Current Medications Acetaminophen (Tylenol Elixir) 650 mg PO Q6H PRN PRN Reason: Headache/Fever or Pain Last Admin: 05/02/18 23:37 Dose: 650 mg Albuterol/Ipratropium (Duoneb) 3 ml NEB [id number] [facility] Last Admin: 05/03/18 10:43 Dose: Not Given Arformoterol Tartrate (Brovana) 15 mcg NEB BID-RT [facility] Last Admin: 05/03/18 07:32 Dose: 15 mcg Aspirin (Aspirin Chewable) 81 mg PO DAILY [facility] Last Admin: 05/03/18 09:19 Dose: 81 mg Budesonide (Pulmicort Neb Solution) 0.5 mg INH BID-RT [facility] Last Admin: 05/03/18 07:34 Dose: 0.5 mg Cefdinir (Omnicef) 600 mg PO DAILY [facility] Last Admin: 05/03/18 09:20 Dose: 600 mg Clonazepam (Klonopin) 0.5 mg PO TID PRN PRN Reason: Anxiety Last Admin: 05/02/18 19:55 Dose: 0.5 mg Al Hydroxide/Mg Hydroxide 60 ml/ Diphenhydramine HCl 150 mg / Lidocaine HCl 60 ml/Nystatin 6,000,000 units 0 ml SSW PRN PRN PRN Reason: Mouth Irritation Last Admin: 05/02/18 18:15 Dose: 10 ml Enoxaparin Sodium (Lovenox) 40 mg SC 0900 [facility] Last Admin: 05/03/18 09:20 Dose: 40 mg Fluconazole (Diflucan) 100 mg PO DAILY [facility] Last Admin: 05/03/18 10:33 Dose: 100 mg Ccu Electrolyte (Replacement Protocol) 0 each FS PRN PRN PRN Reason: FOR ELECTROLYTE REPLACEMENT Pantoprazole Sodium (Protonix) 40 mg PO DAILY [facility] Last Admin: 05/03/18 09:19 Dose: 40 mg Prednisone (Prednisone) 20 mg PO BID [facility] Last Admin: 05/03/18 10:33 Dose: 20 mg Sodium Chloride ([place] Nasal [place] 0.65%) 1 ml EA NARE TID [facility] Last Admin: 05/02/18 20:02 Dose: Not Given Throat Lozenges (Cepastat Lozenges) 1 chao PO Q4H PRN PRN Reason: Sore Throat Last Admin: 04/28/18 20:37 Dose: 1 chao
[2018-05-03] MEDS: Acetaminophen 650 MG/20.3 ML UDCUP PO PRN ×2 (11:24→17:13)
[2018-05-03 13:17] VITALS: BMI 20.2
[2018-05-03] MEDS: clonazePAM 0.5 MG TAB PO PRN (20:32)
[2018-05-04] MEDS: Arformoterol 15 MCG/2 ML NEB NEB SCH (07:49)
[2018-05-04] MEDS: Budesonide 0.5 MG/2 ML NEB INH SCH (07:49)
[2018-05-04] MEDS: Fluconazole 100 MG TAB PO SCH (08:41)
[2018-05-04] MEDS: Cefdinir 300 MG CAP PO SCH (08:41)
[2018-05-04] MEDS: Sodium Chloride 0.65% Nasal 44 ML BOT EA NARE SCH ×2 (08:42→15:48)
[2018-05-04] MEDS: predniSONE 20 MG TAB PO SCH (08:42)
[2018-05-04] MEDS: Enoxaparin Sodium 40 MG/0.4 ML SYRINGE SC SCH (08:42)
--- NOTE | 2018-05-04 09:48 | PRG ---
DATE OF SERVICE: 05/04/2018 SUBJECTIVE: The patient remains in the IMCU. He is talking more deliberately today. He has not had to use the Trilogy ventilator. OBJECTIVE: VITAL SIGNS: On exam, his temperature is 98.6, pulse 92, respirations 28, O2 saturation 99% on 4 L, and blood pressure 93/63. HEENT: Unchanged. NECK: No JVD. LUNGS: Diminished, but clear breath sounds. CARDIAC: S1 and S2, regular. ABDOMEN: Soft. EXTREMITIES: No edema. ASSESSMENT: 1. End-stage chronic obstructive pulmonary disease. 2. Chronic obstructive pulmonary disease with exacerbation. PLAN: The patient wants to go home and I really have no issue with that. We have tried to address the code status, but he continues to be insisting on being a full code. I do think he would benefit from some home health. His steroids need to be continued indefinitely at a prednisone dose of 20 mg twice daily. His antibiotic can be stopped after 10 full days of therapy between hospital and home. Fluconazole can probably be stopped at anytime. Job ID: [id number]
--- NOTE | 2018-05-04 13:08 | DIS ---
DATE OF ADMISSION: 04/20/2018 DATE OF DISCHARGE: 05/04/2018 PRIMARY CARE PHYSICIAN: Dr. Tidwell. DISCHARGE DISPOSITION: Home. PRIMARY DISCHARGE DIAGNOSES: 1. Acute on chronic respiratory failure with hypoxia and hypercapnia. 2. End-stage chronic obstructive pulmonary disease with chronic obstructive pulmonary disease exacerbation. 3. Aspiration pneumonia. 4. Septic shock on admission, resolved. SECONDARY DISCHARGE DIAGNOSES: 1. Physical deconditioning. 2. Former smoker. 3. End-stage chronic obstructive pulmonary disease. 4. Compression fracture of thoracic vertebrae. 5. Anxiety and depression. 6. Protein-calorie malnutrition, moderate. PRIMARY PROCEDURE/OPERATION: Endotracheal intubation and mechanical ventilatory support. RADIOLOGICAL INVESTIGATION: Abdomen and pelvis CT scan, CT angiography, several chest x-rays, initial presentation and radiology report were consistent with aspiration pneumonia. LABORATORY DATA: Significant labs; WBC 13.3, hemoglobin 12.9, platelets 291. PCO2 of 71.1, pH 7.38. Sodium 139, potassium 4.3, BUN 16, creatinine 0.50, calcium 8.5, magnesium 2.0. Urinalysis unremarkable. Blood culture was contaminated and positive for Corynebacterium. Urine culture negative. DISCHARGE MEDICATIONS: 1. Brovana 15 mcg nebulization b.i.d. 2. Aspirin 81 mg daily. 3. Pulmicort nebulization twice daily. 4. Clonazepam 0.5 mg p.o. b.i.d. p.r.n. 5. DuoNeb q.4 hourly. 6. Ventolin nebulization q.2 hourly p.r.n. 7. Omnicef 600 mg p.o. daily for 7 more days. 8. Diflucan 100 mg p.o. daily for 7 days. 9. Protonix 40 mg daily. 10. Prednisone 20 mg p.o. b.i.d. CONTRAINDICATION: None. CODE STATUS: Full code. INPATIENT PROMOTIONAL MARKETING AGENT: Dr. Tidwell was following while in hospital. TEST RESULTS PENDING ON DISCHARGE: None. ALLERGIES: NO KNOWN DRUG ALLERGIES. DISCHARGE PLAN: 1. Posthospital, the patient is discharged to home with his request. 2. The patient will follow up with Dr. Tidwell as instructed. HOSPITAL COURSE: A 72-year-old male who was admitted by me on April 20, 2018. Please see my HPI for further details. On admission, the patient was having septic shock. He was in respiratory failure, and based on investigation with a chest x-ray and CT of abdomen and pelvis sent, the patient was found with aspiration pneumonia. He was full code. He required intubation. He was admitted to CCU. Pulmonary group was managing ventilator. The patient was treated with broad-spectrum antibiotic therapy. He was optimally treated with Brovana nebulizer, DuoNeb, Pulmicort therapy. Subsequently, the patient was extubated. Before intubation in the emergency room, the patient was given trial of BiPAP, but the patient did not tolerate it and that is why he required intubation. After extubation, the patient also required BiPAP. The patient was transferred to medical [facility], where we observed for several days. This patient was not improving in his condition overall. He was in severe respiratory distress even after extubation. His physical capacity was significantly reduced. Even with little exertion, he was getting tachycardic, tachypneic. This patient does not have any reserve in his body and he does not want to go for any hospice care because he had bad experience with hospice in the past. While in hospital, Palliative Care was following. He remained full code while in hospital. Despite hospital stay of almost 15 days for his COPD, he did not improve well and he was complaining of dysphagia and we presumed from [place] and that is why we treated with Diflucan with some clinical improvement. At this point, the patient does not have any clinical improvement. He is still not up to his baseline level, but the patient requested to go home. I spoke with Dr. Tidwell and he okayed with discharge because there is nothing else can be done and this patient is not wanted to go with the home hospice. We are arranging his transport through the ambulance. Based on his request, we are discharging this patient home. This patient is very high risk for recurrent admission because of his terminal COPD and his long-term prognosis is extremely poor. The patient also understands this and his also expressed understanding about his prognosis. DISCHARGE PHYSICAL EXAMINATION: VITAL SIGNS: Today, the patient is seen and examined at bedside. Currently, temperature 98.9, pulse 105, respiratory rate 22, saturation 95% on 4 L, and blood pressure 96/59. Weight 123 pounds. GENERAL: The patient is currently alert and awake, in no obvious acute distress. HEENT: Head; normocephalic, atraumatic. LUNGS: Air entry reduced significantly bilaterally. CARDIAC: S1 and S2 regular, tachycardia. No murmur. No gallop. No rub. ABDOMEN: Soft and benign. EXTREMITIES: No edema. NEUROLOGIC: Nonfocal examination. DISCHARGE MEDICATION: Reconciliation done. TOTAL TIME SPENT: On discharge day, 31 minutes. Job ID: [id number]
--- NOTE | 2018-05-04 13:14 | PDOC.PN ---
- Subjective Encounter Start Date: 05/04/18 Encounter Start Time: 13:12 Patient seen and examined. No new complaints. No overnight events - Objective Resuscitation Status - Order Detail: 04/20/18 12:07 Resuscitation Status Routine Resuscitation Status: FULL: Full Resuscitation Discussed with: Dr. Tidwell discussed with pts . She wants one round of CPR MAR Reviewed: Yes Vital Signs & Weight: Vital Signs (12 hours) Temp Pulse Resp BP Pulse Ox 05/04/18 11:18 105 H 22 H 95 05/04/18 10:44 98.9 F 104 H 22 H 96/59 L 97 05/04/18 07:50 99 05/04/18 07:46 93 28 H 99 05/04/18 07:44 100 05/04/18 07:21 98.6 F 89 18 93/63 100 05/04/18 03:40 97.8 F 96 22 H 107/65 100 Weight Admit Weight 127 lb 3.307 oz Weight 123 lb Most Recent Monitor Data Heart Rate from ECG 109 NIBP 123/72 NIBP BP-Mean 89 Respiration from ECG 21 SpO2 99 I&O: 05/03/18 05/04/18 05/05/18 06:59 06:59 06:59 Intake Total 600 1440 240 Output Total 675 1500 Balance -75 -60 240 Result Diagrams: 04/29/18 05:39 04/29/18 05:39 EKG Reviewed by me: Yes Phys Exam - Physical Examination Constitutional: NAD HEENT: PERRLA, moist MMs, sclera anicteric Neck: no JVD, supple Respiratory: no wheezing, no rhonchi Cardiovascular: RRR, no significant murmur, no rub Gastrointestinal: soft, non-tender, no distention Musculoskeletal: no edema, pulses present Neurological: moves all 4 limbs Lymphatic: no nodes Psychiatric: normal affect Skin: no rash, normal turgor Dx/Plan (1) Acute on chronic respiratory failure with hypoxia and hypercapnia Code(s): J96.21 - ACUTE AND CHRONIC RESPIRATORY FAILURE WITH HYPOXIA; J96.22 - ACUTE AND CHRONIC RESPIRATORY FAILURE WITH HYPERCAPNIA Status: Acute (2) COPD exacerbation Code(s): J44.1 - CHRONIC OBSTRUCTIVE PULMONARY DISEASE W (ACUTE) EXACERBATION Status: Acute (3) Pneumonia, aspiration Code(s): J69.0 - PNEUMONITIS DUE TO INHALATION OF FOOD AND VOMIT Status: Acute (4) Septic shock Code(s): A41.9 - SEPSIS, UNSPECIFIED ORGANISM; R65.21 - SEVERE SEPSIS WITH SEPTIC SHOCK Status: Resolved (5) Anxiety and depression Code(s): F41.9 - ANXIETY DISORDER, UNSPECIFIED; F32.9 - MAJOR DEPRESSIVE DISORDER, SINGLE EPISODE, UNSPECIFIED Status: Chronic (6) Compression fracture of thoracic vertebra Code(s): S22.000A - WEDGE COMPRESSION FRACTURE OF UNSP THORACIC VERTEBRA, INIT Status: Chronic (7) End stage chronic obstructive pulmonary disease Code(s): J44.9 - CHRONIC OBSTRUCTIVE PULMONARY DISEASE, UNSPECIFIED Status: Chronic (8) Former smoker Status: Chronic (9) Physical deconditioning Code(s): R53.81 - OTHER MALAISE Status: Chronic Comment: (10) Dysphagia Code(s): R13.10 - DYSPHAGIA, UNSPECIFIED Status: Acute - Plan cont current plan of care, licensed social worker * medication reviewed as below * symptomatic treatment * will arrange bedside commode as he will need it at home * see discharge mikhail. Review of Systems - Review of Systems Respiratory: Cough, Shortness of Breath, SOB with Excertion. negative: Dry, Hemoptysis, Pleuritic Pain, Sputum, Wheezing Cardiovascular: negative: chest pain, palpitations, orthopnea, paroxysmal nocturnal dyspnea, edema, light headedness, other Gastrointestinal: negative: Nausea, Vomiting, Abdominal Pain, Diarrhea, Constipation, Melena, Hematochezia, Other Genitourinary: negative: Dysuria, Frequency, Incontinence, Hematuria, Retention , Other Musculoskeletal: negative: Neck Pain, Shoulder Pain, Arm Pain, Back Pain, Hand Pain, Leg Pain, Foot Pain, Other Skin: negative: Rash, Lesions, Alonso, Bruising, Other - Medications/Allergies Allergies/Adverse Reactions: Allergies Allergy/AdvReac Type Severity Reaction Status Date / Time No Known Allergies Allergy Verified 06/20/17 03:47 Medications: Current Medications Acetaminophen (Tylenol Elixir) 650 mg PO Q6H PRN PRN Reason: Headache/Fever or Pain Last Admin: 05/03/18 17:13 Dose: 650 mg Albuterol/Ipratropium (Duoneb) 3 ml NEB [id number] Last Admin: 05/04/18 11:18 Dose: 3 ml Arformoterol Tartrate (Brovana) 15 mcg NEB BID-RT [facility] Last Admin: 05/04/18 07:49 Dose: 15 mcg Aspirin (Aspirin Chewable) 81 mg PO DAILY [facility] Last Admin: 05/04/18 08:41 Dose: 81 mg Budesonide (Pulmicort Neb Solution) 0.5 mg INH BID-RT [facility] Last Admin: 05/04/18 07:49 Dose: 0.5 mg Cefdinir (Omnicef) 600 mg PO DAILY [facility] Last Admin: 05/04/18 08:41 Dose: 600 mg Clonazepam (Klonopin) 0.5 mg PO TID PRN PRN Reason: Anxiety Last Admin: 05/03/18 20:32 Dose: 0.5 mg Al Hydroxide/Mg Hydroxide 60 ml/ Diphenhydramine HCl 150 mg / Lidocaine HCl 60 ml/Nystatin 6,000,000 units 0 ml SSW PRN PRN PRN Reason: Mouth Irritation Last Admin: 05/02/18 18:15 Dose: 10 ml Enoxaparin Sodium (Lovenox) 40 mg SC 0900 [facility] Last Admin: 05/04/18 08:42 Dose: 40 mg Fluconazole (Diflucan) 100 mg PO DAILY [facility] Last Admin: 05/04/18 08:41 Dose: 100 mg Ccu Electrolyte (Replacement Protocol) 0 each FS PRN PRN PRN Reason: FOR ELECTROLYTE REPLACEMENT Pantoprazole Sodium (Protonix) 40 mg PO DAILY [facility] Last Admin: 05/04/18 08:42 Dose: 40 mg Prednisone (Prednisone) 20 mg PO BID [facility] Last Admin: 05/04/18 08:42 Dose: 20 mg Sodium Chloride ([place] Nasal [place] 0.65%) 1 ml EA NARE TID [facility] Last Admin: 05/04/18 08:42 Dose: 1 spr Throat Lozenges (Cepastat Lozenges) 1 chao PO Q4H PRN PRN Reason: Sore Throat Last Admin: 04/28/18 20:37 Dose: 1 chao
[2018-05-04 15:19] VITALS: BP 98/63; TEMP 98.3
== END 2018-05-04 18:03 | disposition home health service (06) | DRG 871 ==
LOC: ERS 09:40 → CCU 12:06 → IMCU/EMU 04-25 10:37
PROVIDERS: ADMIT Internal Medicine; ATTEND Internal Medicine
PROC: 5A1945Z Respiratory Ventilation, 24-96 Consecutive Hours (ICD-10-PCS; principal; 2018-04-20)
PROC: 0BH17EZ Insertion of Endotracheal Airway into Trachea, Via Natural or Artificial Opening (ICD-10-PCS; 2018-04-20)
PROC: 06HM33Z Insertion of Infusion Device into Right Femoral Vein, Percutaneous Approach (ICD-10-PCS; 2018-04-20)
PROC: 5A09357 Assistance with Respiratory Ventilation, Less than 24 Consecutive Hours, Continuous Positive Airway Pressure (ICD-10-PCS; 2018-04-24)
DX: A41.9 Sepsis, unspecified organism (principal); J69.0 Pneumonitis due to inhalation of food and vomit; R65.21 Severe sepsis with septic shock; J96.21 Acute and chronic respiratory failure with hypoxia; J44.1 Chronic obstructive pulmonary disease with (acute) exacerbation; B37.0 Candidal stomatitis; E44.0 Moderate protein-calorie malnutrition; Z68.1 Body mass index [BMI] 19.9 or less, adult; Z51.5 Encounter for palliative care; F43.10 Post-traumatic stress disorder, unspecified; F41.9 Anxiety disorder, unspecified; Z99.81 Dependence on supplemental oxygen; K21.9 Gastro-esophageal reflux disease without esophagitis; Z87.891 Personal history of nicotine dependence; F32.9 Major depressive disorder, single episode, unspecified; Z79.82 Long term (current) use of aspirin; Z79.52 Long term (current) use of systemic steroids; Z79.899 Other long term (current) drug therapy
CPT/HCPCS: 31500; 36415; 36416; 36556; 51702; 71045; 71275; 74177; 80048; 80053; 81003; 81015; 82553; 82805; 83605; 83735; 83880; 84100; 84484; 85025; 87040; 87086; 93005; 94002; 94003; 94640; 96361; 96365; 96366; 96367; 96368; 96375; A4216; C9113; G8978-GP-CL; G8979-GP-CJ; G8987-GO-CL; G8988-GO-CJ; J0131; J0171; J1120; J1450; J1650; J1940; J1956; J2060; J2250; J2543; J2920; J3010; J3370; J3411; J3475; J7050; J7506; J7620; J7626

== ENCOUNTER 2018-07-26 13:54 | Outpatient (CLI) | payer MEDICARE, BC ==
--- NOTE | 2018-07-26 15:33 | CT ---
MRI LUMBAR SPINE: History: Low back pain for months. Technique: Axial images are obtained with coronal and sagittal reconstructions. FINDINGS: T12-L1: Vacuum disc changes seen. There is approximately 30% compression fracture of the upper margin of the L1 vertebral body. This appears to be acute. No evidence of retropulsed fragments seen into t he spinal canal. There is also a Schmorl's node seen in the inferior endplate of T12. L1-2: Unremarkable. L2-3: Vacuum disc changes seen at this level. There is minimal facet hypertrophy. Facet and ligamentu m flavum hypertrophy is seen. This results in mild central and lateral recess stenosis. L3-4: Vacuum disc changes seen at this level. There is a broad based disc bulge with bilateral facet and ligamentum flavum hypertrophy resulting in moderate to severe central and lateral recess stenosis . Moderate left and mild right sided neural foraminal narrowing also present due to broad based disc bulge and facet hypertrophy. L4-5: There is a broad based disc bulge with bilateral facet and ligamentum flavum hypertrophy. This results in moderate to severe central and lateral recess stenosis. There is severe bilateral neural f oraminal narrowing due to broad based disc bulges as well as the facet and ligamentum flavum hypertro phy at this level. L5-S1: There is a broad based disc bulge centrally. This does not significantly compress the thecal s ac. There is moderate to severe right and moderate left sided neural foraminal narrowing due to facet hypertrophy as well as the broad based disc bulge extending into the neural foramen. IMPRESSION: Multilevel disc degenerative changes and spinal stenosis and neural foraminal narrowing at L3-4 and L 4-5. There is acute fracture of the superior endplate of L1 vertebral level. POS: [facility]
== END 2018-07-26 13:55 | disposition home or self-care (01) ==
LOC: CT 13:54
PROVIDERS: ATTEND Anesthesiology Pain Medicine
DX: S32.019A Unspecified fracture of first lumbar vertebra, initial encounter for closed fracture (principal); M51.36 Other intervertebral disc degeneration, lumbar region; M48.061 Spinal stenosis, lumbar region without neurogenic claudication
CPT/HCPCS: 72131

== ENCOUNTER 2018-08-24 11:17 | Outpatient (CLI) | payer MEDICARE, BC ==
--- NOTE | 2018-08-24 11:46 | RAD ---
FExam: Left RIBS 2 views COMPARISON: None HISTORY: Osteitis deformans. Pain. FINDINGS: No fracture. No cortical irregularity or periosteal reaction IMPRESSION: No fracture.
--- NOTE | 2018-08-24 11:46 | RAD ---
FExam: Right ribs 2 views HISTORY: Osteitis deformans. Pain. Tenderness. Comparison: None FINDINGS: No fracture. No cortical irregularity or periosteal reaction. IMPRESSION: Unremarkable right ribs 2 views.
--- NOTE | 2018-08-24 11:48 | RAD ---
F2 views of the chest: 08/24/2018 COMPARISON: 04/24/2018 HISTORY: Left-sided pain and tenderness for 2 weeks, COPD FINDINGS: There is no pneumothorax. There is mild elevation of right hemidiaphragm. Coarse increased linear interstitial density noted. Old right-sided rib fractures are present. There is atherosclerotic calcification of the aortic arch. No focal consolidation or alveolar edema. There are numerous poorly assessed fractures involving numerous mid and lower thoracic vertebral bodi es. IMPRESSION: Interstitial prominence and pulmonary hyperinflation consistent with the provided history of COPD. Numerous poorly assessed thoracic spine fractures. Multiple old right-sided rib fractures.
== END 2018-08-24 11:18 | disposition home or self-care (01) ==
LOC: BICRAD 11:17
PROVIDERS: ATTEND Internal Medicine
DX: J44.9 Chronic obstructive pulmonary disease, unspecified (principal); M88.88 Osteitis deformans of other bones; R07.89 Other chest pain; S22.009A Unspecified fracture of unspecified thoracic vertebra, initial encounter for closed fracture; R91.8 Other nonspecific abnormal finding of lung field
CPT/HCPCS: 71046

== ENCOUNTER 2020-04-05 18:51 | Inpatient (IN) | payer MEDICARE, BC ==
[2020-04-05] MEDS ORDERED: Dexamethasone 10 MG/ML VIAL ONE (19:16)
[2020-04-05 19:26] LABS: #Eosinphils 0.1 thou/uL (0.0-0.7); #Lymphocytes 0.6 thou/uL (1.20-3.40); #Monocytes 1.1 thou/uL (0.11-0.59); #Neutrophils 7.1 thou/uL (1.40-6.50); %Basophils 0.1 % (0.0-1.0); %Eosinophils 0.6 % (0.0-10.0); %Lymphocytes 6.8 % (21.0-51.0); %Monocytes 12.6 % (0.0-10.0); %Neutrophils 79.9 % (42.0-75.0); Hemoglobin 13.3 g/dL (14.0-18.0); Mean Corpuscular HGB CONC 32.9 g/dL (32.0-36.0); Mean Corpuscular Hemoglobin 32.5 pg (27.0-31.0); Mean Corpuscular Volume 98.6 fL (78.0-98.0); Mean Platelet Volume 7.6 fL (7.4-10.4); Platelet Count 260 thou/uL (130-400); RBC Distribution Width 13.8 % (11.5-14.5); White Blood Cell (WBC) Count 8.9 thou/uL (4.8-10.8)
[2020-04-05 19:47] LABS: ALT (SGPT) 22 U/L (8-55); AST (SGOT) 25 U/L (5-34); Albumin 3.9 g/dL (3.4-4.8); Alkaline Phosphatase 61 U/L (40-110); BUN (Urea Nitrogen) 12 mg/dL (8.4-25.7); Bilirubin, Total 0.5 mg/dL (0.2-1.2); Calc. Creatinine Clearance 0 mL/min (70-130); Calcium 9.3 mg/dL (7.8-10.44); Estimated GFR-MDRD Greater than 90; Globulin 2.6 g/dL (2.4-3.5); Glucose 112 mg/dL (83-110); Protein, Total 6.5 g/dL (5.8-8.1)
[2020-04-05 19:48] LABS: INR-International Normal Ratio 0.9; PTT 25.2 sec (22.9-36.1); Prothrombin Time 12.2 sec (12.0-14.7)
[2020-04-05 19:56] LABS: Anion Gap 17 mmol/L (10-20); Carbon Dioxide 38 mmol/L (23-31); Chloride 91 mmol/L (98-107); Potassium 4.5 mmol/L (3.5-5.1); Sodium 141 mmol/L (136-145)
--- NOTE | 2020-04-05 21:11 | PDOC.BPN ---
- Brief Progress Note Encounter Date: 04/05/20 [id number] HP
[2020-04-05] MEDS ORDERED: Enoxaparin Sodium 60 MG/0.6 ML SYRINGE ONE (21:22)
--- NOTE | 2020-04-05 21:22 | RAD ---
ONE VIEW CHEST: Comparison: 04-24-2018 History: Chest pain x 2 days. Patient uses oxygen at home. FINDINGS: Normal cardiac silhouette. There is atherosclerosis of the aorta. Pulmonary vessels and hilum are nor mal. Costophrenic angles are clear. Chronic changes. Lung volumes are diminished. There is no pneumot horax or acute osseous abnormalities. There is diffuse bone demineralization. IMPRESSION: 1. Atherosclerosis. Chronic changes. 2. Persistent elevation of the right hemidiaphragm. POS: [facility]
--- NOTE | 2020-04-05 21:44 | ULT ---
EXAM: Right lower extremity venous ultrasound HISTORY: Right lower extremity pain and edema COMPARISON: None TECHNIQUE: Multiplanar grayscale and color Doppler images were obtained in a right lower extremity ve nous ultrasound. Spectral analysis of the Doppler waveforms were performed. FINDINGS: The common femoral vein, profunda femoral vein, superficial femoral vein, and popliteal vei n are normal in appearance without visible thrombus. These vessels demonstrate normal compression, flow, and augmentation. The posterior tibial vein and greater saphenous vein are patent without evidence of thrombus. IMPRESSION: No evidence of DVT.
[2020-04-05] MEDS ORDERED: Famotidine/PF 20 mg/2ml Vial ONE (22:33)
[2020-04-05] MEDS ORDERED: cefTRIAXone\\ROCEPHIN 2 GM VIAL ONE (22:33)
[2020-04-05] MEDS: cefTRIAXone\\ROCEPHIN 2 GM in Sodium Chloride 0.9% 100 ML IVPB SCH (22:44)
[2020-04-05] MEDS: Famotidine/PF 20 mg/2ml Vial SLOW IVP SCH (22:44)
--- NOTE | 2020-04-05 23:38 | HP ---
CHIEF COMPLAINT: Shortness of breath. HISTORY OF PRESENT ILLNESS: Mr. Montelongo is a 74-year-old male with past medical history of severe COPD, chronic respiratory failure on home oxygen/p.r.n. CPAP, among others, presents to the emergency room with shortness of breath associated with chest pain. The patient has chronic shortness of breath, but it got worse today. Also, he had chest pain/discomfort. The patient, at baseline, is on 5 L/minute nasal cannula. Workup in the emergency room including initial troponin showed troponin 0.012. The patient was tachycardic. EKG shows sinus tachycardia. The patient was placed on BiPAP 14/6. It was noted also patient has a right leg swelling, which has been going on for few days as per . Discussed the case with ED and advised to give one dose of Lovenox and get a venous ultrasound of the right lower extremity to rule out DVT. The patient is being admitted to hospital for further management. PAST MEDICAL HISTORY: As mentioned above in the history of present illness. PAST SURGICAL HISTORY: 1. Cataract surgery. 2. Microscopic knee surgery. PAST PSYCHIATRIC HISTORY: PTSD. SOCIAL HISTORY: He drinks socially. He has a history of smoking, but he cannot remember when did he quit. FAMILY HISTORY: Noncontributory. HOME MEDICATIONS: Please see home medication reconciliation form for updated medications. ALLERGIES: NO KNOWN ALLERGIES. REVIEW OF SYSTEMS: Review of 14 systems negative except what is mentioned in the history of present illness. PHYSICAL EXAMINATION: GENERAL: The patient is awake, alert, in moderate respiratory distress on BiPAP 14/6. VITAL SIGNS: Blood pressure 112/59, pulse is 93, respiratory rate is 30. Oxygen saturation 100% on BiPAP and temperature 97.9. HEAD AND NECK: Normocephalic, atraumatic. NECK: Supple. CHEST: Decreased air entry bilaterally, respirations are labored. HEART: S1, S2. Regular. ABDOMEN: Soft, nontender. NEUROLOGIC: Awake, alert. Moving extremities. PSYCH: Unable to assess. EXTREMITIES: Right leg is swollen, warm with mild erythema to the anterior chin. GENITOURINARY: No suprapubic tenderness. No flank tenderness. LABORATORY DATA: As mentioned above in history of present illness. Chest x-ray was reported as no acute finding. Venous Doppler of the right lower extremity ordered, awaiting the results. ASSESSMENT: 1. Acute on chronic respiratory failure. 2. Chronic obstructive pulmonary disease with exacerbation. 3. Chest pain, rule out acute coronary syndrome. 4. Right leg swelling, rule out deep vein thrombosis. PLAN: 1. Admit to IMCU. 2. Continue with BiPAP. 3. Bronchodilator scheduled and as needed. 4. IV steroids. 5. Empiric IV antibiotics. 6. Venous Doppler of the right leg is being ordered to rule out DVT results. 7. We will give the patient one dose of Lovenox 1 mg/kg now. Reassess in the a.m. after the venous Doppler results of the right leg. 8. Reconcile home medications. 9. DVT prophylaxis as appropriate. 10. Consult the patient's structures mechanic for evaluation and further management. 11. Expected length of stay, 2 midnights or more. Case discussed with the patient, family, and ED physician. Job ID: [id number]
[2020-04-05 23:44] LABS: Troponin I Less than 0.010 ng/mL (< 0.028)
[2020-04-06] MEDS ORDERED: methylPREDNISolone Sod Succ 40 MG VIAL ONE ×2 (00:36→10:43)
[2020-04-06] MEDS: methylPREDNISolone Sod Succ 40 MG VIAL IVP SCH ×5 (00:43→23:29)
[2020-04-06] MEDS ORDERED: Acetaminophen 325 MG TAB ONE ×2 (01:15→11:53)
[2020-04-06] MEDS ORDERED: Lorazepam 2 MG/ML VIAL SLOW IVP SCH (03:45)
[2020-04-06] MEDS ORDERED: Lorazepam 2 MG/ML VIAL ONE (03:48)
[2020-04-06 05:34] LABS: SARS-CoV-2 MS2 Positive; SARS-CoV-2 N Gene Negative; SARS-CoV-2 S Gene Negative; SARS-CoV-2 by NAA Not Detected (NotDetected); SARS-CoV-2 orf1ab Negative
[2020-04-06] MEDS ORDERED: Iopamidol-370 76% 500 ML 1 ML ONE (09:01)
--- NOTE | 2020-04-06 09:35 | PDOC.HOSPP ---
- Subjective Encounter Date: 04/06/20 Encounter Time: 11:00 Subjective: Patient report SOB is unchanged. Currently on Bipap but wants to try off of it so he can see if he will be able to eat. Chest pain resolved but still with JABARI pain. CTA chest negative for PE. - Objective Vital Signs & Weight: Vital Signs (12 hours) Pulse Resp Pulse Ox 04/06/20 01:21 77 18 100 Result Diagrams: 04/05/20 19:11 04/05/20 19:11 Hospitalist ROS - Review of Systems Constitutional: denies: fever, chills Respiratory: reports: cough, shortness of breath, SOB with excertion Cardiovascular: denies: chest pain, palpitations Gastrointestinal: reports: abdominal pain. denies: nausea, vomiting - Medication Medications: Active Medications Generic Name Dose Route Start Last Admin Trade Name Freq PRN Reason Stop Dose Admin Albuterol/Ipratropium 3 ml 04/06/20 01:00 04/06/20 01:21 Ipratropium/Albuterol Sulfate 3 Ml Neb NEB 3 ml [id number] MK Administration Famotidine 20 mg 04/05/20 21:00 04/05/20 22:44 Famotidine/Pf 20 Mg/2ml Vial SLOW IVP 20 mg Q12HR MK Administration Ceftriaxone Sodium 2 gm/ 100 mls @ 200 mls/hr 04/05/20 21:00 04/05/20 22:44 Sodium Chloride IVPB 100 mls Q24HR MK Administration Methylprednisolone Sodium Succinate 40 mg 04/05/20 23:59 04/06/20 00:43 Methylprednisolone Sod Succ 40 Mg Vial IVP 40 mg Q6HR MK Administration Sodium Chloride 10 ml 04/05/20 21:00 04/05/20 22:44 Flush - Normal Saline 10 Ml Syringe IVF 10 ml Q12HR MK Administration - Exam General Appearance: awake alert General - other findings: mild increase WOB on the Bipap ENT: moist mucosa Heart: RRR, no murmur, no gallops, no rubs Respiratory: no wheezes Respiratory - other findings: poor air movement bilaterally, mild increase WOB Gastrointestinal: soft, non-tender, non-distended, normal bowel sounds Psychiatric: normal affect, normal behavior, A&O x 3 Hosp A/P (1) Acute on chronic respiratory failure with hypoxia and hypercapnia Code(s): J96.21 - ACUTE AND CHRONIC RESPIRATORY FAILURE WITH HYPOXIA; J96.22 - ACUTE AND CHRONIC RESPIRATORY FAILURE WITH HYPERCAPNIA Status: Acute (2) COPD exacerbation Code(s): J44.1 - CHRONIC OBSTRUCTIVE PULMONARY DISEASE W (ACUTE) EXACERBATION Status: Acute (3) Elevated d-dimer Code(s): R79.89 - OTHER SPECIFIED ABNORMAL FINDINGS OF BLOOD CHEMISTRY Status: Acute (4) Chest pain, rule out acute myocardial infarction Code(s): R07.9 - CHEST PAIN, UNSPECIFIED Status: Acute (5) Edema of right lower extremity Code(s): R60.0 - LOCALIZED EDEMA Status: Acute Plan: U/S negative for DVT (6) Anxiety and depression Code(s): F41.9 - ANXIETY DISORDER, UNSPECIFIED; F32.9 - MAJOR DEPRESSIVE DISORD ER, SINGLE EPISODE, UNSPECIFIED Status: Chronic - Plan Patient doing better on BiPAP. Pulmonology consult. CTA neg for PE. Continue steroids and abx. Patient has pulled out his IV twice. Was asking to leave AMA but now agreeable to stay. Will change steroids to oral.
--- NOTE | 2020-04-06 10:22 | CT ---
CTA Angio Chest W Con History: Shortness of breath Comparison: Radiograph prior day Findings: CT angiogram chest performed after the intravenous administration of contrast. 3-D renderin g provided. The aortic contour is tortuous. Moderate vascular calcifications. No proximal segmental pulmonary arterial filling defect. No mediastinal adenopathy. Moderate-severe centrilobular emphysema. No pneumothorax. No effusion. Mild right basilar atelectasis with right hemidiaphragm elevation. Likely focal reactive scar along the superior segment right lower lobe abutting the vertebral body at the T7 level axial image 51. There are compression deformities throughout the thoracic spine. Bones are demineralized. Exaggerated thoracic kyphosis. No high-grade retropulsion. No acute displaced rib fracture. Impression: 1. No pulmonary embolism. 2. Severe emphysema. 3. Likely reactive atelectasis/scar along the superior segment right lower lobe abutting the pleura a xial image 51 measuring up to 17 mm although underlying malignancy cannot be totally excluded especially given background emphysema. This abuts the posterior visceral pleura and adjacent vertebra l body. Follow-up CT chest in 3-6 months is recommended.
[2020-04-06] MEDS ORDERED: Famotidine/PF 20 mg/2ml Vial ONE (10:43)
[2020-04-06] MEDS ORDERED: Azithromycin 250 MG TAB ONE (10:43)
[2020-04-06] MEDS: Azithromycin 250 MG TAB PO SCH (11:13)
[2020-04-06] MEDS ORDERED: predniSONE 50 MG TAB PO SCH (11:30)
[2020-04-06] MEDS: Enoxaparin Sodium 40 MG/0.4 ML SYRINGE SC SCH (11:53)
[2020-04-06 11:56] LABS: Actual Bicarbonate (HCO3a) 38.1 mEq/L (22-28); Analyzer IN Cardio ER; Base Excess (BEa) 10.4 mEq/L (-2.0 to +3.0); Calcium, Ionized (arterial) 1.15 mmol/L (1.12-1.30); Carboxyhemoglobin (COHb) 0.2 gm% (0.0-3.0); Hemoglobin (Hb) 13.1 g/dL (14.0-18.0); Potassium - ABG Lab 4.24 mmol/L (3.70-5.30); pH, Arterial 7.38 (7.35-7.45)
[2020-04-06] MEDS: Acetaminophen 325 MG TAB PO PRN (12:01)
[2020-04-06 12:43] LABS: CO2 Tension 65.8 mmHg (35.0-45.0); Puncture Site LRA
[2020-04-06] MEDS ORDERED: predniSONE 20 MG TAB ONE (12:48)
[2020-04-06] MEDS ORDERED: Budesonide 0.5 MG/2 ML NEB NEB SCH (13:00)
[2020-04-06 17:25] VITALS: BMI 16.7
[2020-04-06] MEDS: Famotidine/PF 20 mg/2ml Vial SLOW IVP SCH (17:39)
[2020-04-06] MEDS: Arformoterol 15 MCG/2 ML NEB NEB SCH (19:00)
[2020-04-06] MEDS: Budesonide 0.5 MG/2 ML NEB NEB SCH (19:00)
[2020-04-06] MEDS: cefTRIAXone\\ROCEPHIN 2 GM in Sodium Chloride 0.9% 100 ML IVPB SCH (20:09)
[2020-04-07] MEDS: methylPREDNISolone Sod Succ 40 MG VIAL IVP SCH ×3 (06:00→17:54)
[2020-04-07] MEDS: Budesonide 0.5 MG/2 ML NEB NEB SCH ×2 (07:47→19:03)
[2020-04-07] MEDS: Arformoterol 15 MCG/2 ML NEB NEB SCH (07:47)
[2020-04-07] MEDS ORDERED: predniSONE 50 MG TAB PO SCH (08:00)
[2020-04-07] MEDS: Azithromycin 250 MG TAB PO SCH (10:16)
[2020-04-07] MEDS: Enoxaparin Sodium 40 MG/0.4 ML SYRINGE SC SCH (10:16)
[2020-04-07] MEDS ORDERED: Mag-Al Plus 1200 MG/1200 MG/120 MG/30 ML UDCUP PO PRN (10:45)
[2020-04-07] MEDS ORDERED: Magnesium 2 GM/50 ML 2 GM in Premix Bag 1 BAG IVPB SCH (12:30)
[2020-04-07] MEDS: Cefepime 1 GM in Sodium Chloride 0.9% 100 ML IVPB SCH (14:32)
--- NOTE | 2020-04-07 17:52 | PDOC.HOSPP ---
- Subjective Encounter Date: 04/07/20 Encounter Time: 11:00 Subjective: Patient seen for follow-up regarding COPD exacerbation. He reports feeling better. - Objective Vital Signs & Weight: Vital Signs (12 hours) Temp Pulse Pulse Pulse Resp BP BP 04/07/20 15:23 102 H 105 H 108/64 102/70 04/07/20 14:47 99 24 H 04/07/20 12:00 98.9 F 04/07/20 11:13 100 102 H 91/74 103/64 04/07/20 07:48 88 19 04/07/20 07:47 04/07/20 07:25 98.6 F Pulse Ox Pulse Ox Pulse Ox 04/07/20 15:23 97 98 04/07/20 14:47 95 04/07/20 12:00 04/07/20 11:13 96 97 04/07/20 07:48 100 04/07/20 07:47 100 04/07/20 07:25 Weight Admit Weight 113 lb Weight 113 lb Most Recent Monitor Data Heart Rate from ECG 105 NIBP 113/70 NIBP BP-Mean 84 Respiration from ECG 28 SpO2 88 I&O: 04/06/20 04/07/20 04/08/20 06:59 06:59 06:59 Intake Total 340 Output Total 250 Balance 90 Result Diagrams: 04/05/20 19:11 04/05/20 19:11 Additional Labs: Labs and MAR reviewed by me EKG Reviewed by me: Yes (Telemetry shows normal sinus rhythm) Hospitalist ROS - Review of Systems Constitutional: denies: fever, chills, sweats, weakness, malaise Respiratory: reports: cough, dry, SOB with excertion. denies: shortness of breath, hemoptysis, pleuritic pain, sputum, wheezing Cardiovascular: denies: chest pain, palpitations, orthopnea, paroxysmal noc. dyspnea, edema, light headedness Gastrointestinal: denies: nausea, vomiting, abdominal pain, diarrhea, constipation, melena, hematochezia Genitourinary: denies: dysuria, frequency, incontinence, hematuria, retention - Medication Medications: Active Medications Generic Name Dose Route Start Last Admin Trade Name Freq PRN Reason Stop Dose Admin Acetaminophen 650 mg 04/05/20 20:16 04/06/20 12:01 Acetaminophen 325 Mg Tab PO 650 mg Q4H PRN Administration Headache/Fever/Mild Pain (1-3) Albuterol/Ipratropium 3 ml 04/07/20 14:30 04/07/20 14:47 Ipratropium/Albuterol Sulfate 3 Ml Neb NEB 3 ml [id number] MK Administration Budesonide 0.5 mg 04/06/20 18:30 04/07/20 07:47 Budesonide 0.5 Mg/2 Ml Neb NEB 0.5 mg BID-RT MK Administration Enoxaparin Sodium 40 mg 04/06/20 09:00 04/07/20 10:16 Enoxaparin Sodium 40 Mg/0.4 Ml Syringe SC 40 mg 0900 MK Administration Cefepime HCl 1 gm/ Sodium 100 mls @ 200 mls/hr 04/07/20 13:00 04/07/20 14:32 Chloride IVPB 100 mls 0100,1300 MK Administration Methylprednisolone Sodium Succinate 40 mg 04/05/20 23:59 04/07/20 14:31 Methylprednisolone Sod Succ 40 Mg Vial IVP 40 mg Q6HR MK Administration Pantoprazole Sodium 40 mg 04/07/20 09:00 04/07/20 10:17 Pantoprazole 40 Mg Tab PO 40 mg DAILY MK Administration Sodium Chloride 10 ml 04/05/20 21:00 04/07/20 10:17 Flush - Normal Saline 10 Ml Syringe IVF 10 ml Q12HR MK Administration - Exam General Appearance: awake alert Eye: anicteric sclera ENT: normocephalic atraumatic, moist mucosa Neck: supple, symmetric, no thyromegaly, no lymphadenopathy Heart: RRR, no gallops, no rubs, normal peripheral pulses Respiratory: no rales, no ronchi, normal chest expansion, wheezes Gastrointestinal: soft, non-tender, non-distended, normal bowel sounds Extremities: no edema Skin: no rashes Psychiatric: normal affect, normal behavior, oriented to person, oriented to place Hosp A/P - Plan Assessment (1) COPD exacerbation Status: Acute (2) Acute on chronic respiratory failure with hypercapnia Status: Acute (3) Elevated d-dimer Code(s): R79.89 - OTHER SPECIFIED ABNORMAL FINDINGS OF BLOOD CHEMISTRY Status: Acute (4) Edema of right lower extremity Code(s): R60.0 - LOCALIZED EDEMA Status: Acute Plan: U/S negative for DVT (5) Anxiety and depression Code(s): F41.9 - ANXIETY DISORDER, UNSPECIFIED; F32.9 - MAJOR DEPRESSIVE DISORDER, SINGLE EPISODE, UNSPECIFIED Status: Chronic Plan Continue cefepime. No evidence of pulmonary embolism. No evidence of deep vein thrombosis. Continue intravenous steroids and inhaled bronchodilators. COVID-19 test is negative.
[2020-04-07] MEDS: Mometasone 200 MCG/Formoterol 5 MCG 120 PUFF INHALER INH SCH (19:03)
[2020-04-07] MEDS: clonazePAM 0.5 MG TAB PO SCH (20:00)
--- NOTE | 2020-04-08 00:03 | CON ---
DATE OF CONSULTATION: 04/07/2020 HISTORY OF PRESENT ILLNESS: Mr. Montelongo is a 74-year-old male. He has been seen by Dr. Tidwell in the past. He has a history of chronic obstructive pulmonary disease. His says that has been at baseline. He apparently developed abdominal pain, which is why he came to the emergency room. I saw him this morning. He denied abdominal discomfort. He had a CT angiogram of his chest, which did not really explain his abdominal discomfort. He says he is better today, but the nurse tells me when I got him up in a chair this morning, he began complaining of abdominal discomfort again. OBJECTIVE: VITAL SIGNS: Blood pressure 108/64, heart rate is 102, respiratory rates in the teens. GENERAL: He has BiPAP on and did not really want to take it off. He did eat breakfast this morning. LUNGS: Distant clear. HEART: Regular rhythm. ABDOMEN: Nontender when I examined him. EXTREMITIES: Without asymmetry or significant edema. There is no lab since . His bicarb was elevated at 38. Blood gas on showed pH 7.38, CO2 of 65, PO2 of 102, which is probably close to his baseline. IMPRESSION: Abdominal discomfort of unclear etiology. If it persists, GI consultation and abdominal CT scanning might be the next step, although with BiPAP, he would not be able to go down for the CAT scan. I would certainly doubt that he could drink the contrast. His chronic obstructive pulmonary disease appears to be at its baseline. This is a 70 min visit with greater than 50% of the time spent on the unit with coordination of care. Job ID: [id number] MTDD
[2020-04-08] MEDS: Cefepime 1 GM in Sodium Chloride 0.9% 100 ML IVPB SCH ×2 (00:11→14:09)
[2020-04-08] MEDS: methylPREDNISolone Sod Succ 40 MG VIAL IVP SCH ×4 (00:11→18:10)
[2020-04-08] MEDS: Mometasone 200 MCG/Formoterol 5 MCG 120 PUFF INHALER INH SCH ×2 (06:20→18:34)
[2020-04-08] MEDS: Budesonide 0.5 MG/2 ML NEB NEB SCH ×2 (06:22→18:34)
--- NOTE | 2020-04-08 07:29 | CON ---
DATE OF CONSULTATION: HISTORY OF PRESENT ILLNESS: A 74-year-old gentleman, who has been in the ER for almost 24 hours, came in on 04/05/2020, did not get to his room until early on 04/07/2020. He sees Dr. Tidwell in the office, presented with increasing shortness of breath, coughing, wheezing, and chest pain. His in the room states that he is having issues with his abdomen with radiation of the pain to his upper chest. Denies any sputum production, fever, or chills. On most days, he has very limited activity. PAST MEDICAL HISTORY: Pertinent for end-stage COPD, former smoker, and post-traumatic syndrome. He has had multiple intubations in the past. I had discussed with him and his at length, at this stage does not want to be intubated. Additionally, he has significant reflux, anxiety, positive cataract, and knee surgery. HOME MEDICATIONS: Includes; 1. Ibuprofen. 2. Symbicort twice a day. 3. Nebulizer. 4. Clonazepam 0.5. 5. Lasix 20. 6. Brovana. 7. Tylenol. ALLERGIES: NONE. REVIEW OF SYSTEMS: Otherwise, 10-point negative. PHYSICAL EXAMINATION: VITAL SIGNS: His saturations on the BiPAP at 95, pulse 100, blood pressure 108/80, and respirations 20 to 30. CHEST: Decreased breath sounds without any wheezing. CARDIAC: Normal S1 and S2. No gallops. ABDOMEN: No masses. LABORATORY DATA: His pO2 is 102, pCO2 is 65.8, pH 7.38, on 4 L nasal O2. His blood cultures growing Klebsiella pneumoniae. His chest x-ray actually did not show any infiltrates. CT chest was ordered, which otherwise did not show any masses or infiltrates. He has a chronically elevated right hemidiaphragm without any evidence of PE. ASSESSMENT AND PLAN: Klebsiella sepsis, probably pneumonia, COPD exacerbation, kyphoscoliosis, elevated diaphragm, and major anxiety. We will continue steroids and empiric antibiotics. We will notify Dr. Tidwell. Pulmonary/Critical Care will follow. Consultation note, 70 minutes, 50% direct patient care. Please note, I spoke to the patient and the . He does not want to be intubated at this stage. Job ID: [id number]
--- NOTE | 2020-04-08 09:15 | PRG ---
DATE OF SERVICE: 04/08/2020 SUBJECTIVE: The patient is doing poorly on BiPAP. OBJECTIVE: VITAL SIGNS: Temperature 97.4, pulse 89, blood pressure 110/59, and O2 saturation 100%. HEENT: Unremarkable. NECK: No JVD. LUNGS: Poor air movement. No wheezing. CARDIAC: S1 and S2. Regular. ABDOMEN: Soft and nontender. EXTREMITIES: Severe muscle wasting. LABORATORY DATA: No labs were done today. ASSESSMENT: 1. End-stage chronic obstructive pulmonary disease. 2. Chronic hypoxic and hypercapnic respiratory failure. PLAN: The patient is continuing antibiotics, nebulization treatments, anxiolytics, steroids, and BiPAP. And all practicality, he needs to be on hospice, but he will probably refuse to go that route. Job ID: [id number]
[2020-04-08] MEDS: clonazePAM 0.5 MG TAB PO SCH ×2 (10:15→21:02)
[2020-04-08] MEDS: Enoxaparin Sodium 40 MG/0.4 ML SYRINGE SC SCH (10:16)
--- NOTE | 2020-04-08 12:09 | PQF ---
CLINICAL DOCUMENTATION CLARIFICATION FORM: Dear Dr. BERNABE LOMELI Date: 04-08-20 Please exercise your independent, professional judgment in responding to the clarification form. Clinical indicators are provided on the bottom of this form for your review. Please check appropriate box(es): [ ] Protein Calorie Malnutrition: [ ] Mild [ ] Moderate [ ] Severe [ ] Other Malnutrition (please specify) [ ] Other diagnosis [ ] Unable to determine In addition, please specify: Present on Admission (POA): [ ] Yes [ ] No [ ] Unable to determine For continuity of documentation, please document condition throughout progress notes and discharge summary. Thank You. To be completed by CDI/Coding staff for physician review: CLINICAL INDICATORS - SIGNS / SYMPTOMS / LABS / RESULTS AND LOCATION IN MR: BMI: 16.7 MENTAL HEALTH COUNSELOR CONSULT 04-07-20: severe COPD, chronic respiratory failure on home O2, former smoker ; severe muscle wasting to trapezius and pectoralis, moderate fat loss to orbital region ; severe muscle wasting and moderate fat loss with edema present suggestive of [id number] malnutrition in the context of chronic illness RISK FACTORS / RESULTS AND LOCATION IN MR: MENTAL HEALTH COUNSELOR CONSULT 04-07-20: severe COPD, chronic respiratory failure on home O2, former smoker TREATMENT / RESULTS AND LOCATION IN MR: MENTAL HEALTH COUNSELOR CONSULT 04-07-20: 1. Recommend a Regular diet 2. Recommend Ensure Enlive BID to assist with weight gain Moderate Malnutrition (in acute illness) Energy Intake: <75% of estimated energy requirement for > 7 days Weight Loss: 1-2%/1 week; 5%/ 1 month; 7.5%/3 months Other: mild body fat loss; mild muscle mass loss; mild fluid accumulation; Severe Malnutrition (in acute illness) Energy Intake: = 50% of estimated energy requirement for = 5 days Weight Loss: >2%/1 week; >5%/1 month; >7.5%/3 months Other: moderate body fat loss; moderate muscle mass loss; moderate- severe fluid accumulation; measurably reduced correction lieutenant strength Moderate Malnutrition (in chronic illness) Energy Intake: <75% of estimated energy requirement for =1 month Weight Loss: 5%/1 month; 7.5%/3 months; 10%/6 months; 20%/1 year Other: mild body fat loss; mild muscle mass loss; mild fluid accumulation Severe Malnutrition (in chronic illness) Energy Intake: =75% of estimated energy requirement for =1 month Weight Loss: >5%/1 month; >7.5%/3 months; >10%/6 months; >20%/1 year Other: severe body fat loss; severe muscle mass loss; severe fluid accumulation; measurably reduced correction lieutenant strength CDS Signature: Leslie Briceño Phone #:[phone] Date: 04-08-20 This is a permanent part of the Medical Record [facility]
--- NOTE | 2020-04-08 17:50 | PDOC.HOSPP ---
- Subjective Encounter Date: 04/08/20 Encounter Time: 12:00 Subjective: Patient seen for follow-up regarding COPD exacerbation. Sleepy but arousable, denies chest pain. Reports shortness of breath is better. - Objective Vital Signs & Weight: Vital Signs (12 hours) Temp Pulse Pulse Pulse Resp BP BP 04/08/20 14:51 93 28 H 04/08/20 14:50 95 28 H 04/08/20 11:04 113 H 99 117/76 98/58 L 04/08/20 10:29 84 26 H 04/08/20 10:27 84 16 04/08/20 07:23 97.4 F L 04/08/20 06:22 85 16 04/08/20 06:21 85 16 04/08/20 06:20 77 16 Pulse Ox Pulse Ox Pulse Ox 04/08/20 14:51 100 04/08/20 14:50 100 04/08/20 11:04 100 100 04/08/20 10:29 100 04/08/20 10:27 100 04/08/20 07:23 04/08/20 06:22 100 04/08/20 06:21 100 04/08/20 06:20 100 Weight Admit Weight 113 lb Weight 113 lb Most Recent Monitor Data Heart Rate from ECG 97 NIBP 94/58 NIBP BP-Mean 70 Respiration from ECG 28 SpO2 100 I&O: 04/07/20 04/08/20 04/09/20 06:59 06:59 06:59 Intake Total 340 1000 Output Total 250 970 50 Balance 90 30 -50 Result Diagrams: 04/05/20 19:11 04/05/20 19:11 Additional Labs: I reviewed patient's labs and MAR EKG Reviewed by me: Yes (Normal sinus rhythm on telemetry) Hospitalist ROS - Review of Systems Respiratory: reports: cough, dry, SOB with excertion. denies: shortness of breath, hemoptysis, pleuritic pain, sputum, wheezing Cardiovascular: denies: chest pain, palpitations, orthopnea, paroxysmal noc. dyspnea, edema, light headedness - Medication Medications: Active Medications Generic Name Dose Route Start Last Admin Trade Name Freq PRN Reason Stop Dose Admin Acetaminophen 650 mg 04/05/20 20:16 04/06/20 12:01 Acetaminophen 325 Mg Tab PO 650 mg Q4H PRN Administration Headache/Fever/Mild Pain (1-3) Albuterol/Ipratropium 3 ml 04/07/20 14:30 04/08/20 14:50 Ipratropium/Albuterol Sulfate 3 Ml Neb NEB 3 ml [id number] MK Administration Budesonide 0.5 mg 04/06/20 18:30 04/08/20 06:22 Budesonide 0.5 Mg/2 Ml Neb NEB 0.5 mg BID-RT MK Administration Clonazepam 0.5 mg 04/07/20 21:00 04/08/20 10:15 Clonazepam 0.5 Mg Tab PO 0.5 mg BID MK Administration Enoxaparin Sodium 40 mg 04/06/20 09:00 04/08/20 10:16 Enoxaparin Sodium 40 Mg/0.4 Ml Syringe SC 40 mg 0900 MK Administration Cefepime HCl 1 gm/ Sodium 100 mls @ 200 mls/hr 04/07/20 13:00 04/08/20 14:09 Chloride IVPB 100 mls 0100,1300 MK Administration Methylprednisolone Sodium Succinate 40 mg 04/05/20 23:59 04/08/20 14:09 Methylprednisolone Sod Succ 40 Mg Vial IVP 40 mg Q6HR MK Administration Mometasone Furoate/Formoterol Fumar 2 puff 04/07/20 18:30 04/08/20 06:20 Mometasone 200 Mcg/Formoterol 5 Mcg 120 Puff Inhaler INH 2 puff BID-RT MK Administration Pantoprazole Sodium 40 mg 04/07/20 09:00 04/08/20 10:16 Pantoprazole 40 Mg Tab PO 40 mg DAILY MK Administration Sodium Chloride 10 ml 04/05/20 21:00 04/08/20 10:16 Flush - Normal Saline 10 Ml Syringe IVF 10 ml Q12HR MK Administration - Exam Eye: anicteric sclera ENT: moist mucosa Neck: supple Heart: RRR Respiratory - other findings: Diminished air entry at both bases Gastrointestinal: soft, non-tender Skin: no rashes Psychiatric: normal affect, normal behavior Hosp A/P - Plan respiratory therapy, out of bed/ambulate, DVT proph w/SCDs Assessment (1) COPD exacerbation Status: Acute (2) Acute on chronic respiratory failure with hypercapnia Status: Acute (3) bacteremia Status: Acute (4) Edema of right lower extremity Code(s): R60.0 - LOCALIZED EDEMA Status: Acute Plan: U/S negative for DVT (5) Anxiety and depression Code(s): F41.9 - ANXIETY DISORDER, UNSPECIFIED; F32.9 - MAJOR DEPRESSIVE DISORDER, SINGLE EPISODE, UNSPECIFIED Status: Chronic (6) severe protein calorie malnutrition Status: Chronic, present on admission Plan Continue BiPAP as needed, oxygen as needed, IV steroids, inhaled bronchodilators and IV cefepime. Continue intravenous steroids and inhaled bronchodilators. COVID-19 test is negative. Patient is slowly improving, in IMCU. 1 out of 2 blood cultures is positive for pansensitive Klebsiella. Resume aspirin and furosemide.
[2020-04-08] MEDS: Furosemide 20 MG TAB PO SCH (21:02)
[2020-04-09] MEDS: methylPREDNISolone Sod Succ 40 MG VIAL IVP SCH ×4 (00:16→18:43)
[2020-04-09] MEDS: Cefepime 1 GM in Sodium Chloride 0.9% 100 ML IVPB SCH ×2 (00:16→15:39)
[2020-04-09] MEDS: Acetaminophen 325 MG TAB PO PRN ×2 (00:19→21:01)
[2020-04-09 03:36] LABS: #Lymphocytes 0.2 thou/uL (1.20-3.40); #Monocytes 0.9 thou/uL (0.11-0.59); #Neutrophils 9.7 thou/uL (1.40-6.50); %Basophils 0.2 % (0.0-1.0); %Eosinophils 0.1 % (0.0-10.0); %Lymphocytes 1.4 % (21.0-51.0); %Monocytes 8.2 % (0.0-10.0); %Neutrophils 90.2 % (42.0-75.0); Mean Corpuscular HGB CONC 32.6 g/dL (32.0-36.0); Mean Corpuscular Hemoglobin 32.9 pg (27.0-31.0); Mean Platelet Volume 8.8 fL (7.4-10.4); Platelet Count 164 thou/uL (130-400); RBC Distribution Width 13.6 % (11.5-14.5); Red Blood Cell (RBC) Count 3.34 mill/uL (4.70-6.10); White Blood Cell (WBC) Count 10.7 thou/uL (4.8-10.8)
[2020-04-09 03:58] LABS: Anion Gap 12 mmol/L (10-20); BUN (Urea Nitrogen) 25 mg/dL (8.4-25.7); Calc. Creatinine Clearance 69 mL/min (70-130); Calcium 8.4 mg/dL (7.8-10.44); Carbon Dioxide 37 mmol/L (23-31); Chloride 97 mmol/L (98-107); Estimated GFR-MDRD Greater than 90; Glucose 118 mg/dL (83-110); Potassium 3.8 mmol/L (3.5-5.1); Sodium 142 mmol/L (136-145)
[2020-04-09] MEDS: Mometasone 200 MCG/Formoterol 5 MCG 120 PUFF INHALER INH SCH ×2 (08:20→18:54)
[2020-04-09] MEDS: Budesonide 0.5 MG/2 ML NEB NEB SCH ×2 (08:21→19:01)
[2020-04-09] MEDS: Enoxaparin Sodium 40 MG/0.4 ML SYRINGE SC SCH (09:19)
[2020-04-09] MEDS: Furosemide 20 MG TAB PO SCH ×2 (09:19→21:02)
[2020-04-09] MEDS: Aspirin 81 mg Enteric Coated Tablet PO SCH (09:19)
[2020-04-09] MEDS: clonazePAM 0.5 MG TAB PO SCH ×2 (09:19→21:02)
--- NOTE | 2020-04-09 09:20 | PRG ---
DATE OF SERVICE: 04/09/2020 SUBJECTIVE: The patient feels a little better today. He still requiring BiPAP around the clock. OBJECTIVE: VITAL SIGNS: Temperature 97.6, pulse 98, blood pressure 96/45, O2 saturation 100%. HEENT: Unremarkable. NECK: No JVD. LUNGS: Distant, but clear breath sounds. CARDIAC: S1, S2. Regular. ABDOMEN: Soft. EXTREMITIES: No edema. LABORATORY DATA: Sodium 142, potassium 3.8, chloride 97, CO2 of 37, BUN 25, creatinine 0.6, and glucose 118. White blood cell count 10.7, hematocrit 33.7, and platelet count 164. Blood cultures are growing out Klebsiella. ASSESSMENT: 1. Klebsiella sepsis. 2. Acute on chronic respiratory failure secondary to chronic obstructive pulmonary disease. 3. Suspicious for diverticular disease as he had complaints of abdominal pain when he came in the hospital and Klebsiella could be from a gastrointestinal source such as diverticular disease or gallbladder disease. RECOMMENDATIONS: I would continue treating with antibiotics-at least full 5 days IV and then switch him over to either Levaquin or Cipro as an outpatient and finish out a full 14-day course. Unfortunately, with his severe pulmonary problems, he is not a candidate for any type of surgical procedure, so I do not know if it is worth investigating this further with imaging. Job ID: [id number]
--- NOTE | 2020-04-09 17:22 | PDOC.HOSPP ---
- Subjective Encounter Date: 04/09/20 Encounter Time: 11:00 Subjective: Pt seen for followup re: COPD exacerbation. Feels he is at baseline in terms of breathing. - Objective Vital Signs & Weight: Vital Signs (12 hours) Temp Pulse Resp Pulse Ox 04/09/20 15:49 96.6 F L 04/09/20 13:48 109 H 21 H 100 04/09/20 11:20 97.3 F L 04/09/20 10:40 101 H 15 100 04/09/20 08:22 100 04/09/20 08:21 105 H 20 100 04/09/20 08:20 104 H 20 100 04/09/20 07:28 97.6 F Weight Admit Weight 113 lb Weight 113 lb Most Recent Monitor Data Heart Rate from ECG 98 NIBP 107/56 NIBP BP-Mean 73 Respiration from ECG 17 SpO2 100 I&O: 04/08/20 04/09/20 04/10/20 06:59 06:59 06:59 Intake Total 1000 590 Output Total 970 145 Balance 30 445 Result Diagrams: 04/09/20 03:08 04/09/20 03:08 Additional Labs: Labs and MARs reviewed by me EKG Reviewed by me: Yes (Tele: NSR) Hospitalist ROS - Review of Systems Respiratory: reports: SOB with excertion. denies: cough, dry, shortness of breath, hemoptysis, pleuritic pain, sputum, wheezing Cardiovascular: denies: chest pain, palpitations, orthopnea, paroxysmal noc. dyspnea, edema, light headedness - Medication Medications: Active Medications Generic Name Dose Route Start Last Admin Trade Name Antonq PRN Reason Stop Dose Admin Acetaminophen 650 mg 04/05/20 20:16 04/09/20 00:19 Acetaminophen 325 Mg Tab PO 650 mg Q4H PRN Administration Headache/Fever/Mild Pain (1-3) Albuterol/Ipratropium 3 ml 04/07/20 14:30 04/09/20 13:48 Ipratropium/Albuterol Sulfate 3 Ml Neb NEB 3 ml [id number] MK Administration Aspirin 81 mg 04/09/20 09:00 04/09/20 09:19 Aspirin 81 Mg Enteric Coated Tablet PO 81 mg DAILY MK Administration Budesonide 0.5 mg 04/06/20 18:30 04/09/20 08:21 Budesonide 0.5 Mg/2 Ml Neb NEB 0.5 mg BID-RT MK Administration Clonazepam 0.5 mg 04/07/20 21:00 04/09/20 09:19 Clonazepam 0.5 Mg Tab PO 0.5 mg BID MK Administration Enoxaparin Sodium 40 mg 04/06/20 09:00 04/09/20 09:19 Enoxaparin Sodium 40 Mg/0.4 Ml Syringe SC 40 mg 0900 MK Administration Furosemide 20 mg 04/08/20 21:00 04/09/20 09:19 Furosemide 20 Mg Tab PO 20 mg BID MK Administration Cefepime HCl 1 gm/ Sodium 100 mls @ 200 mls/hr 04/07/20 13:00 04/09/20 15:39 Chloride IVPB 100 mls 0100,1300 MK Administration Methylprednisolone Sodium Succinate 40 mg 04/05/20 23:59 04/09/20 15:39 Methylprednisolone Sod Succ 40 Mg Vial IVP 40 mg Q6HR MK Administration Mometasone Furoate/Formoterol Fumar 2 puff 04/07/20 18:30 04/09/20 08:20 Mometasone 200 Mcg/Formoterol 5 Mcg 120 Puff Inhaler INH 2 puff BID-RT MK Administration Pantoprazole Sodium 40 mg 04/07/20 09:00 04/09/20 09:19 Pantoprazole 40 Mg Tab PO 40 mg DAILY MK Administration Sodium Chloride 10 ml 04/05/20 21:00 04/09/20 09:19 Flush - Normal Saline 10 Ml Syringe IVF 10 ml Q12HR MK Administration - Exam General Appearance: awake alert Eye: anicteric sclera ENT: moist mucosa Neck: supple Heart: RRR Respiratory: CTAB Gastrointestinal: soft, non-tender Skin: no rashes Psychiatric: normal affect, normal behavior Hosp A/P - Plan Assessment (1) COPD exacerbation Status: Acute (2) Acute on chronic respiratory failure with hypercapnia Status: Acute (3) bacteremia Status: Acute (4) Edema of right lower extremity Code(s): R60.0 - LOCALIZED EDEMA Status: Acute Plan: U/S negative for DVT (5) Anxiety and depression Code(s): F41.9 - ANXIETY DISORDER, UNSPECIFIED; F32.9 - MAJOR DEPRESSIVE DISORDER, SINGLE EPISODE, UNSPECIFIED Status: Chronic (6) severe protein calorie malnutrition Status: Chronic, present on admission Plan Continue BiPAP PRN, oxygen PRN, IV steroids, inhaled bronchodilators and IV cefepime. Continue intravenous steroids and inhaled bronchodilators. COVID-19 test is negative. Patient is slowly improving, in IMCU. 1 out of 2 blood cultures is positive for pansensitive Klebsiella. Continue IV cefepime until tomorrow, then transition to oral antibiotics. Continue aspirin and furosemide.
[2020-04-10] MEDS: Cefepime 1 GM in Sodium Chloride 0.9% 100 ML IVPB SCH ×2 (00:14→12:47)
[2020-04-10] MEDS: methylPREDNISolone Sod Succ 40 MG VIAL IVP SCH ×4 (00:14→17:53)
[2020-04-10 02:50] LABS: Bacteria/HPF None Seen HPF (None Seen); Bilirubin Negative (Negative); Blood, Urine Negative (Negative); Clarity Clear (Clear); Glucose, Urine (Dipstick) 300 mg/dL (Negative); Ketone, Urine Negative (Negative); Leukocyte Negative Leu/uL (Negative); Nitrite Negative (Negative); Protein, Urine (Dipstick) Negative (Neg-Trace); RBC/HPF None Seen HPF (0-3); Specific Gravity, Urine 1.016 (1.002-1.036); Squamous Epithelial None Seen HPF (0-3); Urobilinogen Normal mg/dL (Less than 2); WBC/HPF 0-3 HPF (0-3); pH, Urine 6.5 (5.0-9.0)
[2020-04-10 02:51] LABS: Urine Culture Reflex No No
[2020-04-10 07:18] LABS: #Basophils 0.1 thou/uL (0.0-0.2); #Lymphocytes 0.2 thou/uL (1.20-3.40); #Monocytes 0.8 thou/uL (0.11-0.59); #Neutrophils 8.9 thou/uL (1.40-6.50); %Basophils 0.5 % (0.0-1.0); %Eosinophils 0.1 % (0.0-10.0); %Lymphocytes 1.7 % (21.0-51.0); %Monocytes 7.9 % (0.0-10.0); %Neutrophils 89.8 % (42.0-75.0); Hemoglobin 11.9 g/dL (14.0-18.0); Mean Corpuscular HGB CONC 32.8 g/dL (32.0-36.0); Mean Corpuscular Hemoglobin 33.2 pg (27.0-31.0); Mean Platelet Volume 8.7 fL (7.4-10.4); Platelet Count 160 thou/uL (130-400); RBC Distribution Width 13.5 % (11.5-14.5); Red Blood Cell (RBC) Count 3.59 mill/uL (4.70-6.10); White Blood Cell (WBC) Count 9.9 thou/uL (4.8-10.8)
[2020-04-10] MEDS: Budesonide 0.5 MG/2 ML NEB NEB SCH ×2 (07:24→19:02)
[2020-04-10] MEDS: Mometasone 200 MCG/Formoterol 5 MCG 120 PUFF INHALER INH SCH ×2 (07:25→19:03)
[2020-04-10 07:31] LABS: BUN (Urea Nitrogen) 21 mg/dL (8.4-25.7); Calc. Creatinine Clearance 72 mL/min (70-130); Calcium 8.6 mg/dL (7.8-10.44); Estimated GFR-MDRD Greater than 90; Glucose 122 mg/dL (83-110)
[2020-04-10 07:41] LABS: Anion Gap 18 mmol/L (10-20); Carbon Dioxide 36 mmol/L (23-31); Chloride 92 mmol/L (98-107); Potassium 3.9 mmol/L (3.5-5.1); Sodium 142 mmol/L (136-145)
[2020-04-10] MEDS: Enoxaparin Sodium 40 MG/0.4 ML SYRINGE SC SCH (08:51)
[2020-04-10] MEDS: Furosemide 20 MG TAB PO SCH ×2 (08:51→20:18)
[2020-04-10] MEDS: clonazePAM 0.5 MG TAB PO SCH ×2 (08:52→20:19)
[2020-04-10] MEDS: Aspirin 81 mg Enteric Coated Tablet PO SCH (08:52)
--- NOTE | 2020-04-10 09:26 | PRG ---
DATE OF SERVICE: 04/10/2020 SUBJECTIVE: Mr. Montelongo remains in the IMCU. He is requiring BiPAP near continuously. He is on day 5 of his cefepime today for Klebsiella infection. OBJECTIVE: VITAL SIGNS: Temperature 98.0, pulse 91, blood pressure 97/47, O2 sat 100%. HEENT: Unremarkable. NECK: No JVD. LUNGS: Poor air movement. CARDIAC: S1 and S2. Regular. ABDOMEN: Soft. EXTREMITIES: Severe muscle wasting. LABORATORY DATA: Sodium 142, potassium 3.9, chloride 92, CO2 of 36, BUN 21, creatinine 0.6, glucose 122. White blood cell count 9.9, hematocrit 36.3, and platelet count 160. ASSESSMENT: 1. Klebsiella sepsis - most likely an abdominal source. 2. Chronic obstructive pulmonary disease with exacerbation. PLAN: 1. Switch him over to Levaquin tomorrow and treat for 9 days. 2. He is at his baseline from a pulmonary standpoint, so I think he can go home tomorrow on his Trilogy ventilator. His prognosis remains poor. The patient and family continued to refuse hospice. Job ID: [id number]
[2020-04-10] MEDS ORDERED: Tamsulosin HCl 0.4 MG CAP PO SCH (14:45)
--- NOTE | 2020-04-10 18:47 | PDOC.HOSPP ---
- Subjective Encounter Date: 04/10/20 Encounter Time: 13:30 Subjective: Patient seen for follow-up for COPD exacerbation. Reports feeling better. He had episode of urinary retention. - Objective Vital Signs & Weight: Vital Signs (12 hours) Temp Pulse Pulse Pulse Resp BP BP 04/10/20 16:00 98.0 F 04/10/20 14:29 111 H 21 H 04/10/20 14:08 113 H 103 H 114/79 111/63 04/10/20 11:29 97.8 F 04/10/20 10:25 92 18 04/10/20 08:00 04/10/20 07:25 85 15 04/10/20 07:24 85 15 04/10/20 07:10 98.0 F Pulse Ox Pulse Ox Pulse Ox 04/10/20 16:00 04/10/20 14:29 96 04/10/20 14:08 99 100 04/10/20 11:29 04/10/20 10:25 97 04/10/20 08:00 100 04/10/20 07:25 100 04/10/20 07:24 100 04/10/20 07:10 Weight Admit Weight 113 lb Weight 113 lb 8 oz Most Recent Monitor Data Heart Rate from ECG 113 NIBP 111/59 NIBP BP-Mean 76 Respiration from ECG 17 SpO2 100 I&O: 04/09/20 04/10/20 04/11/20 06:59 06:59 06:59 Intake Total 590 240 300 Output Total 145 1969 Balance 445 -1729 300 Result Diagrams: 04/10/20 06:43 04/10/20 06:43 Additional Labs: I reviewed patient's labs and MAR EKG Reviewed by me: Yes (Normal sinus rhythm on telemetry) Hospitalist ROS - Review of Systems Respiratory: denies: cough, shortness of breath, SOB with excertion, pleuritic pain, wheezing Cardiovascular: denies: chest pain, palpitations, orthopnea, paroxysmal noc. dyspnea, edema, light headedness - Medication Medications: Active Medications Generic Name Dose Route Start Last Admin Trade Name Freq PRN Reason Stop Dose Admin Acetaminophen 650 mg 04/05/20 20:16 04/09/20 21:01 Acetaminophen 325 Mg Tab PO 650 mg Q4H PRN Administration Headache/Fever/Mild Pain (1-3) Albuterol/Ipratropium 3 ml 04/07/20 14:30 04/10/20 14:29 Ipratropium/Albuterol Sulfate 3 Ml Neb NEB 3 ml [id number] MK Administration Aspirin 81 mg 04/09/20 09:00 04/10/20 08:52 Aspirin 81 Mg Enteric Coated Tablet PO 81 mg DAILY MK Administration Budesonide 0.5 mg 04/06/20 18:30 04/10/20 07:24 Budesonide 0.5 Mg/2 Ml Neb NEB 0.5 mg BID-RT MK Administration Clonazepam 0.5 mg 04/07/20 21:00 04/10/20 08:52 Clonazepam 0.5 Mg Tab PO 0.5 mg BID MK Administration Enoxaparin Sodium 40 mg 04/06/20 09:00 04/10/20 08:51 Enoxaparin Sodium 40 Mg/0.4 Ml Syringe SC 40 mg 0900 MK Administration Furosemide 20 mg 04/08/20 21:00 04/10/20 08:51 Furosemide 20 Mg Tab PO 20 mg BID MK Administration Cefepime HCl 1 gm/ Sodium 100 mls @ 200 mls/hr 04/07/20 13:00 04/10/20 12:47 Chloride IVPB 04/11/20 00:01 100 mls 0100,1300 MK Administration Methylprednisolone Sodium Succinate 40 mg 04/05/20 23:59 04/10/20 17:53 Methylprednisolone Sod Succ 40 Mg Vial IVP 40 mg Q6HR MK Administration Mometasone Furoate/Formoterol Fumar 2 puff 04/07/20 18:30 04/10/20 07:25 Mometasone 200 Mcg/Formoterol 5 Mcg 120 Puff Inhaler INH 2 puff BID-RT MK Administration Pantoprazole Sodium 40 mg 04/07/20 09:00 04/10/20 08:51 Pantoprazole 40 Mg Tab PO 40 mg DAILY MK Administration Sodium Chloride 10 ml 04/05/20 21:00 04/10/20 08:52 Flush - Normal Saline 10 Ml Syringe IVF 10 ml Q12HR MK Administration - Exam General Appearance: awake alert Eye: anicteric sclera ENT: moist mucosa Neck: supple Heart: RRR Respiratory: CTAB Gastrointestinal: soft, non-tender Skin: no rashes Psychiatric: normal affect Hosp A/P - Plan Patient is a pleasant 74-year-old gentleman who was admitted to the hospital on April 05, [address] angiogram of the chest ruled out pulmonary embolism. He had likely reactive atelectasis/scar along the superior segment of the right lower lobe, although underlying malignancy could not be totally excluded. He continued to improve clinically and is around his baseline pulmonary torres. 1 out of 2 blood cultures grew pansensitive Klebsiella. He has completed 5 days of cefepime, will transition him to oral levofloxacin to complete 14 days of total antibiotic therapy. Initial plan was to go home on April 11. However, he has developed urinary retention. I am starting him on Flomax and he has a Dial catheter now. Disposition depending on how he does from the urinary retention point of view. Assessment (1) COPD exacerbation Status: Acute (2) Acute on chronic respiratory failure with hypercapnia Status: Acute (3) bacteremia Status: Acute (4) urinary retention Status: Acute (4) Edema of right lower extremity Code(s): R60.0 - LOCALIZED EDEMA Status: Acute Plan: U/S negative for DVT (5) Anxiety and depression Code(s): F41.9 - ANXIETY DISORDER, UNSPECIFIED; F32.9 - MAJOR DEPRESSIVE DISORDER, SINGLE EPISODE, UNSPECIFIED Status: Chronic (6) severe protein calorie malnutrition Status: Chronic, present on admission Plan Patient improved BiPAP PRN, oxygen PRN, IV steroids, inhaled bronchodilators and IV cefepime. He appears to be at his baseline. Continue intravenous steroids and inhaled bronchodilators. COVID-19 test is negative. Patient is slowly improving, in IMCU. 1 out of 2 blood cultures is positive for pansensitive Klebsiella. It has been transitioned to levofloxacin. Continue aspirin and furosemide. Continue Flomax. Likely voiding trial tomorrow.
[2020-04-10] MEDS: Acetaminophen 325 MG TAB PO PRN (20:18)
[2020-04-11] MEDS: Acetaminophen 325 MG TAB PO PRN (06:08)
[2020-04-11] MEDS: Budesonide 0.5 MG/2 ML NEB NEB SCH ×2 (07:06→18:59)
[2020-04-11] MEDS: Mometasone 200 MCG/Formoterol 5 MCG 120 PUFF INHALER INH SCH ×2 (07:07→18:59)
[2020-04-11] MEDS: Enoxaparin Sodium 40 MG/0.4 ML SYRINGE SC SCH (07:49)
[2020-04-11] MEDS: predniSONE 20 MG TAB PO SCH (07:50)
[2020-04-11] MEDS: Aspirin 81 mg Enteric Coated Tablet PO SCH (07:50)
[2020-04-11] MEDS: clonazePAM 0.5 MG TAB PO SCH ×2 (07:50→20:22)
[2020-04-11] MEDS: Furosemide 20 MG TAB PO SCH ×2 (07:51→20:22)
[2020-04-11] MEDS: Tamsulosin HCl 0.4 MG CAP PO SCH (07:51)
[2020-04-11] MEDS ORDERED: Digoxin 0.5 MG/2 ML AMP SLOW IVP SCH ×2 (10:00→11:30)
[2020-04-11] MEDS ORDERED: Magnesium 2 GM/50 ML 2 GM in Premix Bag 1 BAG IVPB SCH (10:00)
[2020-04-11] MEDS ORDERED: Magnesium Sulfate 2 GM in Sodium Chloride 0.9% 100 ML IVPB SCH (10:00)
--- NOTE | 2020-04-11 11:22 | CON ---
DATE OF CONSULTATION: 04/11/2020 REASON FOR CONSULTATION: Supraventricular tachycardia in the setting of advanced lung disease. HISTORY OF PRESENT ILLNESS: Mr. Montelongo is a 74-year-old gentleman, admitted to the hospital with severe difficulty breathing due to longstanding COPD. He is receiving diuretics orally. He is receiving intravenous antibiotics, but noticed that he has intermittent episodes of supraventricular tachycardia lasting for a few seconds at a time. His blood pressure is on the low side. No previous cardiac history or rapid heart rates that he knows. MEDICATIONS: No cardiac medicines other than furosemide 20 mg orally twice a day. PAST MEDICAL HISTORY: Severe COPD. ALLERGIES: NONE KNOWN. REVIEW OF SYSTEMS: CONSTITUTIONAL: Looks very thin, underweight. VISION: No changes. HEARING: No changes. PULMONARY: Shortness of breath. CARDIAC: No chest pain or pressure. ABDOMEN: No nausea, vomiting, or diarrhea. PHYSICAL EXAMINATION: GENERAL: This is an underweight appearing, chronically ill-appearing gentleman. VITAL SIGNS: Blood pressure 92/50, pulse is in the 120 sinus with intermittent episodes of supraventricular tachycardia. NECK: Neck veins are normal. Carotid normal upstrokes. LUNGS: Distant. I do not hear any wheezing. CARDIAC: Distant. I do not hear any murmur, rub, or gallop. He is tachycardic. ABDOMEN: Soft and nontender. EXTREMITIES: No clubbing. No cyanosis or edema. PERTINENT LABORATORY DATA: EKG, sinus rhythm with PACs, episodes of supraventricular tachycardia. Chest x-ray shows elevated right hemidiaphragm. ASSESSMENT: 1. Severe chronic obstructive pulmonary disease. 2. Atrial arrhythmias. 3. Relatively low blood pressure. Most likely, his arrhythmias are associated with his severe chronic obstructive pulmonary disease, frequently originate from the right heart. PLAN: 1. We will give him intravenous digoxin. 2. Echocardiogram. 3. Give some intravenous magnesium. No other recommendations at this time. Job ID: [id number]
--- NOTE | 2020-04-11 12:15 | PRG ---
DATE OF SERVICE: 04/11/2020 SUBJECTIVE: He is on a BiPAP this morning. OBJECTIVE: VITAL SIGNS: His saturations are 100%, respiratory rate 25, pulse 119, maximum temperature is 97.8, and his blood pressure is 90/56. GENERAL: He wants to go home. CHEST: Decreased breath sounds. No wheezing. CARDIAC: Normal S1, S2. No gallops. ABDOMEN: No masses. ASSESSMENT AND PLAN: End-stage respiratory failure, Klebsiella UTI, severe deconditioning, cachexia, home nocturnal vent. He is on p.o. antibiotics. probably plan to send him home on Monday. Job ID: [id number]
--- NOTE | 2020-04-11 12:43 | PDOC.HOSPP ---
- Subjective Encounter Date: 04/11/20 Encounter Time: 12:41 Subjective: Mr. 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 It appears that he had urinary retention and I suspect he also has evidence of BPH. He has been getting bronchodilators and steroids and he was actually about to be discharged home yesterday when they noticed that he was pretty distended with urine. He had a catheter placed and he immediately put out about a liter the said. I had a chance to discuss with the urologist today who is recommending that the patient likely will go home on a catheter and have an outpatient follow-up for voiding trial. With regards to his COPD he was on a BiPAP this morning and he was working really hard to breathe. 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 His prognosis is poor. - Objective Vital Signs & Weight: Vital Signs (12 hours) Temp Pulse Resp Pulse Ox 04/11/20 12:11 110 H 04/11/20 10:28 110 H 16 100 04/11/20 10:11 130 H 04/11/20 08:00 97.8 F 100 04/11/20 07:07 108 H 12 100 04/11/20 04:00 97.6 F 04/11/20 03:03 97 18 100 Weight Admit Weight 113 lb Weight 113 lb 8 oz Most Recent Monitor Data Heart Rate from ECG 119 NIBP 92/56 NIBP BP-Mean 68 Respiration from ECG 25 SpO2 100 I&O: 04/10/20 04/11/20 04/12/20 06:59 06:59 06:59 Intake Total 240 1720 Output Total 6711 1924 Balance -1729 -205 Result Diagrams: 04/10/20 06:43 04/10/20 06:43 Radiology Reviewed by me: Yes EKG Reviewed by me: Yes Hospitalist ROS - Review of Systems Constitutional: reports: weakness Respiratory: reports: cough, SOB with excertion, wheezing Gastrointestinal: reports: nausea Genitourinary: reports: retention - Medication Medications: Active Medications Generic Name Dose Route Start Last Admin Trade Name Freq PRN Reason Stop Dose Admin Acetaminophen 650 mg 04/05/20 20:16 04/11/20 06:08 Acetaminophen 325 Mg Tab PO 650 mg Q4H PRN Administration Headache/Fever/Mild Pain (1-3) Albuterol/Ipratropium 3 ml 04/07/20 14:30 04/11/20 10:28 Ipratropium/Albuterol Sulfate 3 Ml Neb NEB 3 ml [id number] MK Administration Aspirin 81 mg 04/09/20 09:00 04/11/20 07:50 Aspirin 81 Mg Enteric Coated Tablet PO 81 mg DAILY MK Administration Budesonide 0.5 mg 04/06/20 18:30 04/11/20 07:06 Budesonide 0.5 Mg/2 Ml Neb NEB 0.5 mg BID-RT MK Administration Clonazepam 0.5 mg 04/07/20 21:00 04/11/20 07:50 Clonazepam 0.5 Mg Tab PO 0.5 mg BID MK Administration Digoxin 0.25 mg 04/11/20 11:30 04/11/20 12:11 Digoxin 0.5 Mg/2 Ml Amp SLOW IVP 04/11/20 13:30 0.25 mg 1130 MK Administration Enoxaparin Sodium 40 mg 04/06/20 09:00 04/11/20 07:49 Enoxaparin Sodium 40 Mg/0.4 Ml Syringe SC 40 mg 0900 MK Administration Furosemide 20 mg 04/08/20 21:00 04/11/20 07:51 Furosemide 20 Mg Tab PO 20 mg BID MK Administration Magnesium Sulfate 2 gm/ Device 50 mls @ 50 mls/hr 04/11/20 10:00 04/11/20 10:14 IVPB 04/11/20 13:00 50 mls NOW MK Administration Levofloxacin 500 mg 04/11/20 06:00 04/11/20 06:08 Levofloxacin 500 Mg Tab PO 04/20/20 06:01 500 mg 0600 MK Administration Mometasone Furoate/Formoterol Fumar 2 puff 04/07/20 18:30 04/11/20 07:07 Mometasone 200 Mcg/Formoterol 5 Mcg 120 Puff Inhaler INH 2 puff BID-RT MK Administration Pantoprazole Sodium 40 mg 04/07/20 09:00 04/11/20 07:51 Pantoprazole 40 Mg Tab PO 40 mg DAILY MK Administration Prednisone 40 mg 04/11/20 08:00 04/11/20 07:50 Prednisone 20 Mg Tab PO 40 mg QAM-WM MK Administration Sodium Chloride 10 ml 04/05/20 21:00 04/11/20 07:51 Flush - Normal Saline 10 Ml Syringe IVF 10 ml Q12HR MK Administration Tamsulosin HCl 0.4 mg 04/11/20 09:00 04/11/20 07:51 Tamsulosin Hcl 0.4 Mg Cap PO 0.4 mg DAILY MK Administration - Exam General Appearance: awake alert, ill appearing Eye: PERRL ENT: moist mucosa, dry oral mucosa Neck: supple, symmetric Heart: RRR, no murmur, no gallops, no rubs, normal peripheral pulses Respiratory: rhonchi, tachypneic, wheezes Gastrointestinal: soft, non-distended, normal bowel sounds, no palpable masses, no hepatomegaly, no splenomegaly, tender to palpation Extremities: no cyanosis, no clubbing Skin: normal turgor Neurological: cranial nerve grossly intact, normal sensation to touch, no weakness, no focal deficits, no new deficit Musculoskeletal: normal tone, normal strength, generalized weakness, diffuse muscle atrophy Psychiatric: normal affect, normal behavior, A&O x 3 Hosp A/P (1) Acute on chronic respiratory failure with hypoxia and hypercapnia Code(s): J96.21 - ACUTE AND CHRONIC RESPIRATORY FAILURE WITH HYPOXIA; J96.22 - ACUTE AND CHRONIC RESPIRATORY FAILURE WITH HYPERCAPNIA Status: Acute Plan: Patient likely with end-stage COPD. We will continue steroids and bronchodilators. (2) COPD exacerbation Code(s): J44.1 - CHRONIC OBSTRUCTIVE PULMONARY DISEASE W (ACUTE) EXACERBATION Status: Acute Plan: Continue bronchodilators and steroids. (3) Pneumonia, aspiration Code(s): J69.0 - PNEUMONITIS DUE TO INHALATION OF FOOD AND VOMIT Status: Acute Plan: He had Klebsiella grew out from his blood he is appropriately on IV antibiotics. (4) Anxiety and depression Code(s): F41.9 - ANXIETY DISORDER, UNSPECIFIED; F32.9 - MAJOR DEPRESSIVE DISORDER, SINGLE EPISODE, UNSPECIFIED Status: Chronic Plan: Continue anxiolytics as needed. (5) Urinary retention Code(s): R33.9 - RETENTION OF URINE, UNSPECIFIED Status: Acute (6) Urinary retention due to benign prostatic hyperplasia Code(s): N40.1 - BENIGN PROSTATIC HYPERPLASIA WITH LOWER URINARY TRACT SYMP; R33.8 - OTHER RETENTION OF URINE Status: Acute Plan: I discussed the case with urology who saw him I recommended DC home with Dial catheter. 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
--- NOTE | 2020-04-11 13:36 | CON ---
DATE OF CONSULTATION: 04/11/2020 CONSULTING: Dr. Orellana. STORAGE WHARFAGE CLERK: Dr. Norwood. REASON FOR CONSULTATION: Urinary retention. HISTORY OF PRESENT ILLNESS: Mr. Montelongo is a 74-year-old white male, who has a history of severe COPD with respiratory failure, who came into the emergency room with chest pain, abdominal discomfort, and abdominal pain. He was diagnosed with [id number] respiratory failure with COPD exacerbation and chest pain rule out. He was admitted to the [facility] and due to his history of urinary problems, for which he used to see Dr. More, a Dial catheter was placed for monitoring of in's and out's as well as his significantly debilitated, weakened state. He had his catheter in for the majority of his hospitalization until yesterday to today, when he had his catheter removed, the patient was not able to urinate after several hours and ultimately had his catheter placed with over 1000 mL of urine in his bladder when he started having suprapubic discomfort, I was then consulted for further assistance. The patient used to be a patient of Dr. More and apparently had seen him in the past for urinary problems. He apparently did have prostate issues at that time and was apparently on prostate medications, but after the Derik's retired, he did not follow up with anybody and is currently not taking any prostate medications. He has been restarted on tamsulosin here. He is currently in the [facility] for further evaluation of his heart and lungs. ALLERGIES: NONE. HOME MEDICATIONS: 1. Ibuprofen. 2. Aspirin. 3. Budesonide inhaler. 4. Albuterol-ipratropium inhaler. 5. Clonazepam. 6. Lasix. 7. Brovana. 8. Tylenol with codeine. PAST MEDICAL HISTORY: 1. COPD. 2. History of BPH. 3. Cataracts. 4. Arthritis. 5. PTSD. PAST SURGICAL HISTORY: 1. Cataract surgery. 2. Microscopic knee surgery. FAMILY HISTORY: Noncontributory. SOCIAL HISTORY: The patient drinks alcohol occasionally. He has a history of long-term smoking, but apparently quit. REVIEW OF SYSTEMS: A 12-point review of systems was reviewed mostly with the as the patient is currently on BiPAP and cannot speak adequately. She does not report that could not be obtained from the patient. PHYSICAL EXAMINATION: VITAL SIGNS: Temperature 97.8, pulse 110, respirations 16, blood pressure 92/56, saturations 100% on BiPAP. GENERAL: Appears somewhat cachectic, thin, elderly, and frail. Can nod his head, but is not really answering questions secondary to difficulty breathing. HEENT: Normocephalic, atraumatic. Pupils are symmetric and round. The patient has BiPAP machine on, is currently using this for assistance with breathing. CARDIOVASCULAR: Sinus tachycardia. Normal S1, S2. Symmetric pulses. CHEST: Significantly increased work of breathing, on BiPAP. Symmetric expansion of the lungs. ABDOMEN: Soft, nontender, nondistended. Positive bowel sounds. : Dial catheter in place, secured with StatLock with clear yellow urine. EXTREMITIES: 1+ edema bilaterally. MUSCULOSKELETAL: No obvious joint deformities or joint erythema noted. Generalized weakness. NEUROLOGIC: Cranial nerves 2 through 12 appear grossly intact. No focal or sensory motor deficits identified other than diffuse weakness. SKIN: Warm, dry. No rashes or lesions. Poor turgor. PSYCHIATRIC: The patient is alert. Orientation questions could not be asked secondary to the patient being with a BiPAP machine. LABORATORY DATA: On laboratory evaluation, a full set of labs are in the [employer] [facility] system, which I have reviewed. Of note, the patient's white count is 9.9, hemoglobin is 11.9, platelet count of 160. Creatinine is 0.64. ASSESSMENT AND PLAN: A 74-year-old white male with acute COPD exacerbation with significant respiratory failure, currently with dyspnea. I am not sure he is going to be able to go home in this condition, but he does have a Dial catheter, which was placed with over 1000 mL of urine output, given that he is likely significantly debilitated at the current time along with having an overdistention injury of the bladder. The patient will not likely be able to urinate any time soon. I would recommend that he keep the Dial catheter in for at least 7 days before attempting a void trial. If the patient is still significantly debilitated at that time, he will likely continue to fail a void trial until he has enough strength to regain his bladder function. I do agree with keeping the patient on tamsulosin for the time being. Narcotics should be minimized to improve muscular function and neurological functioning except when absolutely needed. Constipation can also exacerbate urinary retention and should be managed accordingly. From my standpoint, I do not think there is anything further to do on this hospitalization other than keep his Dial in for at least one week to allow for bladder recovery. If the patient is still in the hospital after a week, we can consider a void trial based on his ambulatory status and comorbidities at the time. If he has already been discharged, he can follow up with me as an outpatient. We will plan a void trial in the office after approximately 1 week. I have discussed this all with the , who is in agreement with the plan. Job ID: [id number]
--- NOTE | 2020-04-11 15:29 | EKG ---
Test Reason : Blood Pressure : / mmHG Vent. Rate : 103 BPM Atrial Rate : 103 BPM P-R Int : 124 ms QRS Dur : 074 ms QT Int : 324 ms P-R-T Axes : 067 048 062 degrees QTc Int : 424 ms Sinus tachycardia Baseline Artifact Present Confirmed by KAILEE YUNG, SABRINA Stoll ([id number]), advertising editor KAMAR BELL ([id number]) on 04/11/2020 3:28:42 PM Referred By: Confirmed By:SABRINA DUGAN MD
[2020-04-12] MEDS: Budesonide 0.5 MG/2 ML NEB NEB SCH ×2 (07:07→18:51)
[2020-04-12] MEDS: Mometasone 200 MCG/Formoterol 5 MCG 120 PUFF INHALER INH SCH ×2 (07:07→18:51)
[2020-04-12] MEDS: predniSONE 20 MG TAB PO SCH (09:20)
[2020-04-12] MEDS: clonazePAM 0.5 MG TAB PO SCH ×2 (09:20→20:41)
[2020-04-12] MEDS: Aspirin 81 mg Enteric Coated Tablet PO SCH (09:20)
[2020-04-12] MEDS: Tamsulosin HCl 0.4 MG CAP PO SCH (09:20)
[2020-04-12] MEDS: Enoxaparin Sodium 40 MG/0.4 ML SYRINGE SC SCH (09:20)
[2020-04-12] MEDS: Furosemide 20 MG TAB PO SCH ×2 (09:25→20:41)
--- NOTE | 2020-04-12 11:35 | PRG ---
DATE OF SERVICE: 04/12/2020 SUBJECTIVE: Tim Montelongo is a 74-year-old gentleman, remains on the BiPAP, with no distress. OBJECTIVE: VITAL SIGNS: Pulse 108, temperature 98, at the bedside, sats 100%, blood pressure 103/67. CHEST: No wheezing. No crackles. CARDIAC: Normal S1, S2. No gallops. ABDOMEN: No masses. ASSESSMENT: Respiratory failure, BPH, COPD, nocturnal vent. PLAN: He wants to go home. May consider discharging home on his home vent. Continue steroids, p.o. antibiotics. Job ID: [id number]
[2020-04-12] MEDS ORDERED: Morphine 2 MG/ML VIAL SLOW IVP PRN (15:23)
[2020-04-12 16:51] VITALS: BP 102/75
--- NOTE | 2020-04-12 16:53 | PDOC.HOSPP ---
- Subjective Encounter Date: 04/12/20 Encounter Time: 16:51 Subjective: Mr. Montelongo was seen and evaluated. 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 He has been on BiPAP intermittently. Is still profoundly short of breath despite being on the BiPAP. We had a urologist consult on him and he requested that the patient keep the catheter and will be seen in office on discharge. - Objective Vital Signs & Weight: Vital Signs (12 hours) Temp Pulse Pulse Pulse Resp BP BP 04/12/20 14:55 84 85 102/75 113/72 04/12/20 14:41 102 H 18 04/12/20 13:09 97.4 F L 04/12/20 10:26 108 H 20 04/12/20 08:00 98.1 F 04/12/20 07:07 102 H 18 Pulse Ox Pulse Ox Pulse Ox 04/12/20 14:55 100 100 04/12/20 14:41 100 04/12/20 13:09 04/12/20 10:26 100 04/12/20 08:00 100 04/12/20 07:07 100 Weight Admit Weight 113 lb Weight 113 lb 8 oz Most Recent Monitor Data Heart Rate from ECG 105 NIBP 93/54 NIBP BP-Mean 67 Respiration from ECG 19 SpO2 100 I&O: 04/11/20 04/12/20 04/13/20 06:59 06:59 06:59 Intake Total 1720 1600 Output Total 1925 1850 Balance -205 -250 Result Diagrams: 04/10/20 06:43 04/10/20 06:43 Radiology Reviewed by me: Yes EKG Reviewed by me: Yes Hospitalist ROS - Review of Systems ROS unobtainable: due to mental status Constitutional: reports: weakness, malaise Respiratory: reports: shortness of breath, SOB with excertion, pleuritic pain - Medication Medications: Active Medications Generic Name Dose Route Start Last Admin Trade Name Freq PRN Reason Stop Dose Admin Acetaminophen 650 mg 04/05/20 20:16 04/11/20 06:08 Acetaminophen 325 Mg Tab PO 650 mg Q4H PRN Administration Headache/Fever/Mild Pain (1-3) Albuterol/Ipratropium 3 ml 11/17/20 14:30 04/12/20 14:41 Ipratropium/Albuterol Sulfate 3 Ml Neb NEB 3 ml [id number] MK Administration Aspirin 81 mg 04/09/20 09:00 04/12/20 09:20 Aspirin 81 Mg Enteric Coated Tablet PO 81 mg DAILY MK Administration Budesonide 0.5 mg 04/06/20 18:30 04/12/20 07:07 Budesonide 0.5 Mg/2 Ml Neb NEB 0.5 mg BID-RT MK Administration Clonazepam 0.5 mg 04/07/20 21:00 04/12/20 09:20 Clonazepam 0.5 Mg Tab PO 0.5 mg BID MK Administration Enoxaparin Sodium 40 mg 04/06/20 09:00 04/12/20 09:20 Enoxaparin Sodium 40 Mg/0.4 Ml Syringe SC 40 mg 0900 MK Administration Furosemide 20 mg 04/08/20 21:00 04/12/20 09:25 Furosemide 20 Mg Tab PO 20 mg BID MK Administration Levofloxacin 500 mg 04/11/20 06:00 04/12/20 06:01 Levofloxacin 500 Mg Tab PO 04/20/20 06:01 500 mg 0600 MK Administration Mometasone Furoate/Formoterol Fumar 2 puff 04/07/20 18:30 04/12/20 07:07 Mometasone 200 Mcg/Formoterol 5 Mcg 120 Puff Inhaler INH 2 puff BID-RT MK Administration Morphine Sulfate 2 mg 04/12/20 15:23 04/12/20 15:42 Morphine 2 Mg/Ml Vial SLOW IVP 2 mg Q2H PRN Administration Severe Pain (7-10) Pantoprazole Sodium 40 mg 04/07/20 09:00 04/12/20 09:20 Pantoprazole 40 Mg Tab PO 40 mg DAILY MK Administration Prednisone 40 mg 04/11/20 08:00 04/12/20 09:20 Prednisone 20 Mg Tab PO 40 mg QAM-WM MK Administration Sodium Chloride 10 ml 04/05/20 21:00 04/12/20 09:21 Flush - Normal Saline 10 Ml Syringe IVF 10 ml Q12HR MK Administration Tamsulosin HCl 0.4 mg 04/11/20 09:00 04/12/20 09:20 Tamsulosin Hcl 0.4 Mg Cap PO 0.4 mg DAILY MK Administration - Exam General Appearance: ill appearing Eye: PERRL ENT: normocephalic atraumatic, no oropharyngeal lesions Neck: supple, symmetric, no JVD, no thyromegaly Heart: RRR, no murmur, no gallops, no rubs, normal peripheral pulses Respiratory: CTAB, no wheezes, no rales, no ronchi, normal chest expansion Gastrointestinal: soft, non-tender, non-distended, normal bowel sounds Neurological: cranial nerve grossly intact, normal sensation to touch Musculoskeletal: generalized weakness Psychiatric: normal affect, normal behavior, A&O x 3 Hosp A/P (1) Acute on chronic respiratory failure with hypoxia and hypercapnia Code(s): J96.21 - ACUTE AND CHRONIC RESPIRATORY FAILURE WITH HYPOXIA; J96.22 - ACUTE AND CHRONIC RESPIRATORY FAILURE WITH HYPERCAPNIA Status: Acute Plan: Secondary to COPD. Continue O2 supplementation. (2) COPD exacerbation Code(s): J44.1 - CHRONIC OBSTRUCTIVE PULMONARY DISEASE W (ACUTE) EXACERBATION Status: Acute Plan: I am going to continue bronchodilators. (3) Pneumonia, aspiration Code(s): J69.0 - PNEUMONITIS DUE TO INHALATION OF FOOD AND VOMIT Status: Acute Qualifiers: Aspiration pneumonia type: due to regurgitated food Laterality: right Lung location: lower lobe of lung Qualified Code(s): J69.0 - Pneumonitis due to inhalation of food and vomit (4) Anxiety and depression Code(s): F41.9 - ANXIETY DISORDER, UNSPECIFIED; F32.9 - MAJOR DEPRESSIVE DISORD ER, SINGLE EPISODE, UNSPECIFIED Status: Chronic (5) Urinary retention Code(s): R33.9 - RETENTION OF URINE, UNSPECIFIED Status: Acute (6) Urinary retention due to benign prostatic hyperplasia Code(s): N40.1 - BENIGN PROSTATIC HYPERPLASIA WITH LOWER URINARY TRACT SYMP; R33.8 - OTHER RETENTION OF URINE Status: Acute - Plan old records reviewed/req, plan discussed w/ family, incentive spirometry, out of bed/ambulate Consults: Palliative Care
[2020-04-12] MEDS ORDERED: HYDROcodone/Acetaminophen 5/325 mg Tablet PO SCH (17:45)
[2020-04-13] MEDS: Budesonide 0.5 MG/2 ML NEB NEB SCH (07:23)
[2020-04-13] MEDS: Tamsulosin HCl 0.4 MG CAP PO SCH (08:27)
[2020-04-13] MEDS: Furosemide 20 MG TAB PO SCH (08:27)
[2020-04-13] MEDS: predniSONE 20 MG TAB PO SCH (08:27)
[2020-04-13] MEDS: clonazePAM 0.5 MG TAB PO SCH (08:27)
[2020-04-13] MEDS: Aspirin 81 mg Enteric Coated Tablet PO SCH (08:27)
[2020-04-13] MEDS: Enoxaparin Sodium 40 MG/0.4 ML SYRINGE SC SCH (08:27)
--- NOTE | 2020-04-13 08:43 | PRG ---
DATE OF SERVICE: 04/13/2020 SUBJECTIVE: Mr. Montelongo is about the same. He is requiring BiPAP almost all the time. He is generally uncomfortable throughout. OBJECTIVE: VITAL SIGNS: Temperature 96.4, pulse 91, blood pressure 94/55, O2 sat 100%. HEENT: Unremarkable. NECK: No JVD. LUNGS: Distant, but clear breath sounds. CARDIAC: S1 and S2, regular. ABDOMEN: Soft. EXTREMITIES: No edema. ASSESSMENT: 1. Severe, end-stage chronic obstructive pulmonary disease. 2. Chronic respiratory failure secondary to chronic obstructive pulmonary disease. PLAN: The patient is at his baseline from a COPD and probably can go home on a Trilogy ventilator. No other advice at this time. Job ID: [id number]
[2020-04-13] MEDS ORDERED: Digoxin 0.125 MG TAB PO SCH (09:00)
[2020-04-13] MEDS: Mometasone 200 MCG/Formoterol 5 MCG 120 PUFF INHALER INH SCH (10:57)
[2020-04-13 11:51] VITALS: TEMP 97.2
--- NOTE | 2020-04-13 17:00 | PDOC.DS.DS ---
Provider - Provider Date of Admission: 04/05/20 20:41 Date of Discharge: 04/13/20 Admitting Provider: Reyna Puckett MD Consultations: Pulmonary, Urology Primary Care Physician: Bubba Perry NP Course - Hospital Course Hospital Course: This is a 74-year-old patient with end-stage COPD who presented to the hospital initially with what above described as lower abdominal pain. He ultimately was found to have acute urinary retention and he was promptly admitted for further stabilization. He unfortunately went into COPD exacerbation during the stay. He appeared to be at his baseline from a COPD standpoint following now couple days of being hospitalized. With regard to the urinary retention we ask a urologist to evaluate him and he recommended patient go home with a Dial catheter. This can be taken off as outpatient on a routine visit with the urologist. The patient was promptly discharged home today. His prognosis is p oor. I think he has severe pulmonary cachexia and end-stage COPD. Resuscitation Status: 04/07/20 10:39 Resuscitation Status Routine Resuscitation Status: DNAR: NO Resuscitation Discussed with: //PATIENT - Labs Lab Results: 04/10/20 06:43 04/10/20 06:43 Microbiology - Entire Visit 04/05/20 19:37 Venous blood - Right Arm Blood Culture - Final NO GROWTH IN 5 DAYS 04/05/20 19:37 Venous blood - Left Arm Blood Culture - Final Klebsiella pneumoniae ssp pneu 04/05/20 21:06 Nasal swab Influenza Types A,B Direct EIA - Final - Physical Exam Vitals: Vital Signs (12 hours) Temp Pulse Resp Pulse Ox 04/13/20 11:50 97.2 F L 04/13/20 11:06 115 H 22 H 100 04/13/20 11:05 115 H 20 100 04/13/20 08:27 98 04/13/20 08:20 100 04/13/20 07:31 96.4 F L 04/13/20 07:26 100 04/13/20 07:23 98 19 97 Weight Admit Weight 113 lb Weight 113 lb 8 oz Most Recent Monitor Data Heart Rate from ECG 114 NIBP 101/64 NIBP BP-Mean 76 Respiration from ECG 13 SpO2 100 Physical Exam: The patient was seen and examined on the day of discharge. Problem - Problem (1) Acute on chronic respiratory failure with hypoxia and hypercapnia Code(s): J96.21 - ACUTE AND CHRONIC RESPIRATORY FAILURE WITH HYPOXIA; J96.22 - ACUTE AND CHRONIC RESPIRATORY FAILURE WITH HYPERCAPNIA Status: Acute (2) COPD exacerbation Code(s): J44.1 - CHRONIC OBSTRUCTIVE PULMONARY DISEASE W (ACUTE) EXACERBATION Status: Acute (3) Pneumonia, aspiration Code(s): J69.0 - PNEUMONITIS DUE TO INHALATION OF FOOD AND VOMIT Status: Acute Qualifiers: Aspiration pneumonia type: due to regurgitated food Laterality: right Lung location: lower lobe of lung Qualified Code(s): J69.0 - Pneumonitis due to inhalation of food and vomit (4) Anxiety and depression Code(s): F41.9 - ANXIETY DISORDER, UNSPECIFIED; F32.9 - MAJOR DEPRESSIVE DISORDER, SINGLE EPISODE, UNSPECIFIED Status: Chronic (5) Urinary retention Code(s): R33.9 - RETENTION OF URINE, UNSPECIFIED Status: Acute (6) Urinary retention due to benign prostatic hyperplasia Code(s): N40.1 - BENIGN PROSTATIC HYPERPLASIA WITH LOWER URINARY TRACT SYMP; R33.8 - OTHER RETENTION OF URINE Status: Acute Plan - Discharge Medications Prescriptions: Tamsulosin HCl [Flomax] 0.4 mg PO DAILY #30 cap Tamsulosin HCl [Flomax] 0.4 mg PO DAILY #90 capsule Digoxin [Lanoxin] 0.125 mg PO DAILY #30 tab Home Medications: Medication Instructions Recorded Confirmed Type Arformoterol [Brovana] 15 mcg NEB BID 04/06/20 04/06/20 History Budesonide 1 ampule INH DAILY 04/06/20 04/06/20 History Ibuprofen 600 mg PO Q6H 04/06/20 04/06/20 History Ipratropium/Albuterol Sulfate 1 ampule INH Q4HR 04/06/20 04/06/20 History clonazePAM [Clonazepam] 0.5 mg PO BID 04/06/20 04/06/20 History Aspirin [Ecotrin Low Strength] 81 mg PO DAILY tab 04/13/20 Rx Budesonide [Pulmicort Neb Solution] 0.5 mg NEB BID-RT ampule 04/13/20 Rx Digoxin [Lanoxin] 0.125 mg PO DAILY tab 04/13/20 Rx Digoxin [Lanoxin] 0.125 mg PO DAILY #30 tab 04/13/20 Rx Ipratropium/Albuterol Sulfate 3 ml NEB [id number] neb 04/13/20 Rx [DuoNeb] Mometasone/Formoterol 200/5 2 puff INH BID-RT inh 04/13/20 Rx [Dulera 200 Mcg/5 Mcg Inhaler] Pantoprazole [Protonix] 40 mg PO DAILY tab 04/13/20 Rx Tamsulosin HCl [Flomax] 0.4 mg PO DAILY #30 cap 04/13/20 Rx Tamsulosin HCl [Flomax] 0.4 mg PO DAILY #90 capsule 04/13/20 Rx predniSONE 40 mg PO QAM-WM tab 04/13/20 Rx Allergies: No Known Allergies Allergy (Verified 08/12/19 14:20) per pt - Discharge Instructions Discharge Instructions:: FOCUS: Transition from Acute Care after Discharge GOAL: Successful transition to care in the community YOUR TASKS: (1) review all information outlined in your discharge packet (2) follow any instructions outlined in your discharge packet (3) contact your primary care provider if you have questions or need additional assistance See patient discharge instruction sheet for detailed teaching. Patient verbalizes understanding of medications and is able to verbalize follow-up care. See Discharge Plan for additional discharge information. Patient secured in private vehicle prior to departure. Nourishment:: Heart Healthy Diet Therapies:: Home Health, Occupational Therapy, Physical Therapy Equipment/Supplies:: Not Applicable IV Therapy:: Not Applicable - Follow up Plan Referrals: Benji Norwood MD [Active] - (Call office to schedule a follow-up appointment with Urologist, Dr. Norwood.) Bubba Perry NP [Primary Care Provider] - Disposition: HOME HEALTH Quality - Care Measures CORE MEASURES:: N/A
--- NOTE | 2020-04-15 09:17 | EKG ---
Test Reason : STAT Blood Pressure : / mmHG Vent. Rate : 124 BPM Atrial Rate : 124 BPM P-R Int : 122 ms QRS Dur : 080 ms QT Int : 320 ms P-R-T Axes : 051 020 074 degrees QTc Int : 459 ms Sinus tachycardia Nonspecific ST abnormality Abnormal ECG When compared with ECG of 06-APR-2020 12:09, (Unconfirmed) Nonspecific T wave abnormality no longer evident in Lateral leads Confirmed by CEDRIC YUNG, VIVI ([id number]) on 04/15/2020 9:17:12 AM Referred By: ABDULKADIR Confirmed By:VIVI STEELE MD
--- NOTE | 2020-04-15 09:21 | EKG ---
Test Reason : Blood Pressure : / mmHG Vent. Rate : 099 BPM Atrial Rate : 099 BPM P-R Int : 104 ms QRS Dur : 080 ms QT Int : 338 ms P-R-T Axes : 058 030 066 degrees QTc Int : 433 ms Sinus rhythm with marked sinus arrhythmia with short [place] Otherwise normal ECG When compared with ECG of 11-APR-2020 09:52, (Unconfirmed) No significant change was found Confirmed by VIVI STEELE MD ([id number]) on 04/15/2020 9:21:01 AM Referred By: ABDULKADIR Confirmed By:VIVI STEELE MD
== END 2020-04-13 14:48 | disposition home health service (06) | DRG 871 ==
LOC: ERS 18:51 → ERHOLD 20:41 → IMCU/EMU 04-06 16:43
PROVIDERS: ADMIT Internal Medicine; ATTEND Hospitalist
PROC: 5A09457 Assistance with Respiratory Ventilation, 24-96 Consecutive Hours, Continuous Positive Airway Pressure (ICD-10-PCS; principal; 2020-04-05)
PROC: 0T9B70Z Drainage of Bladder with Drainage Device, Via Natural or Artificial Opening (ICD-10-PCS; 2020-04-11)
DX: A41.59 Other Gram-negative sepsis (principal); J69.0 Pneumonitis due to inhalation of food and vomit; J96.21 Acute and chronic respiratory failure with hypoxia; J96.22 Acute and chronic respiratory failure with hypercapnia; E43 Unspecified severe protein-calorie malnutrition; J44.1 Chronic obstructive pulmonary disease with (acute) exacerbation; R64 Cachexia; Z68.1 Body mass index [BMI] 19.9 or less, adult; I47.1 Supraventricular tachycardia; Z66 Do not resuscitate; Z20.828 Contact with and (suspected) exposure to other viral communicable diseases; F41.9 Anxiety disorder, unspecified; R33.9 Retention of urine, unspecified; N40.1 Benign prostatic hyperplasia with lower urinary tract symptoms; R33.8 Other retention of urine; F43.10 Post-traumatic stress disorder, unspecified; F32.9 Major depressive disorder, single episode, unspecified; R79.89 Other specified abnormal findings of blood chemistry; K21.9 Gastro-esophageal reflux disease without esophagitis; M19.90 Unspecified osteoarthritis, unspecified site; K59.00 Constipation, unspecified; Z79.899 Other long term (current) drug therapy; Z79.82 Long term (current) use of aspirin; Z99.81 Dependence on supplemental oxygen; Z87.891 Personal history of nicotine dependence; Z79.51 Long term (current) use of inhaled steroids
CPT/HCPCS: 36415; 36600; 71045; 71275; 80048; 80053; 81001; 82805; 83605; 83735; 83880; 84484; 85025; 85379; 85610; 85730; 87040; 87077; 87149; 87186; 87635; 87804; 93005; 93010; 93306; 94640; 94660; 96372; 96374; J0692; J0696; J1100; J1160; J1650; J2060; J2270; J2920; J3475; J3490; J7512; J7620; J7626; Q9967; S0028; U0003

== ENCOUNTER 2021-10-21 10:51 | Inpatient (IN) | payer BC, MEDICARE ==
[2021-10-21] MEDS ORDERED: methylPREDNISolone Sod Succ/PF 125 MG/2 ML VIAL ONE ×2 (11:01→11:14)
[2021-10-21 11:47] LABS: BUN (Urea Nitrogen) 25 mg/dL (8.4-25.7); Calc. Creatinine Clearance 0 mL/min (70-130); Calcium 9.6 mg/dL (7.8-10.44); Glucose 78 mg/dL (83-110)
[2021-10-21 11:56] LABS: Anion Gap 19 mmol/L (10-20); Carbon Dioxide 34 mmol/L (23-31); Chloride 93 mmol/L (98-107); Potassium 3.4 mmol/L (3.5-5.1); Sodium 143 mmol/L (136-145)
[2021-10-21 12:03] LABS: Band 7 % (5-11); Hemoglobin 13.3 g/dL (14.0-18.0); Lymphocytes 2 % (21-51); MDiff Complete? YES; Mean Corpuscular HGB CONC 32.7 g/dL (32.0-36.0); Mean Corpuscular Hemoglobin 33.4 pg (27.0-31.0); Monocytes 3 % (0-10); Neutrophil 88 % (42-75); Platelet Count 341 thou/uL (130-400); Platelet Morphology Comment Appears Adequate; RBC Distribution Width 14.9 % (11.5-14.5); Red Blood Cell (RBC) Count 3.97 mill/uL (4.70-6.10); White Blood Cell (WBC) Count 22.1 thou/uL (4.8-10.8)
[2021-10-21 12:05] LABS: ALT (SGPT) 29 U/L (8-55); AST (SGOT) 24 U/L (5-34); Albumin 3.3 g/dL (3.4-4.8); Alkaline Phosphatase 68 U/L (40-110); Anion Gap 20 mmol/L (10-20); BUN (Urea Nitrogen) 24 mg/dL (8.4-25.7); Bilirubin, Total 3.8 mg/dL (0.2-1.2); Calc. Creatinine Clearance 0 mL/min (70-130); Calcium 9.3 mg/dL (7.8-10.44); Carbon Dioxide 34 mmol/L (23-31); Chloride 93 mmol/L (98-107); Globulin 3.2 g/dL (2.4-3.5); Glucose 73 mg/dL (83-110); Potassium 3.6 mmol/L (3.5-5.1); Protein, Total 6.5 g/dL (5.8-8.1); Sodium 143 mmol/L (136-145)
[2021-10-21] MEDS ORDERED: Azithromycin 500 MG VIAL ONE (12:25)
[2021-10-21] MEDS ORDERED: cefTRIAXone\\ROCEPHIN 1 GM VIAL ONE (12:25)
[2021-10-21 13:02] LABS: Actual Bicarbonate (HCO3a) 30.5 mEq/L (22-28); Analyzer IN Cardio ER; Base Excess (BEa) 5.5 mEq/L (-2.0 to +3.0); CO2 Tension 45.9 mmHg (35.0-45.0); Carboxyhemoglobin (COHb) 0.7 gm% (0.0-3.0); Hemoglobin (Hb) 13.6 g/dL (14.0-18.0); O2 Tension (PaO2), arterial 77.3 mmHg (> 70.0); Potassium - ABG Lab 3.14 mmol/L (3.70-5.30); pH, Arterial 7.44 (7.35-7.45)
[2021-10-21 13:03] LABS: ALV-art Gradient 150.525 mmHg (0-20); Puncture Site RBA
[2021-10-21] MEDS ORDERED: Acetaminophen 325 MG TAB PO PRN (13:50)
[2021-10-21] MEDS ORDERED: Albuterol Sulfate 2.5 mg/3 ml Neb NEB PRN (15:00)
[2021-10-21 15:45] LABS: Lactic Acid 3.6 mmol/L (0.5-2.2)
[2021-10-21 15:58] LABS: SARS-CoV-2 NAA Rapid Test Not Detected (NotDetected)
[2021-10-21] MEDS ORDERED: Lactated Ringer's 500 ML IV SCH ×4 (17:00→23:30)
[2021-10-21] MEDS: Cefepime 2 GM in Sodium Chloride 0.9% 100 ML IVPB SCH ×2 (17:30→21:06)
[2021-10-21] MEDS: methylPREDNISolone Sod Succ 40 MG VIAL IVP SCH (17:30)
[2021-10-21] MEDS: Arformoterol 15 MCG/2 ML NEB NEB SCH (18:11)
[2021-10-21] MEDS ORDERED: Budesonide 0.5 MG/2 ML NEB NEB SCH (18:30)
[2021-10-21] MEDS: Famotidine 20 MG TAB PO SCH (20:49)
[2021-10-21] MEDS ORDERED: Lactated Ringer's 250 ML IV SCH (23:30)
[2021-10-22] MEDS: methylPREDNISolone Sod Succ 40 MG VIAL IVP SCH ×5 (00:42→23:41)
[2021-10-22] MEDS ORDERED: Lactated Ringer's 1,000 ML IV SCH (02:15)
[2021-10-22 04:12] LABS: ALT (SGPT) 21 U/L (8-55); AST (SGOT) 20 U/L (5-34); Albumin 2.5 g/dL (3.4-4.8); Alkaline Phosphatase 48 U/L (40-110); Anion Gap 19 mmol/L (10-20); BUN (Urea Nitrogen) 23 mg/dL (8.4-25.7); Bilirubin, Total 1.2 mg/dL (0.2-1.2); Calc. Creatinine Clearance 61 mL/min (70-130); Carbon Dioxide 24 mmol/L (23-31); Chloride 103 mmol/L (98-107); Globulin 2.6 g/dL (2.4-3.5); Glucose 91 mg/dL (83-110); Potassium 3.8 mmol/L (3.5-5.1); Protein, Total 5.1 g/dL (5.8-8.1); Sodium 142 mmol/L (136-145)
[2021-10-22] MEDS: Cefepime 2 GM in Sodium Chloride 0.9% 100 ML IVPB SCH ×3 (05:47→21:39)
[2021-10-22] MEDS: Arformoterol 15 MCG/2 ML NEB NEB SCH ×2 (06:50→18:17)
[2021-10-22 08:02] LABS: Lactic Acid 1.8 mmol/L (0.5-2.2)
[2021-10-22] MEDS: Aspirin 81 mg Enteric Coated Tablet PO SCH (09:35)
[2021-10-22] MEDS: Gabapentin 100 MG CAP PO SCH (09:35)
[2021-10-22] MEDS: Tamsulosin HCl 0.4 MG CAP PO SCH (09:35)
[2021-10-22] MEDS: Enoxaparin Sodium 40 MG/0.4 ML SYRINGE SC SCH (09:35)
[2021-10-22] MEDS: Famotidine 20 MG TAB PO SCH ×2 (09:35→21:39)
[2021-10-22 09:54] VITALS: BMI 15.0
[2021-10-22 11:25] LABS: #Lymphocytes 0.2 thou/uL (1.20-3.40); #Monocytes 0.2 thou/uL (0.11-0.59); #Neutrophils 8.8 thou/uL (1.40-6.50); %Basophils 0.2 % (0.0-1.0); %Eosinophils 0.2 % (0.0-10.0); %Lymphocytes 2.1 % (21.0-51.0); %Monocytes 2.6 % (0.0-10.0); %Neutrophils 94.9 % (42.0-75.0); Hemoglobin 10.6 g/dL (14.0-18.0); Mean Corpuscular HGB CONC 32.1 g/dL (32.0-36.0); Mean Platelet Volume 7.9 fL (7.4-10.4); Platelet Count 244 thou/uL (130-400); RBC Distribution Width 14.5 % (11.5-14.5); Red Blood Cell (RBC) Count 3.22 mill/uL (4.70-6.10); White Blood Cell (WBC) Count 9.3 thou/uL (4.8-10.8)
[2021-10-23] MEDS: Lactated Ringer's 1,000 ML IV SCH ×2 (02:06→16:32)
[2021-10-23] MEDS: Cefepime 2 GM in Sodium Chloride 0.9% 100 ML IVPB SCH (05:50)
[2021-10-23] MEDS: methylPREDNISolone Sod Succ 40 MG VIAL IVP SCH (05:51)
[2021-10-23] MEDS: Arformoterol 15 MCG/2 ML NEB NEB SCH ×2 (07:51→18:28)
[2021-10-23] MEDS: Famotidine 20 MG TAB PO SCH ×2 (08:19→21:30)
[2021-10-23] MEDS: Aspirin 81 mg Enteric Coated Tablet PO SCH (08:19)
[2021-10-23] MEDS: Enoxaparin Sodium 40 MG/0.4 ML SYRINGE SC SCH (08:19)
[2021-10-23] MEDS: Tamsulosin HCl 0.4 MG CAP PO SCH (08:19)
[2021-10-23] MEDS: Gabapentin 100 MG CAP PO SCH (08:19)
[2021-10-23 08:31] LABS: ALT (SGPT) 17 U/L (8-55); AST (SGOT) 14 U/L (5-34); Albumin 2.5 g/dL (3.4-4.8); Alkaline Phosphatase 44 U/L (40-110); Anion Gap 11 mmol/L (10-20); BUN (Urea Nitrogen) 22 mg/dL (8.4-25.7); Bilirubin, Total 0.8 mg/dL (0.2-1.2); Calc. Creatinine Clearance 71 mL/min (70-130); Calcium 8.1 mg/dL (7.8-10.44); Carbon Dioxide 33 mmol/L (23-31); Chloride 99 mmol/L (98-107); Globulin 2.3 g/dL (2.4-3.5); Glucose 123 mg/dL (83-110); Potassium 3.6 mmol/L (3.5-5.1); Protein, Total 4.8 g/dL (5.8-8.1); Sodium 139 mmol/L (136-145)
[2021-10-23 08:32] LABS: #Lymphocytes 0.2 thou/uL (1.20-3.40); #Monocytes 0.3 thou/uL (0.11-0.59); #Neutrophils 12.7 thou/uL (1.40-6.50); %Eosinophils 0.2 % (0.0-10.0); %Lymphocytes 1.3 % (21.0-51.0); %Monocytes 2.6 % (0.0-10.0); %Neutrophils 95.9 % (42.0-75.0); Hemoglobin 9.9 g/dL (14.0-18.0); MDiff Complete? YES; Macrocytosis SLIGHT = 6-15 cells (100X) (0-5/hpf); Mean Corpuscular HGB CONC 32.6 g/dL (32.0-36.0); Mean Corpuscular Hemoglobin 34.2 pg (27.0-31.0); Platelet Count 195 thou/uL (130-400); Platelet Morphology Comment Appears Adequate; Polychromasia SLIGHT = 2-3 cells (100X) (0-2/hpf); RBC Distribution Width 14.2 % (11.5-14.5); White Blood Cell (WBC) Count 13.3 thou/uL (4.8-10.8)
[2021-10-23] MEDS: Azithromycin 250 MG TAB PO SCH (15:03)
[2021-10-23] MEDS: Cefdinir 300 MG CAP PO SCH (15:03)
[2021-10-23] MEDS: predniSONE 20 MG TAB PO SCH ×2 (16:32→21:29)
[2021-10-24 04:31] LABS: ALT (SGPT) 18 U/L (8-55); AST (SGOT) 29 U/L (5-34); Albumin 2.3 g/dL (3.4-4.8); Alkaline Phosphatase 48 U/L (40-110); Anion Gap 13 mmol/L (10-20); BUN (Urea Nitrogen) 20 mg/dL (8.4-25.7); Bilirubin, Total 0.4 mg/dL (0.2-1.2); Calc. Creatinine Clearance 75 mL/min (70-130); Calcium 8.1 mg/dL (7.8-10.44); Carbon Dioxide 28 mmol/L (23-31); Chloride 101 mmol/L (98-107); Globulin 2.7 g/dL (2.4-3.5); Glucose 120 mg/dL (83-110); Potassium 4.7 mmol/L (3.5-5.1); Sodium 137 mmol/L (136-145)
[2021-10-24 05:54] LABS: #Lymphocytes 0.2 thou/uL (1.20-3.40); #Monocytes 0.3 thou/uL (0.11-0.59); #Neutrophils 12.1 thou/uL (1.40-6.50); %Eosinophils 0.3 % (0.0-10.0); %Lymphocytes 1.2 % (21.0-51.0); %Monocytes 2.4 % (0.0-10.0); %Neutrophils 96.2 % (42.0-75.0); Hemoglobin 10.6 g/dL (14.0-18.0); Mean Corpuscular HGB CONC 33.5 g/dL (32.0-36.0); Mean Corpuscular Hemoglobin 34.8 pg (27.0-31.0); Mean Platelet Volume 9.6 fL (7.4-10.4); Platelet Count 127 thou/uL (130-400); Platelet Morphology Comment Appears Decreased; RBC Distribution Width 14.5 % (11.5-14.5); RBC Morphology Normal; Red Blood Cell (RBC) Count 3.05 mill/uL (4.70-6.10); White Blood Cell (WBC) Count 12.6 thou/uL (4.8-10.8)
[2021-10-24] MEDS: Lactated Ringer's 1,000 ML IV SCH (06:20)
[2021-10-24] MEDS: Arformoterol 15 MCG/2 ML NEB NEB SCH ×2 (07:32→19:12)
[2021-10-24] MEDS: Gabapentin 100 MG CAP PO SCH (09:24)
[2021-10-24] MEDS: predniSONE 20 MG TAB PO SCH ×2 (09:24→21:46)
[2021-10-24] MEDS: Tamsulosin HCl 0.4 MG CAP PO SCH (09:25)
[2021-10-24] MEDS: Famotidine 20 MG TAB PO SCH ×2 (09:25→21:47)
[2021-10-24] MEDS: Enoxaparin Sodium 40 MG/0.4 ML SYRINGE SC SCH (09:25)
[2021-10-24] MEDS: Aspirin 81 mg Enteric Coated Tablet PO SCH (09:25)
[2021-10-24] MEDS: Cefdinir 300 MG CAP PO SCH (13:12)
[2021-10-24] MEDS: Azithromycin 250 MG TAB PO SCH (13:12)
[2021-10-25 04:25] LABS: ALT (SGPT) 16 U/L (8-55); AST (SGOT) 11 U/L (5-34); Albumin 2.5 g/dL (3.4-4.8); Alkaline Phosphatase 47 U/L (40-110); Anion Gap 9 mmol/L (10-20); BUN (Urea Nitrogen) 17 mg/dL (8.4-25.7); Bilirubin, Total 0.5 mg/dL (0.2-1.2); Calc. Creatinine Clearance 82 mL/min (70-130); Calcium 8.3 mg/dL (7.8-10.44); Carbon Dioxide 34 mmol/L (23-31); Chloride 98 mmol/L (98-107); Glucose 110 mg/dL (83-110); Potassium 3.9 mmol/L (3.5-5.1); Protein, Total 4.5 g/dL (5.8-8.1); Sodium 137 mmol/L (136-145)
[2021-10-25 04:26] LABS: #Lymphocytes 0.1 thou/uL (1.20-3.40); #Monocytes 0.4 thou/uL (0.11-0.59); %Eosinophils 0.3 % (0.0-10.0); %Lymphocytes 1.2 % (21.0-51.0); %Monocytes 3.5 % (0.0-10.0); Mean Corpuscular HGB CONC 33.2 g/dL (32.0-36.0); Mean Platelet Volume 8.1 fL (7.4-10.4); Platelet Count 177 thou/uL (130-400); RBC Distribution Width 14.1 % (11.5-14.5); Red Blood Cell (RBC) Count 2.95 mill/uL (4.70-6.10); White Blood Cell (WBC) Count 11.5 thou/uL (4.8-10.8)
[2021-10-25] MEDS: Arformoterol 15 MCG/2 ML NEB NEB SCH (07:13)
[2021-10-25 08:06] VITALS: TEMP 98.4
[2021-10-25] MEDS: Aspirin 81 mg Enteric Coated Tablet PO SCH (08:41)
[2021-10-25] MEDS: Famotidine 20 MG TAB PO SCH (08:41)
[2021-10-25] MEDS: Enoxaparin Sodium 40 MG/0.4 ML SYRINGE SC SCH (08:42)
[2021-10-25] MEDS: Tamsulosin HCl 0.4 MG CAP PO SCH (08:42)
[2021-10-25] MEDS: Gabapentin 100 MG CAP PO SCH (08:42)
[2021-10-25] MEDS: predniSONE 20 MG TAB PO SCH (08:42)
[2021-10-25] MEDS ORDERED: Fluconazole 100 MG TAB PO SCH (09:00)
== END 2021-10-25 11:50 | disposition home or self-care (01) | DRG 871 ==
LOC: ERS 10:51 → CCU 12:26
PROVIDERS: ADMIT Student in an Organized Health Care Education/Training Program; ATTEND Emergency Medicine
PROC: 3E03329 Introduction of Other Anti-infective into Peripheral Vein, Percutaneous Approach (ICD-10-PCS; principal; 2021-10-21)
PROC: 5A09457 Assistance with Respiratory Ventilation, 24-96 Consecutive Hours, Continuous Positive Airway Pressure (ICD-10-PCS; 2021-10-21)
DX: A41.9 Sepsis, unspecified organism (principal); J96.21 Acute and chronic respiratory failure with hypoxia; J96.22 Acute and chronic respiratory failure with hypercapnia; J18.9 Pneumonia, unspecified organism; E43 Unspecified severe protein-calorie malnutrition; J44.1 Chronic obstructive pulmonary disease with (acute) exacerbation; R64 Cachexia; E87.3 Alkalosis; J44.0 Chronic obstructive pulmonary disease with (acute) lower respiratory infection; Z68.1 Body mass index [BMI] 19.9 or less, adult; N40.1 Benign prostatic hyperplasia with lower urinary tract symptoms; Z51.5 Encounter for palliative care; K21.9 Gastro-esophageal reflux disease without esophagitis; Z66 Do not resuscitate; D64.9 Anemia, unspecified; F43.10 Post-traumatic stress disorder, unspecified; F41.9 Anxiety disorder, unspecified; R39.15 Urgency of urination; E87.6 Hypokalemia; Z79.899 Other long term (current) drug therapy; Z79.82 Long term (current) use of aspirin; Z79.51 Long term (current) use of inhaled steroids; Z79.52 Long term (current) use of systemic steroids; Z98.42 Cataract extraction status, left eye; Z98.41 Cataract extraction status, right eye; Z87.891 Personal history of nicotine dependence; Z99.89 Dependence on other enabling machines and devices
CPT/HCPCS: 36415; 36600; 51702; 71045; 80048; 80053; 82805; 83605; 83880; 84145; 84484; 85025; 87040; 87086; 87804; 93005; 94640; 94660; 96361; 96365; 96367; 96375; J0456; J0692; J0696; J1650; J2920; J2930; J3490; J7120; J7512; J7620; U0002